=== PATIENT | male | born 1945 | race Caucasian/White ===

== ENCOUNTER 2018-01-29 08:00 | Outpatient (CLI) | payer MEDICARE ==
[2018-01-29 12:51] LABS: BASOPHILS # (AUTO) 0.1 10^3/uL (0.0-0.1); EOSINOPHILS # (AUTO) 0.2 10^3/uL (0.0-0.7); EOSINOPHILS % (AUTO) 2.3 %; HGB - HEMOGLOBIN 10.7 g/dL (14.0-18.0); LYMPHOCYTES # (AUTO) 1.3 10^3/uL (1.5-3.5); LYMPHOCYTES % (AUTO) 18.2 %; MEAN CORPUSCULAR HEMOGLOBIN 26.4 pg (27.0-31.0); MEAN CORPUSCULAR VOLUME 79.9 fL (80.0-94.0); MEAN PLATELET VOLUME 9.8 fL (7.4-11.4); MONOCYTES # (AUTO) 0.7 10^3/uL (0.0-1.0); MONOCYTES % (AUTO) 9.2 %; NEUTROPHILS # (AUTO) 5.1 10^3/uL (1.5-6.6); NEUTROPHILS % (AUTO) 69.3 %; PLT - PLATELET COUNT 235 10^3/uL (130-450); RED BLOOD COUNT 4.06 10^6/uL (4.70-6.10); RED CELL DISTRIBUTION WIDTH 16.9 % (12.0-15.0); WHITE BLOOD COUNT 7.4 x10^3/uL (4.8-10.8)
[2018-01-29 13:21] LABS: THYROID STIMULATING HORMONE 1.33 uIU/mL (0.34-5.60)
[2018-01-29 13:22] LABS: ALBUMIN 3.7 g/dL (3.2-5.5); ALBUMIN/GLOBULIN RATIO 1.1 (1.0-2.2); ALKALINE PHOSPHATASE 68 IU/L (42-121); ALT ALANINE AMINOTRANSFERASE 16 IU/L (10-60); AST ASPARTATE AMINOTRANSFERASE 18 IU/L (10-42); BILIRUBIN,TOTAL 0.4 mg/dL (0.2-1.0); BUN - BLOOD UREA NITROGEN 20 mg/dL (6-20); CALCIUM 8.5 mg/dL (8.5-10.3); CARBON DIOXIDE - CO2 24 mmol/L (21-32); CHLORIDE 102 mmol/L (101-111); CHOL/HDL RATIO 3.1 (<5.0); CHOLESTEROL 141 mg/dL; GFR - MDRD 73 (>89); GLUCOSE 89 mg/dL (70-100); HDL CHOLESTEROL 45 mg/dL; LDL CHOLESTEROL,CALCULATED 79 mg/dL; LDL/HDL RATIO 1.8 (<3.6); SODIUM 135 mmol/L (135-145); TOTAL PROTEIN 7.1 g/dL (6.7-8.2); VLDL CHOLESTEROL 17 mg/dL
[2018-01-31 07:39] LABS: % IRON SATURATION 14 % (20-50); IRON 35 ug/dL (45-182); TOTAL IRON BINDING CAPACITY 258 ug/dL (250-450); TRANSFERRIN 184 mg/dL (180-329)
[2018-01-31 07:42] LABS: FERRITIN 345.5 ng/mL (23.9-336.2)
== END 2018-01-29 08:01 | disposition home or self-care (01) ==
LOC: LAB.N 08:00
PROVIDERS: ATTEND Internal Medicine
DX: Z13.6 Encounter for screening for cardiovascular disorders (principal); E78.5 Hyperlipidemia, unspecified; B35.1 Tinea unguium; R41.3 Other amnesia; D64.9 Anemia, unspecified; D50.9 Iron deficiency anemia, unspecified
CPT/HCPCS: 36415; 80053; 80061; 82607; 82728; 83540; 83721; 84443; 84466; 85025; 86780

== ENCOUNTER 2018-07-06 08:00 | Outpatient (CLI) | payer MEDICARE | END 2018-07-06 08:01 | disposition home or self-care (01) | LOC: LAB.N 08:00 | PROVIDERS: ATTEND Internal Medicine | DX: K62.1 Rectal polyp (principal) | CPT/HCPCS: 36415; 82565; 85014; 85027 ==

== ENCOUNTER 2019-10-15 14:40 | Emergency (ER) | payer MEDICARE ==
[2019-10-15 14:53] VITALS: BP 161/80
--- NOTE | 2019-10-15 14:59 | ED Physician Documentation ---
History of Present Illness - Stated complaint Stated Complaint: LT ARM LAC - Chief complaint Chief Complaint: Laceration - Additonal information Additional information: This is a 74-year-old male presents with a laceration of. He is opening a box of the [place] knife and it slipped and cut tissue of his volar forearm. He had some mild bleeding which was controlled with direct pressure. He does not know when his last tetanus was. He denies any weakness or numbness or difficulty moving his fingers or wrist or arm. Review of Systems Skin: reports: Laceration (s) Musculoskeletal: reports: Extremity pain PD PAST MEDICAL HISTORY - Allergies Allergies/Adverse Reactions: Allergies Allergy/AdvReac Type Severity Reaction Status Date / Time No Known Drug Allergies Allergy Verified 10/15/19 14:44 PD ED PE NORMAL - General General: Alert and oriented X 3 - HEENT HEENT: Atraumatic - Cardiac Cardiac: Strong equal pulses - Respiratory Respiratory: No respiratory distress - Extremities Extremities: Other (There is a 1.5 cm laceration to the left forearm that extends just through the epidermis, there is some subcutaneous tissue visible but there is no tendon or muscle damage. Patient has no active bleeding, no foreign body seen. Is strong distal radial and ulnar pulses, brisk capillary refill normal movement of his wrist and fingers, sensation to light touch intact over the entire distal extremity.) Results - Vitals Vitals: Vital Signs - 24 hr 10/15/19 14:44 Temperature 36.6 C Heart Rate 87 Respiratory 17 Rate Blood Pressure 161/80 H O2 Saturation 100 Oxygen O2 Source Room air Procedures - Laceration (location) L forearm Length in cm: 1.5 Wound type: Linear Neurovascular status: Sensory intact, Motor intact, Vascular intact Tendon involvement: Tendon intact Skin layer closure: Dermabond, Steri strips Other: Patient tolerated well, No complications, Tetanus booster given Complexity: Simple PD MEDICAL DECISION MAKING - ED course ED course: Patient presents with a superficial 1 simple laceration of his left forearm and extend into any deeper tissues. He is neurovascularly intact. The wound was irrigated with normal saline copiously, and then repaired with Steri-Strips and Dermabond within excellent results. His tetanus was updated. I reviewed return precautions including signs of infection, and discussed wound care, and patient was discharged home in the care of his Departure - Departure Disposition: 01 Home, Self Care Clinical Impression: Laceration Condition: Good Instructions: ED Laceration All Follow-Up: Radha Randall MD [Primary Care Provider] - As Needed Comments: Your cut was repaired with butterflies and skin glue. These will flake off on their own after a week or so. If the wound splits open in the next day or two return to the emergency department. Keep an eye out for signs of infection such as redness streaking up the arm or pus draining from the wound. You may run water over the area, but do not scrub at it until the skin glue has fallen off
[2019-10-15] MEDS ORDERED: TETANUS/DIPHTHERIA/PERTUSSIS 0.5 ML SYRINGE IM ONE (15:00)
== END 2019-10-15 15:16 | disposition home or self-care (01) ==
LOC: ED 14:40
DX: S51.812A Laceration without foreign body of left forearm, initial encounter (principal); W26.0XXA Contact with knife, initial encounter; Y93.89 Activity, other specified; Z23 Encounter for immunization
CPT/HCPCS: 12001; 90471

== ENCOUNTER 2020-08-30 14:59 | Outpatient (CLI) | payer MEDICARE | END 2020-08-30 15:00 | disposition EMS.NT | LOC: EMS 14:59 | PROVIDERS: ATTEND Surgery | DX: Z03.89 Encounter for observation for other suspected diseases and conditions ruled out (principal) ==

== ENCOUNTER 2020-09-04 11:27 | Outpatient (CLI) | payer MEDICARE ==
[2020-09-04] MEDS ORDERED: IOVERSOL 320 50 ML VIAL ONE (11:44)
[2020-09-04] MEDS ORDERED: IOVERSOL 320 100 ML VIAL IVP ONE ×2 (11:44→16:03)
--- NOTE | 2020-09-04 14:14 | CT Report ---
PROCEDURE: CHEST W INDICATIONS: OTHER ABNL FINDINGS IN SPECIMENS FROM OTH ORG/TISS CONTRAST: IV CONTRAST: Optiray 320 ml: 100 PO CONTRAST: Optiray 320 ml50 TECHNIQUE: After the administration of intravenous contrast, 5 mm thick sections acquired from the pulmonary api olu to the posterior costophrenic angles. 7 mm thick coronal MIP reformats were acquired. For radia tion dose reduction, the following was used: automated exposure control, adjustment of mA and/or kV according to patient size. COMPARISON: None. FINDINGS: Image quality: Excellent. Lungs and pleura: Mild emphysematous changes at the lung apices. Moderate to large bilateral depende ntly layering pleural effusions are present. There is compressive atelectasis of the posterior lower lobes. The aerated portions of the lungs are normal without nodules or consolidations. Central and pe ripheral airways are patent and normal in caliber. Mediastinum: Heart size is normal. Dense coronary artery calcification. No pericardial effusion. No mediastinal or hilar adenopathy by size criteria. Thoracic aorta and central pulmonary arteries are normal in size. Moderate aortic arch calcification. Esophagus is normal in caliber. No hiatal radha ia. Bones and chest wall: Mild circumferential subcutaneous edema. No suspicious bony lesions. No verte bral body compression fractures. No axillary or supraclavicular adenopathy by size criteria. Thyroi d gland is within normal limits.. IMPRESSION: 1. Symmetric, moderate to large bilateral pleural effusions without visible pleural thickening or irr egularity. 2. Dense coronary artery calcification and normal sized heart. 3. No adenopathy in the chest. Reviewed by: Marleny Pablo MD on 09/04/2020 2:13 PM PDT Approved by: Marleny Pablo MD on 09/04/2020 2:13 PM PDT Station ID: [id number]
--- NOTE | 2020-09-04 14:24 | CT Report ---
PROCEDURE: Abdomen/Pelvis W INDICATIONS: OTH ABNL FINDINGS IN SPECIMENS FROM OTH ORG/TISSUE CONTRAST: IV CONTRAST: Optiray 320 ml: 100 PO CONTRAST: Optiray 320 ml50 TECHNIQUE: After the administration of 100 cc Optiray 320 IV and oral contrast, 5 mm thick sections acquired fro m the diaphragms to the symphysis. 5 mm thick coronal and sagittal reformats were acquired. For rad iation dose reduction, the following was used: automated exposure control, adjustment of mA and/or k V according to patient size. COMPARISON: None. FINDINGS: Image quality: Excellent. ABDOMEN: Lung bases: Lung bases demonstrate symmetric large bilateral pleural effusions. Heart size is dmitriy l. Solid organs: Subcentimeter nonspecific hypodensity present in segment V inferiorly. The liver appear s otherwise normal. The spleen demonstrates several indistinct hypodensities, the largest in the infe rior pole measures roughly 3.1 cm. Gallbladder is unremarkable. Biliary system is non dilated. Jackson creas enhances normally. No adrenal nodules. Kidneys demonstrate normal size and enhancement, witho ut hydronephrosis. There is a partially exophytic cyst arising from the upper pole of the right kidne y. Peritoneum and bowel: Small amount of ascites is present in the perihepatic, perisplenic, and pelvic regions. Small hydroceles are partially imaged. There is diffuse haziness throughout the mesentery. B owel loops demonstrate normal wall thickness and caliber. No free fluid or air. Nodes and vessels: Bulky confluent soft tissue is present in the periaortic retroperitoneum surroundi ng the aorta, displacing it anteriorly, and encasing renal arteries and mesenteric origins. Left retr ocrural bulky adenopathy and large common iliac nodes are present. Moderate size central mesenteric l ymph node measuring 2 cm in short axis on series 3 image 33. Heavy abdominal aortic and branch artery calcification. Distal abdominal aortic aneurysm measuring 3.1 cm. The inferior vena cava is normal s ize. Miscellaneous: No ventral hernias. Diffuse subcutaneous edema consistent with anasarca. PELVIS: Genitourinary: Bladder wall thickness is normal. Normal size prostate gland. Miscellaneous: Small fat and fluid containing bilateral inguinal hernias. There is heavy vascular luis cification of the internal and external iliac arteries. There is a prominent left external iliac odalis ry. No inguinal adenopathy. Bones: No suspicious bony lesions. No vertebral body compression fractures. IMPRESSION: 1. Extensive bulky and confluent retroperitoneal adenopathy with some retrocrural, mesenteric, and le ft external iliac lymph nodes. Findings are suspicious for lymphoma, though metastatic disease cannot be excluded. A discrete primary tumor is not identified. 2. Multiple indistinct splenic hypodensities. 3. Small amount of ascites. 4. Diffuse anasarca. 5. Bilateral pleural effusions. 6. Heavy systemic atherosclerotic calcification. Reviewed by: Marleny Pablo MD on 09/04/2020 2:23 PM PDT Approved by: Marleny Pablo MD on 09/04/2020 2:23 PM PDT Station ID: [id number]
[2020-09-04] MEDS ORDERED: IOVERSOL 320 50 ML VIAL PO ONE (16:03)
== END 2020-09-04 11:28 | disposition home or self-care (01) ==
LOC: MAC.MOP 11:27
PROVIDERS: ATTEND Internal Medicine
DX: R59.9 Enlarged lymph nodes, unspecified (principal); R60.1 Generalized edema; J90 Pleural effusion, not elsewhere classified; R93.5 Abnormal findings on diagnostic imaging of other abdominal regions, including retroperitoneum
CPT/HCPCS: 71260; 74177; Q9967

== ENCOUNTER 2020-09-17 17:11 | Outpatient (CLI) | payer MEDICARE | END 2020-09-17 17:12 | disposition critical access hospital (66) | LOC: EMS 17:11 | PROVIDERS: ATTEND Surgery | DX: R41.0 Disorientation, unspecified (principal) | CPT/HCPCS: A0425; A0429 ==

== ENCOUNTER 2020-09-17 18:07 | Inpatient (IN) | payer MEDICARE ==
[2020-09-17 18:24] LABS: BASOPHILS % (AUTO) 0.2 %; HGB - HEMOGLOBIN 9.1 g/dL (14.0-18.0); LYMPHOCYTES # (AUTO) 0.3 10^3/uL (1.5-3.5); MEAN CORPUSCULAR HGB CONC 29.4 g/dL (32.0-36.0); MEAN CORPUSCULAR VOLUME 75.1 fL (80.0-94.0); MONOCYTES # (AUTO) 0.4 10^3/uL (0.0-1.0); MONOCYTES % (AUTO) 6.2 %; NEUTROPHILS # (AUTO) 5.6 10^3/uL (1.5-6.6); NEUTROPHILS % (AUTO) 89.1 %; PLT - PLATELET COUNT 250 10^3/uL (130-450); RED BLOOD COUNT 4.13 10^6/uL (4.70-6.10); RED CELL DISTRIBUTION WIDTH 24.4 % (12.0-15.0); WHITE BLOOD COUNT 6.3 x10^3/uL (4.8-10.8)
--- NOTE | 2020-09-17 18:25 | ED Physician Documentation ---
History of Present Illness - Stated complaint Stated Complaint: ALOC - History obtained from History obtained from: Patient, Family - Additonal information Additional information: 74-year-old male was brought into the emergency department for evaluation of altered mental patient. His reports that over the last few days he has been intermittently agitated or sometimes confused. Today he has been calm. There is concern in his history for suspected lymphoma. He recently had a CT scan that showed retroperitoneal lymphadenopathy. Metastatic disease is not yet ruled out. The patient is scheduled to undergo a biopsy at [facility] on October 07. His reports that he has been having recurrent falls but this has been ongoing for many months. At baseline Dominic is now mostly bedbound and is now unable to get up with a walker. She is using a bedside commode sometimes but mostly using depends diapers. Past medical history is most significant for anemia. He did recently undergo a colonoscopy and which they found bleeding ulcers. His reports that he was started on omeprazole and the black stools have since stopped. Patient is a former smoker. On initial presentation patient had saturations of 88% on room air. He was placed on 2 L nasal cannula with improvement of sats into the mid 90s Review of Systems Unable to obtain: AMS Constitutional: denies: Fever, Chills Cardiac: denies: Chest pain / pressure, Palpitations Respiratory: denies: Dyspnea, Cough GI: reports: Bloody / black stool Neurologic: reports: Confused, Altered mental status PD PAST MEDICAL HISTORY - Past Surgical History Past Surgical History: Yes - Present Medications Home Medications: Ambulatory Orders Medication Instructions Recorded Confirmed Omeprazole Magnesium [Prilosec] 1 tab PO DAILY 09/09/20 09/09/20 Lidocaine 5 % TOP Q4HR PRN 09/15/20 09/15/20 - Allergies Allergies/Adverse Reactions: Allergies Allergy/AdvReac Type Severity Reaction Status Date / Time No Known Drug Allergies Allergy Verified 08/05/20 10:40 - Social History Does the pt smoke?: No Smoking Status: Former smoker - Immunizations Immunizations are current?: No PD ED PE EXPANDED - General General: Alert, No acute distress, Disheveled, poorly kept - HEENT HEENT: PERRL, EOMI - Neck Neck: Supple w/out meningeal sx. No: Adenopathy, Limited ROM - Cardiac Cardiac: Regular Rate, Irregularly irregular, Murmur Present, Radial strong equal, Pedal strong equal, Cap refill < 2 sec - Respiratory Respiratory: Clear to ausultation anum. No: Distress, Labored - Abdomen Abdomen: Normal Bowel sounds. No: Tender to palpation - Derm Derm: Bruising (Multiple areas of bruising seen on upper arms and hands) - Extremities Extremities: Left foot (Unstageable decubitus ulcer left heel), Other (Swelling of both the arms and legs pitting edema of all 4 extremities) - Neuro Neuro: Confused, CNII-XII intact, Normal speech - GCS Eye Opening: Spontaneous Motor: Obeys Commands Verbal: Confused Total: 14 Results - Vitals Vitals: Vital Signs - 24 hr 09/17/20 09/17/20 09/17/20 18:10 18:20 18:30 Temperature 37.6 C H Heart Rate 103 H 109 H 99 Respiratory 18 23 24 Rate Blood Pressure 175/96 H 152/96 H 129/88 H O2 Saturation 88 L 09/17/20 09/17/20 19:03 19:13 Temperature 37.5 C Heart Rate 97 Respiratory 22 Rate Blood Pressure 128/88 H O2 Saturation 90 L 97 Oxygen O2 Source Nasal cannula - EKG (time done) 1826 Rate: Rate (enter#) (110) Rhythm: Atrial fibrillation [place]: Other Intervals: Normal NM, Prolonged QT QRS: Normal Ischemia: Normal ST segments Compare to prior EKG: Old EKG unavailable Computer interpretation: Agree with computer - Labs Labs: Laboratory Tests 09/17/20 09/17/20 09/17/20 18:01 18:01 18:01 WBC 6.3 RBC 4.13 L Hgb 9.1 L Hct 31.0 L MCV 75.1 L MCH 22.0 L MCHC 29.4 L RDW 24.4 H Plt Count 250 MPV 10.0 Neut # (Auto) 5.6 Lymph # (Auto) 0.3 L [place] # (Auto) 0.4 Eos # (Auto) 0.0 Baso # (Auto) 0.0 Absolute Nucleated RBC 0.00 Nucleated RBC % 0.0 Manual Slide Review Indicated Platelet Estimate NORMAL (130-450,000) Platelet Morphology NORMAL APPEARANCE RBC Morph Micro Appear 1+ MICROCYTOSIS PT INR Sodium 131 L Potassium 3.7 Chloride 91 L Carbon Dioxide 27 Anion Gap 13.0 BUN 17 Creatinine 0.6 Estimated GFR (MDRD) 131 Glucose 128 H Lactic Acid Calcium 7.8 L Total Bilirubin 0.6 AST 28 ALT 22 Alkaline Phosphatase 133 H Troponin I High Sens 91.9 H* B-Natriuretic Peptide Total Protein 5.8 L Albumin 2.0 L Globulin 3.8 Albumin/Globulin Ratio 0.5 L Lipase 21 L Urine Color Urine Clarity Urine pH Ur Specific [place] Urine Protein Urine Glucose (UA) Urine Ketones Urine Occult Blood Urine Nitrite Urine Bilirubin Urine Urobilinogen Ur Leukocyte Esterase Ur Microscopic Review Urine Culture Comments Urine Opiates Screen Ur Oxycodone Screen Urine Methadone Screen Ur Propoxyphene Screen Ur Barbiturates Screen Ur Tricyclics Screen Ur Phencyclidine Scrn Ur Amphetamine Screen U Methamphetamines Scrn U Benzodiazepines Scrn Urine Cocaine Screen U Cannabinoids Screen 09/17/20 09/17/20 09/17/20 18:01 18:01 18:01 WBC RBC Hgb Hct MCV MCH MCHC RDW Plt Count MPV Neut # (Auto) Lymph # (Auto) [place] # (Auto) Eos # (Auto) Baso # (Auto) Absolute Nucleated RBC Nucleated RBC % Manual Slide Review Platelet Estimate Platelet Morphology RBC Morph Micro Appear PT 13.1 H INR 1.2 Sodium Potassium Chloride Carbon Dioxide Anion Gap BUN Creatinine Estimated GFR (MDRD) Glucose Lactic Acid 2.2 Calcium Total Bilirubin AST ALT Alkaline Phosphatase Troponin I High Sens B-Natriuretic Peptide 2133 H Total Protein Albumin Globulin Albumin/Globulin Ratio Lipase Urine Color Urine Clarity Urine pH Ur Specific [place] Urine Protein Urine Glucose (UA) Urine Ketones Urine Occult Blood Urine Nitrite Urine Bilirubin Urine Urobilinogen Ur Leukocyte Esterase Ur Microscopic Review Urine Culture Comments Urine Opiates Screen Ur Oxycodone Screen Urine Methadone Screen Ur Propoxyphene Screen Ur Barbiturates Screen Ur Tricyclics Screen Ur Phencyclidine Scrn Ur Amphetamine Screen U Methamphetamines Scrn U Benzodiazepines Scrn Urine Cocaine Screen U Cannabinoids Screen 09/17/20 18:35 WBC RBC Hgb Hct MCV MCH MCHC RDW Plt Count MPV Neut # (Auto) Lymph # (Auto) [place] # (Auto) Eos # (Auto) Baso # (Auto) Absolute Nucleated RBC Nucleated RBC % Manual Slide Review Platelet Estimate Platelet Morphology RBC Morph Micro Appear PT INR Sodium Potassium Chloride Carbon Dioxide Anion Gap BUN Creatinine Estimated GFR (MDRD) Glucose Lactic Acid Calcium Total Bilirubin AST ALT Alkaline Phosphatase Troponin I High Sens B-Natriuretic Peptide Total Protein Albumin Globulin Albumin/Globulin Ratio Lipase Urine Color YELLOW Urine Clarity CLEAR Urine pH 6.0 Ur Specific [place] 1.010 Urine Protein NEGATIVE Urine Glucose (UA) NEGATIVE Urine Ketones NEGATIVE Urine Occult Blood NEGATIVE Urine Nitrite NEGATIVE Urine Bilirubin NEGATIVE Urine Urobilinogen 1 (NORMAL) Ur Leukocyte Esterase NEGATIVE Ur Microscopic Review NOT INDICATED Urine Culture Comments NOT INDICATED Urine Opiates Screen NEGATIVE Ur Oxycodone Screen NEGATIVE Urine Methadone Screen NEGATIVE Ur Propoxyphene Screen NEGATIVE Ur Barbiturates Screen NEGATIVE Ur Tricyclics Screen NEGATIVE Ur Phencyclidine Scrn NEGATIVE Ur Amphetamine Screen NEGATIVE U Methamphetamines Scrn NEGATIVE U Benzodiazepines Scrn NEGATIVE Urine Cocaine Screen NEGATIVE U Cannabinoids Screen NEGATIVE - Rads (name of study) CXR Radiology: Final report received (Persistence appearance of mild to moderate bilateral pleural effusions.) CT head Radiology: Final report received (No acute intracranial pathology) CT chest Radiology: Final report received (Moderate bilateral pleural effusions, increased compared to prior exam. Superimposed areas of consolidation are present which could represent atelectasis and/or pneumonia) PD MEDICAL DECISION MAKING - ED course Complexity details: reviewed old records, reviewed results, re-evaluated patient, considered differential, d/w patient, d/w family ED course: 74-year-old male with a recent diagnosis of retroperitoneal lymphadenopathy and suspected lymphoma is brought into the emergency department for evaluation of altered mental status and intermittent agitation at home. On initial presentation this gentleman was saturating 88% on room air. Saturations improved to 100 with 2 L of nasal cannula. - EKG shows atrial fibrillation withotu ischemic changes. He has no history of previous a-fib in the past rate is about 110. Chest x-ray does show some cardiomegaly as well as bilateral pleural effusions. His BNP is greater than 2000. Swelling noted of both arms and legs. High-sensitivity troponin is 90. Given the pleural effusions, cardiomegaly and elevated BNP I believe this likely represents a demand ischemia. I deferred giving oblate beta-viviana for rate control in this gentleman as his this is an appropriate heart rate for the clinical situation. he is normo-tensive. A repeat troponin is pending - His has been concerned about confusion and agitation at home at times. This may be related to the hypoxia with which he initially presented. Head CT was unremarkable for acute findings. He has no focal neuro deficits on the neuro exam. Lactic acid is 2.2. Urine showed no signs of infection. MUDS screen was also negative. This gentleman does nto present as septic or in shock - I have discussed this case with the nighttime hospitalist Dr. Cabrera. We will bring him into the hospital for further tx of his AMS, hypoxia and pleural effusions. We will initiate diuresis and the first dose of Lasix has been ordered here in the urgency department. H emay benefit from echocardiogram as well. COVID-19 screening is pending. Departure - Departure Disposition: 66 [facility] DC/Xfer Clinical Impression: Pleural effusion, Hypoxia, Elevated brain natriuretic peptide (BNP) level Atrial fibrillation Qualifiers: Atrial fibrillation type: unspecified Qualified Code(s): I48.91 - Unspecified atrial fibrillation Altered mental status Qualifiers: Altered mental status type: unspecified Qualified Code(s): R41.82 - Altered mental status, unspecified
[2020-09-17 18:29] LABS: INR 1.2 (0.8-1.2); PT - PROTHROMBIN TIME 13.1 secs (9.9-12.6)
[2020-09-17 18:35] LABS: ALBUMIN/GLOBULIN RATIO 0.5 (1.0-2.2); BILIRUBIN,TOTAL 0.6 mg/dL (0.2-1.0); CALCIUM 7.8 mg/dL (8.5-10.3); CREATININE 0.6 mg/dL (0.6-1.2); TOTAL PROTEIN 5.8 g/dL (6.7-8.2)
[2020-09-17 18:36] LABS: PLATELET ESTIMATE, MANUAL NORMAL (130-450,000) (NORMAL); PLATELET MORPHOLOGY NORMAL APPEARANCE (NORMAL)
[2020-09-17 18:48] LABS: MUDS CUTOFF CONCENTRATIONS CUTOFF CONC BELOW:
[2020-09-17 18:51] LABS: BILIRUBIN,URINE NEGATIVE (NEGATIVE); GLUCOSE, URINE (UA) NEGATIVE (NEGATIVE); KETONES,URINE (UA) NEGATIVE (NEGATIVE); LEUKOCYTE ESTERASE, URINE NEGATIVE (NEGATIVE); NITRITE,URINE NEGATIVE (NEGATIVE); OCCULT BLOOD,URINE NEGATIVE (NEGATIVE); PROTEIN,URINE NEGATIVE (NEGATIVE); UROBILINOGEN,URINE 1 (NORMAL) E.U./dL (NORMAL)
[2020-09-17 18:54] LABS: CLARITY,URINE CLEAR (CLEAR)
--- NOTE | 2020-09-17 19:04 | XRAY Report ---
PROCEDURE: Chest 1 View X-Ray INDICATIONS: chest pain TECHNIQUE: One view of the chest was acquired. COMPARISON: CT chest 09/04/2020 FINDINGS: Surgical changes and devices: None. Lungs and pleura: There is a persistent appearance of mild to moderate bilateral pleural effusions. Mediastinum: Mediastinal contours appear normal. Heart size is enlarged. Bones and chest wall: No suspicious bony lesions. Overlying soft tissues appear unremarkable. IMPRESSION: Persistent appearance of mild to moderate bilateral pleural effusions. Areas of underlying atelectasi s and/or pneumonia cannot be excluded. Reviewed by: Jacque Tarango MD on 09/17/2020 7:03 PM PST Approved by: Jacque Tarango MD on 09/17/2020 7:03 PM PST Station ID: [id number]
[2020-09-17] MEDS ORDERED: IOVERSOL 320 100 ML VIAL IVP ONE ×2 (19:10→19:27)
[2020-09-17 19:12] LABS: AMPHETAMINE SCREEN,URINE NEGATIVE (NEGATIVE); BENZODIAZEPINES SCREEN, URINE NEGATIVE (NEGATIVE); COCAINE SCREEN URINE NEGATIVE (NEGATIVE); METHADONE SCREEN, URINE NEGATIVE (NEGATIVE); METHAMPHETAMINES SCREEN, URINE NEGATIVE (NEGATIVE); OPIATE SCREEN, URINE NEGATIVE (NEGATIVE); OXYCODONE SCREEN, URINE NEGATIVE (NEGATIVE); PROPOXYPHENE SCREEN, URINE NEGATIVE (NEGATIVE); TRICYCLIC ANTIDEPRESSANT,URINE NEGATIVE (NEGATIVE)
--- NOTE | 2020-09-17 19:23 | CT Report ---
PROCEDURE: HEAD WO INDICATIONS: AMS TECHNIQUE: Noncontrast 4.5 mm thick angled axial sections acquired from the foramen magnum to the vertex. For r adiation dose reduction, the following was used: automated exposure control, adjustment of mA and/or kV according to patient size. COMPARISON: None. FINDINGS: Image quality: Excellent. CSF spaces: Basal cisterns are patent. No extra-axial fluid collections. Ventricles are normal in size and shape. Brain: No midline shift. No intracranial masses or hemorrhage. Rodriguez-white matter interface is norm al. There is diffuse cortical volume loss with associated ex vacuo dilatation of the bilateral ventr icles. No acute intracranial hemorrhage or evidence of transcortical infarction. Scattered bilatera l periventricular white matter hypoattenuation likely sequela from chronic small vessel ischemic dise ase. Atherosclerotic calcifications within the intracranial segments of the bilateral internal caroti d arteries are noted. Skull and face: Calvarium and visualized facial bones are intact, without suspicious lesions. Sinuses: Visualized sinuses and mastoids are clear. IMPRESSION: CT head without acute intracranial abnormalities. Age-related senescent changes and sequela of chronic small vessel ischemic disease. Reviewed by: Chase Sun MD on 09/17/2020 6:21 PM [place] Approved by: Chase Sun MD on 09/17/2020 6:21 PM [facility] Station ID: [id number]
--- NOTE | 2020-09-17 19:46 | CT Report ---
PROCEDURE: CHEST W INDICATIONS: hypoxia; pleural effusions CONTRAST: IV CONTRAST: Optiray 320 ml: 100 PO CONTRAST: *NO PO CONTRAST TECHNIQUE: After the administration of intravenous contrast, 5 mm thick sections acquired from the pulmonary api olu to the posterior costophrenic angles. 7 mm thick coronal MIP reformats were acquired. For radia tion dose reduction, the following was used: automated exposure control, adjustment of mA and/or kV according to patient size. COMPARISON: Chest x-ray 09/17/2020, CT chest 09/04/2020 FINDINGS: Image quality: Excellent. Lungs and pleura: Moderate bilateral pleural effusions, mildly increased compared to prior CT on 08/14. Small areas of superimposed consolidations are present. Mediastinum: Heart size is mildly enlarged. No pericardial effusion. No mediastinal or hilar adenop athy by size criteria. Thoracic aorta and central pulmonary arteries are normal in size. Esophagus is normal in caliber. No hiatal hernia. Bones and chest wall: No suspicious bony lesions. No vertebral body compression fractures. No axil mary or supraclavicular adenopathy by size criteria. Thyroid gland is unremarkable. Abdomen: Mild perihepatic and perisplenic fluid are present. Multiple foci of low-attenuation are pr esent within the spleen, the largest measuring 29 mm. Low-attenuation focus within segment 5 of liver is unchanged. There is extensive periaortic adenopathy, incompletely visualized but appearing simila r compared to prior exam. Right renal cyst is noted. IMPRESSION: 1. Moderate bilateral pleural effusions, increased compared to prior exam. Superimposed areas of cons olidation are present which could represent atelectasis and/or pneumonia. 2. Unchanged appearance of splenic and hepatic lesions as well as upper abdominal adenopathy.. Reviewed by: Jacque Tarango MD on 09/17/2020 7:44 PM PST Approved by: Jacque Tarango MD on 09/17/2020 7:44 PM PST Station ID: [id number]
[2020-09-17] MEDS ORDERED: FUROSEMIDE 20 MG/2 ML VIAL IVP STA (19:55)
[2020-09-17] MEDS ORDERED: ONDANSETRON 4 MG/2 ML VIAL IVP PRN (19:56)
[2020-09-17] MEDS ORDERED: ASPIRIN 325 MG TABLET PO STA (20:11)
--- NOTE | 2020-09-17 20:14 | HISTORY & PHYSICAL EXAMINATION ---
Chief Complaint - Chief Complaint Chief Complaint: Altered mental status History of Present Illness - Admitted From Admitted From:: [facility] ED - History Obtained From Records Reviewed: Yes History obtained from: Patient and - History of Present Illness HPI Comment/Other: Patient is a 4-year-old male who was brought to the ED by his for concern of confusion last night. She reports that he was constantly trying to get out of bed. He kept saying he had to get up and go. This is despite the fact that he is unable to stand due to weakness. They have a home health nurse who comes to the house. Upon presentation to the ED the patient's oxygen saturation was 88% on room air however he denied shortness of breath. Work-up in the ED showed a BNP which was greater than 2000, troponin [address] scan of the chest showed moderate bilateral pleural effusion which was worse than the previous image that was done. The patient also has significant anasarca. It is more prominent on his legs and arms. The patient sees Dr. [place] Vargas [place] the [facility] His primary care physician is Dr. Randall and she had referred the patient to Dr. Vargas for work-up of anemia. The patient subsequently had bone marrow biopsy which was unremarkable and a colonoscopy which showed a gastric ulcer for which he was put on Prilosec twice daily. Over the past 5 months the patient has lost over 30 pounds due to poor appetite. Imaging he had done ordered by Dr. Vargas showed retroperitoneal lymphadenopathy for which lymphoma was suspected. The patient is due for biopsy of the lymph nodes at [place] on October 07, 2020 for further characterization. He was also found to be in atrial fibrillation with a heart rate between 101 and 110. He does not have any previous history of atrial fibrillation. As a result of his laboratory and radiologic findings he was presented for admission. At bedside the patient appears to be resting comfortably. He appears somewhat pale. He does not have any chest pain, dyspnea, abdominal pain, nausea, vomiting, fever or chills. History - Past Medical History GI: reports: Ulcers (gastric) MRSA Hx?: No Other Past Medical History: lymphoma - Past Surgical History Other past surgical history: Bone marrow biopsy - Family & Social History Family History Comment/Other: Patient's mother had breast cancer. His father had an unspecified cancer. This occurred in the 60s. Living arrangement: At home Living Situation: With spouse/s.o. Social History Notes: The patient smoked 1 pack/day for about 15 years. He quit in 2005. He used to drink 1 beer every other day with dinner. He does not use any recreational substances. - POLST Patient has POLST: No POLST Status: Full Code Meds/Allgy - Home Medications Home Medications: Ambulatory Orders Medication Instructions Recorded Confirmed Omeprazole Magnesium [Prilosec] 1 tab PO DAILY 09/09/20 09/09/20 Lidocaine 5 % TOP Q4HR PRN 09/15/20 09/15/20 - Allergies Allergies/Adverse Reactions: Allergies Allergy/AdvReac Type Severity Reaction Status Date / Time No Known Drug Allergies Allergy Verified 08/05/20 10:40 Review of Systems - Constitutional Constitutional: reports: Fatigue, Weakness, Poor appetite, Weight loss - Eyes Eyes: denies: Pain, Blurred vision - Ears, Nose & Throat Ears, Nose & Throat: denies: Ear pain, Sore throat, Hoarseness - Cardiovascular Cariovascular: reports: Irregular heart rate, Edema, Decr. exercise tolerance. denies: Chest pain, Lightheadedness, Syncope, Exertional dyspnea - Respiratory Respiratory: reports: Cough. denies: Sputum production, Wheezing, SOB at rest, SOB with exertion - Gastrointestinal Gastrointestinal: reports: Reflux/heartburn, Poor appetite. denies: Abdominal pain, Abdominal distention, Constipation, Nausea, Vomiting - Genitourinary Genitourinary: denies: Dysuria, Frequency, Urgency, Hematuria - Musculoskeletal Musculoskeletal: denies: Muscle pain - Integumentary Integumentary: reports: Other (Pale). denies: Rash, Pruritis, Lesions - Neurological Neurological: reports: General weakness. denies: Focal weakness, Headache, Dizziness - Psychiatric Psychiatric: denies: Depression, Anxiety - Endocrine Endocrine: denies: Polyuria, Polydypsia - Hematologic/Lymphatic Hematologic/Lymphatic: reports: Anemia, Bruising, Lymphadenopathy. denies: Petechiae Prior Level of Functionality: Patient is mostly bedbound due to significant weakness Exam - Vital Signs Vital Signs: Vital Signs x48h Temp Pulse Resp BP Pulse Ox 09/17/20 19:13 97 09/17/20 19:03 37.5 C 97 22 128/88 H 90 L 09/17/20 18:30 99 24 129/88 H 09/17/20 18:20 109 H 23 152/96 H 09/17/20 18:10 37.6 C H 103 H 18 175/96 H 88 L - Physical Exam General Appearance: positive: No acute distress, Alert, Other (Pale, gaunt appearing) Eyes Bilateral: positive: PERRL, EOMI ENT: positive: Dry mucous membranes Neck: positive: No JVD, Trachea midline Respiratory: positive: Chest non-tender, No respiratory distress, Other (Decreased/coarse breath sound). negative: Wheezes, Rales, Rhonchi Cardiovascular: positive: Irregularly irregular Abdomen: positive: Non-tender, No organomegaly, Nml bowel sounds, No distention. negative: Guarding, Rebound Back: positive: Nml inspection Skin: positive: No rash, Warm, Pallor Extremities: positive: Non-tender, Full ROM, Pedal edema (Anasarca) Neurologic/Psychiatric: positive: Oriented x3, Depressed mood/affect Conclusion/Plan - Problem List (1) New onset of congestive heart failure Conclusion/Plan: Patient was given Lasix 60 mg IV x1 in the ED. We will continue Lasix 20 mg IV twice daily to start tomorrow morning. Daily weights, strict I's and O's. 2D echo with bubble study ordered for the morning. Metoprolol succinate 25 mg p.o. daily ordered. Patient's initial troponin was 91. This suspected to be secondary to demand ischemia. We will trend troponin. Patient was given aspirin 325 mg x 1. (2) Elevated troponin Conclusion/Plan: Patient denies chest pain or dyspnea. Elevated troponin was thought to be secondary to CHF exacerbation, thus demand ischemia. Initial troponin was 91.9. Repeat troponin was 99.4. We will trend X1 more. Patient was given aspirin 325 mg x 1. We will continue to monitor patient on telemetry. (3) Retroperitoneal lymphadenopathy Conclusion/Plan: Patient follows up with Dr. Von Vargas at the [facility] [place]. The differential for this finding is lymphoma versus metastasis. The patient is scheduled for biopsy on October 07, 2020 at [place]. (4) Atrial fibrillation Conclusion/Plan: New onset. Suspect this is secondary to CHF exacerbation. Patient's heart rate is between 101 10. Diltiazem 30 mg p.o. every 6 hours ordered. Metoprolol succinate 25 mg p.o. daily ordered to start in the morning. We will monitor patient on telemetry. Qualifiers: Atrial fibrillation type: unspecified Qualified Code(s): I48.91 - Unspecified atrial fibrillation (5) Pleural effusion Conclusion/Plan: This could be due to CHF versus malignancy. Patient receiving IV diuretic. 2D echo ordered for the morning. We will repeat a chest x-ray and if no improvement will consider radiology consult for thoracentesis. (6) Anasarca Conclusion/Plan: This is likely multifactorial. Secondary to CHF and possibly malnourishment. The patient's Albumin is 2.0. Over the past 5 months the patient has lost about 30 pounds due to poor appetite. Patient is on Lasix 20 mg IV twice daily. Nutrition consult. - Lab Results Fish Bones: 09/17/20 18:01 09/17/20 18:01 Core Measures - Anticipated LOS I expect patient to be DC'd or transferred within 96 hours.: Yes - DVT/VTE - Prophylaxis VTE/DVT Device ordered at admit?: Yes VTE/DVT Prophylaxis med ordered at admit?: Yes
[2020-09-17] MEDS: diltiaZEM 30 MG TABLET PO SCH (21:59)
[2020-09-17] MEDS: HEPARIN 5,000 UNIT/ML VIAL SUBQ SCH (22:02)
[2020-09-17] MEDS ORDERED: LIDOCAINE 2% URO-JET 5 ML SYRINGE UR ONE (22:15)
[2020-09-18] MEDS: SODIUM CHLORIDE FLUSH 0.9% 10 ML SYRINGE IVP SCH ×3 (00:43→16:15)
[2020-09-18] MEDS: diltiaZEM 30 MG TABLET PO SCH ×2 (01:03→06:46)
[2020-09-18 05:33] LABS: BASOPHILS % (AUTO) 0.2 %; HGB - HEMOGLOBIN 8.1 g/dL (14.0-18.0); LYMPHOCYTES # (AUTO) 0.1 10^3/uL (1.5-3.5); LYMPHOCYTES % (AUTO) 2.1 %; MEAN CORPUSCULAR HEMOGLOBIN 22.2 pg (27.0-31.0); MEAN PLATELET VOLUME 9.4 fL (7.4-11.4); MONOCYTES # (AUTO) 0.3 10^3/uL (0.0-1.0); MONOCYTES % (AUTO) 4.7 %; NEUTROPHILS # (AUTO) 4.9 10^3/uL (1.5-6.6); NEUTROPHILS % (AUTO) 92.1 %; PLT - PLATELET COUNT 209 10^3/uL (130-450); RED BLOOD COUNT 3.65 10^6/uL (4.70-6.10); WHITE BLOOD COUNT 5.3 x10^3/uL (4.8-10.8)
[2020-09-18 05:44] LABS: CALCIUM 7.3 mg/dL (8.5-10.3); CREATININE 0.6 mg/dL (0.6-1.2)
[2020-09-18 06:07] LABS: PLATELET ESTIMATE, MANUAL NORMAL (130-450,000) (NORMAL); PLATELET MORPHOLOGY NORMAL APPEARANCE (NORMAL)
[2020-09-18] MEDS: PANTOPRAZOLE 40 MG TABLET PO SCH (06:47)
[2020-09-18] MEDS: SODIUM CHLORIDE FLUSH 0.9% 10 ML SYRINGE IVP PRN ×2 (06:49→10:39)
[2020-09-18] MEDS: FUROSEMIDE 20 MG/2 ML VIAL IVP SCH ×2 (06:49→16:06)
[2020-09-18] MEDS ORDERED: METOPROLOL SUCCINATE 25 MG TABLET PO SCH (09:00)
[2020-09-18] MEDS: HEPARIN 5,000 UNIT/ML VIAL SUBQ SCH ×2 (09:09→20:18)
[2020-09-18] MEDS: FERROUS GLUCONATE 324 MG TABLET PO SCH (10:38)
[2020-09-18] MEDS: POTASSIUM CHLOR 10 MEQ/100 ML 10 MEQ/100 ML BAG IV SCH ×3 (10:38→16:08)
[2020-09-18] MEDS: CYANOCOBALAMIN 500 MCG TABLET PO SCH (10:38)
[2020-09-18] MEDS: ASCORBIC ACID CHEW 500 MG TABLET PO SCH (10:38)
--- NOTE | 2020-09-18 10:52 | PHARMACY PROGRESS NOTE ---
- Best Possible Medication History Admit Date and Time: 09/17/201955 Processed by: Pharmacy Medication History completed: Yes Patient Interview: Completed Secondary Source(s): Physician records, Pharmacy records, Insurance records (PATIENT INTERVIEWED BY PRESENTATION TEAM MEMBER. PATIENT REPORTS HE ONLY TAKE OTC IRON. ) As the person ultimately responsible for medication therapy, providers are able to order a medication from an existing home medication list in [facility] via the "Reconcile Routine" prior to Confirmation of that medication by family support specialist. Such practice is discouraged except when the physician, in their clinical judgment, deems that a medical need exists for a medication without regard to previous use.
--- NOTE | 2020-09-18 12:00 | PROVIDER PROGRESS NOTE ---
Assessment/Plan - Problem List (1) Altered mental status Qualifiers: Altered mental status type: unspecified Qualified Code(s): R41.82 - Altered mental status, unspecified Assessment/Plan: This morning he was alert and had a normal conversation with me. In the afternoon he wanted to "sign himself out AMA and for me to bring him a wheelchair". I spoke to the by phone. He has been having up-and-down confusion for about 4 days. She has been able to reorient him and he then says "Oh right, I made a mistake." This may be from hypoxia documented at admission yesterday, possibly from hypopnatremia or possibly an infection (the pressure ulcer of the heel appears significant) but no pneumonia or UTI by U/A. Overnight he did have a fever of 37.8C. His neuro exam is non-focal. Head CT was unremarkable except for microangiopathic changes. A set of blood cx were sent at admission and are neg to date. I will order a brain MRI, for further brain evaluation. 1:1 sitter is also ordered. Continue to treat the hyponatremia. Will obtain repeat blood cx, then start empiric iv antibx and will request General Surgery for sharps debridement of the heel ulcer. (2) Acute respiratory failure with hypoxia Assessment/Plan: O2 sat was 88% on room air at admission. Etiology appears to be the CHF/anasarca with pleural effusions. Continue with supplemental oxygen and treat the volume overload with diuretics and he may need thoracentesis. (3) Hyponatremia Assessment/Plan: This is hypervolemic hyponatremia. Treat with bid IV diuretics, follow I's and O's and daily weights and sodium level daily. If needed, will add a free water restriction to his diet order. (4) Anasarca Assessment/Plan: He is on supplemental oxygen and getting diuresis and has slight improvement. Continue with diuretics, daily weights, I's and O's. Will order removal of the Gore when his mental status has cleared to baseline, probably tomorrow. Await the Echo result for adjustment of medications to treat volume overload.. (5) Hypoalbuminemia due to protein-calorie malnutrition Assessment/Plan: Patient is gaunt. Here is been a significant weight loss in the past several months. The low albumin of 2.0 is on notedly adding to his anasarca. We will give IV albumin today. Nutrition consult will be requested. He will need supplemental diet for increased protein intake. I updated the by phone regarding the plan. (6) New onset of congestive heart failure Assessment/Plan: Awaiting the echo result to determine other medication adjustments. Continue with IV twice daily Lasix. Follow I's and O's and daily weights. (7) Pleural effusion Assessment/Plan: We will start with treatment using IV diuretics. Will check a lateral decubitus chest x-ray tomorrow, and consider a therapeutic and diagnostic thoracentesis if it the effusion is still significant. (8) Pressure ulcer of heel Assessment/Plan: Was were taken by the admitting RN and this is a substantial wound. He had a fever overnight to 37.8C. Blood cx werre taken at admission. Will obtain repeat blood cx, then start empiric iv antibx using Vanco. Will order General Surgery consult for sharps debridement and then further management recommendations from surgery or wound nurse (9) Paroxysmal atrial fibrillation with rapid ventricular response Assessment/Plan: The rapid rate may be adding to his CHF. We will treat with higher doses of beta-blockers, and maximize the dose as tolerated by blood pressure. Will try not to use Cardizem, DCd it. We will start DOAC Check TSH to rule out hyperthyroidism as the cause. (10) Elevated troponin Assessment/Plan: The elevation is relatively "flat", consistent with demand ischemia and his CHF. The troponin pattern ruled him out for an acute MS. (11) Anemia Assessment/Plan: This appears to be hemodilutional, from his CHF. This may also be from a potential underlying malignancy, lymphoma is suspected. Follow H/H daily, transfuse if under 7. Will obtain B12, folate levels and iron studies and replace if low. (12) Hypokalemia Assessment/Plan: Likely from IV diuretics but also possibly from poor p.o. intake. Replace. Follow BMP daily (13) Malnutrition Assessment/Plan: Patient has lost 30 pounds in 5 months. This may be related to his malignancy. Dietary consult ordered - Current Meds Current Meds: Current Medications Generic Name Dose Route Start Last Admin Trade Name Freq PRN Reason Stop Dose Admin Ascorbic Acid 500 mg 09/18/20 10:00 09/18/20 10:38 Vitamin C PO 500 mg DAILY NANI Administration Cyanocobalamin 500 mcg 09/18/20 10:00 09/18/20 10:38 Vitamin B-12 PO 500 mcg DAILY NANI Administration Ferrous Gluconate 324 mg 09/18/20 10:00 09/18/20 10:38 Fergon PO 324 mg DAILYWM NANI Administration Furosemide 20 mg 09/18/20 06:00 09/18/20 06:49 Lasix Inj 20mg Vial IVP 20 mg BIDDIURETIC NANI Administration Heparin Sodium (Porcine) 5,000 unit 09/17/20 21:00 09/18/20 09:09 SUBQ 5,000 unit BID NANI Administration Potassium Chloride 10 meq in 100 mls @ 100 mls/hr 09/18/20 10:00 09/18/20 10:38 Potassium Chloride IV 09/18/20 12:59 100 mls/hr Q1H NANI Administration Pantoprazole Sodium 40 mg 09/18/20 07:00 09/18/20 06:47 Protonix PO 40 mg QDAC NANI Administration Sodium Chloride 10 ml 09/17/20 19:56 09/18/20 10:39 Normal Saline Flush 0.9% IVP 10 ml PRN PRN Administration NEEDED PER PROVIDER ORDERS Sodium Chloride 10 ml 09/18/20 01:00 09/18/20 09:10 Normal Saline Flush 0.9% IVP 10 ml 0100,0900,1700 NANI Administration - Lab Result Fish Bone Diagrams: 09/18/20 05:15 09/18/20 05:15 - Additional Planning My Orders: My Active Orders 09/18/20 10:00 Ascorbic Acid Chew [Vitamin C] 500 mg PO DAILY Cyanocobalamin [Vitamin B-12] 500 mcg PO DAILY Ferrous Gluconate [Fergon] 324 mg PO DAILYWM Potassium Chlor 10 Meq/100 ml [Potassium Chloride] 10 meq in 100 ml IV Q1H 09/18/20 10:10 Nutrition Consult [CONS] Routine 09/18/20 21:00 Metoprolol Succinate [Toprol Xl] 25 mg PO BID 09/19/20 05:00 MAGNESIUM [CHEM] DAILYLAB 09/19/20 08:00 Potassium Chloride Oral Soln 20 meq PO DAILYWM Subjective - Subjective Patient Reports: Resting Comfortably Nursing Reports: Other (Wanted to pull out iv and "sign out AMA".) Objective Vital Signs: Vital Signs - 24 hr 09/17/20 09/17/20 09/17/20 18:10 18:20 18:30 Temperature 37.6 C H Heart Rate 103 H 109 H 99 Heart Rate [ Brachial] Heart Rate [ Monitoring electrodes] Respiratory 18 23 24 Rate Blood Pressure 175/96 H 152/96 H 129/88 H Blood Pressure [Right Brachial artery] O2 Saturation 88 L 09/17/20 09/17/20 09/17/20 19:03 19:13 21:00 Temperature 37.5 C 37.3 C Heart Rate 97 99 Heart Rate [ Brachial] Heart Rate [ 110 H Monitoring electrodes] Respiratory 22 18 Rate Blood Pressure 128/88 H Blood Pressure 144/91 H [Right Brachial artery] O2 Saturation 90 L 97 95 09/17/20 09/17/20 09/18/20 21:59 23:51 01:03 Temperature 37.8 C H Heart Rate Heart Rate [ 98 Brachial] Heart Rate [ Monitoring electrodes] Respiratory 18 Rate Blood Pressure 138/66 H 99/63 Blood Pressure 99/63 [Right Brachial artery] O2 Saturation 95 09/18/20 09/18/20 09/18/20 03:14 05:00 06:46 Temperature 36.9 C 37.3 C Heart Rate Heart Rate [ 99 Brachial] Heart Rate [ Monitoring electrodes] Respiratory 18 Rate Blood Pressure 125/61 Blood Pressure 135/59 H [Right Brachial artery] O2 Saturation 95 09/18/20 09/18/20 08:10 09:12 Temperature 37.2 C Heart Rate Heart Rate [ 92 99 Brachial] Heart Rate [ Monitoring electrodes] Respiratory 20 20 Rate Blood Pressure Blood Pressure 104/54 L 106/40 L [Right Brachial artery] O2 Saturation 91 L 94 Oxygen O2 Source Room air I&O (Last 24 Hrs): Intake and Output Totals x24h 09/16/20 09/17/20 09/18/20 23:59 23:59 23:59 Intake Total 360 Output Total 1100 550 Balance -1100 -190 General: Alert HEENT: Mucous membr. moist/pink, Other (Pale, gaunt) Neck: Supple, No JVD Neuro: Alert, Disoriented, Non Focal Cardiovascular: Regular rate, No murmurs Respiratory: No respiratory distress (on O2 n.c.) Abdomen: Soft Genitourinary: Other (Has a Gore in place) Extremities: Other (2+ edema. Large black ulcer on heel of foot.) - Results Results: Laboratory Results WBC 5.3 x10^3/uL (4.8-10.8) 09/18/20 05:15 RBC 3.65 10^6/uL (4.70-6.10) L 09/18/20 05:15 Hgb 8.1 g/dL (14.0-18.0) L 09/18/20 05:15 Hct 27.0 % (42.0-52.0) L 09/18/20 05:15 MCV 74.0 fL (80.0-94.0) L 09/18/20 05:15 MCH 22.2 pg (27.0-31.0) L 09/18/20 05:15 MCHC 30.0 g/dL (32.0-36.0) L 09/18/20 05:15 RDW 24.0 % (12.0-15.0) H 09/18/20 05:15 Plt Count 209 10^3/uL (130-450) 09/18/20 05:15 MPV 9.4 fL (7.4-11.4) 09/18/20 05:15 Neut # (Auto) 4.9 10^3/uL (1.5-6.6) 09/18/20 05:15 Lymph # (Auto) 0.1 10^3/uL (1.5-3.5) L 09/18/20 05:15 [place] # (Auto) 0.3 10^3/uL (0.0-1.0) 09/18/20 05:15 Eos # (Auto) 0.0 10^3/uL (0.0-0.7) 09/18/20 05:15 Baso # (Auto) 0.0 10^3/uL (0.0-0.1) 09/18/20 05:15 Absolute Nucleated RBC 0.00 x10^3/uL 09/18/20 05:15 Nucleated RBC % 0.0 /100WBC 09/18/20 05:15 Manual Slide Review Indicated 09/18/20 05:15 Platelet Estimate NORMAL (130-450,000) (NORMAL) 09/18/20 05:15 Platelet Morphology NORMAL APPEARANCE (NORMAL) 09/18/20 05:15 RBC Morph Micro Appear 1+ MACROCYTOSIS (NORMAL) 1+ MICROCYTOSIS (NORMAL) 2+ HYPOCHROMASIA (NORMAL) 2+ ANISOCYTOSIS (NORMAL) 09/18/20 05:15 RBC Morph Micro Appear 1+ MACROCYTOSIS (NORMAL) 1+ MICROCYTOSIS (NORMAL) 2+ HYPOCHROMASIA (NORMAL) 2+ ANISOCYTOSIS (NORMAL) 09/18/20 05:15 RBC Morph Micro Appear 1+ MACROCYTOSIS (NORMAL) 1+ MICROCYTOSIS (NORMAL) 2+ HYPOCHROMASIA (NORMAL) 2+ ANISOCYTOSIS (NORMAL) 09/18/20 05:15 RBC Morph Micro Appear 1+ MACROCYTOSIS (NORMAL) 1+ MICROCYTOSIS (NORMAL) 2+ HYPOCHROMASIA (NORMAL) 2+ ANISOCYTOSIS (NORMAL) 09/18/20 05:15 PT 13.1 secs (9.9-12.6) H 09/17/20 18:01 INR 1.2 (0.8-1.2) 09/17/20 18:01 Sodium 131 mmol/L (135-145) L 09/18/20 05:15 Potassium 3.1 mmol/L (3.5-5.0) L 09/18/20 05:15 Chloride 92 mmol/L (101-111) L 09/18/20 05:15 Carbon Dioxide 27 mmol/L (21-32) 09/18/20 05:15 Anion Gap 12.0 (6-13) 09/18/20 05:15 BUN 16 mg/dL (6-20) 09/18/20 05:15 Creatinine 0.6 mg/dL (0.6-1.2) 09/18/20 05:15 Estimated GFR (MDRD) 131 (>89) 09/18/20 05:15 Glucose 109 mg/dL (70-100) H 09/18/20 05:15 Lactic Acid 2.2 mmol/L (0.5-2.2) 09/17/20 18:01 Calcium 7.3 mg/dL (8.5-10.3) L 09/18/20 05:15 Magnesium 2.0 mg/dL (1.7-2.8) 09/18/20 05:15 Total Bilirubin 0.6 mg/dL (0.2-1.0) 09/17/20 18:01 AST 28 IU/L (10-42) 09/17/20 18:01 ALT 22 IU/L (10-60) 09/17/20 18:01 Alkaline Phosphatase 133 IU/L (42-121) H 09/17/20 18:01 Troponin I High Sens 114.9 ng/L (2.3-19.7) H* 09/18/20 02:25 B-Natriuretic Peptide 1822 pg/mL (5-100) H 09/18/20 05:15 Total Protein 5.8 g/dL (6.7-8.2) L 09/17/20 18:01 Albumin 2.0 g/dL (3.2-5.5) L 09/17/20 18:01 Globulin 3.8 g/dL (2.1-4.2) 09/17/20 18:01 Albumin/Globulin Ratio 0.5 (1.0-2.2) L 09/17/20 18:01 Lipase 21 U/L (22-51) L 09/17/20 18: TSH 1.61 uIU/mL (0.34-5.60) 09/18/20 05:15 Urine Color YELLOW 09/17/20 18:35 Urine Clarity CLEAR (CLEAR) 09/17/20 18:35 Urine pH 6.0 PH (5.0-7.5) 09/17/20 18:35 Ur Specific [place] 1.010 (1.002-1.030) 09/17/20 18:35 Urine Protein NEGATIVE mg/dL (NEGATIVE) 09/17/20 18:35 Urine Glucose (UA) NEGATIVE mg/dL (NEGATIVE) 09/17/20 18:35 Urine Ketones NEGATIVE mg/dL (NEGATIVE) 09/17/20 18:35 Urine Occult Blood NEGATIVE (NEGATIVE) 09/17/20 18:35 Urine Nitrite NEGATIVE (NEGATIVE) 09/17/20 18:35 Urine Bilirubin NEGATIVE (NEGATIVE) 09/17/20 18:35 Urine Urobilinogen 1 (NORMAL) E.U./dL (NORMAL) 09/17/20 18:35 Ur Leukocyte Esterase NEGATIVE (NEGATIVE) 09/17/20 18:35 Ur Microscopic Review NOT INDICATED 09/17/20 18:35 Urine Culture Comments NOT INDICATED 09/17/20 18:35 Urine Opiates Screen NEGATIVE (NEGATIVE) 09/17/20 18:35 Ur Oxycodone Screen NEGATIVE (NEGATIVE) 09/17/20 18:35 Urine Methadone Screen NEGATIVE (NEGATIVE) 09/17/20 18:35 Ur Propoxyphene Screen NEGATIVE (NEGATIVE) 09/17/20 18:35 Ur Barbiturates Screen NEGATIVE (NEGATIVE) 09/17/20 18:35 Ur Tricyclics Screen NEGATIVE (NEGATIVE) 09/17/20 18:35 Ur Phencyclidine Scrn NEGATIVE (NEGATIVE) 09/17/20 18:35 Ur Amphetamine Screen NEGATIVE (NEGATIVE) 09/17/20 18:35 U Methamphetamines Scrn NEGATIVE (NEGATIVE) 09/17/20 18:35 U Benzodiazepines Scrn NEGATIVE (NEGATIVE) 09/17/20 18:35 Urine Cocaine Screen NEGATIVE (NEGATIVE) 09/17/20 18:35 U Cannabinoids Screen NEGATIVE (NEGATIVE) 09/17/20 18:35 SARS-CoV-2 (PCR) NOT DETECTED 09/17/20 20:08
[2020-09-18] MEDS ORDERED: ALBUMIN 25% 12.5 GM/50 ML VIAL IV STA (13:22)
[2020-09-18] MEDS ORDERED: VANCOMYCIN INJ 2 GM in SODIUM CHLORIDE 0.9% 500 ML IV SCH (16:30)
--- NOTE | 2020-09-18 17:53 | PHARMACY PROGRESS NOTE ---
- Therapy Status Vancomycin regimen day #: 1 Therapy status: Awaiting steady state Basis for treatment: Empirical Treatment indication: WOUND Trough goal: 15-20 - TIMUR Risk Risk level for Acute Kidney Injury: Moderate - Monitoring and Recommendation Clinical response to treatment: I&O Previous 24 hours 09/16/20 09/17/20 09/18/20 23:59 23:59 23:59 Intake Total 760 Output Total 1100 0421 Balance -1100 -5609 Lab Results 09/18/20 09/17/20 05:15 18:01 BUN 16 17 Creatinine 0.6 0.6 Estimated GFR (MDRD) 131 131 Monitoring plan: Daily serum creatinine (WOUND ULCER VANCOMYCIN INTIATED 2GM LOADING DOSE X1 (09/18) MAINTENANCE DOSE: 1500MG Q8H T1/2 = ~7H CRCL: ~126 ML/MIN (ABW); SCR: 0.6 MG/DL TROUGH SCHEDULED FOR 09/19 @ 1600 (BEFORE 4TH DOSE) MRSA PCR PENDING)
[2020-09-18] MEDS: METOPROLOL SUCCINATE 25 MG TABLET PO SCH (20:11)
[2020-09-18] MEDS ORDERED: diphenhydrAMINE 25 MG CAPSULE PO PRN (22:29)
[2020-09-19] MEDS: VANCOMYCIN INJ 1 GM, VANCOMYCIN INJ 500 MG in SODIUM CHLORIDE 0.9% 500 ML IV SCH ×3 (01:20→17:47)
[2020-09-19] MEDS: SODIUM CHLORIDE FLUSH 0.9% 10 ML SYRINGE IVP SCH ×3 (01:20→17:46)
[2020-09-19] MEDS: SODIUM CHLORIDE FLUSH 0.9% 10 ML SYRINGE IVP PRN ×4 (03:41→09:19)
[2020-09-19 05:11] LABS: BASOPHILS % (AUTO) 0.2 %; EOSINOPHILS % (AUTO) 0.2 %; HGB - HEMOGLOBIN 7.4 g/dL (14.0-18.0); LYMPHOCYTES # (AUTO) 0.2 10^3/uL (1.5-3.5); LYMPHOCYTES % (AUTO) 4.2 %; MEAN CORPUSCULAR HEMOGLOBIN 21.6 pg (27.0-31.0); MEAN CORPUSCULAR HGB CONC 29.1 g/dL (32.0-36.0); MEAN CORPUSCULAR VOLUME 74.3 fL (80.0-94.0); MONOCYTES # (AUTO) 0.4 10^3/uL (0.0-1.0); MONOCYTES % (AUTO) 7.7 %; NEUTROPHILS # (AUTO) 4.8 10^3/uL (1.5-6.6); NEUTROPHILS % (AUTO) 86.8 %; PLT - PLATELET COUNT 229 10^3/uL (130-450); RED BLOOD COUNT 3.42 10^6/uL (4.70-6.10); RED CELL DISTRIBUTION WIDTH 24.1 % (12.0-15.0); WHITE BLOOD COUNT 5.5 x10^3/uL (4.8-10.8)
[2020-09-19 05:19] LABS: CALCIUM 7.2 mg/dL (8.5-10.3); CREATININE 0.6 mg/dL (0.6-1.2); MAGNESIUM 1.9 mg/dL (1.7-2.8)
[2020-09-19] MEDS: FUROSEMIDE 20 MG/2 ML VIAL IVP SCH ×2 (05:47→15:39)
[2020-09-19] MEDS: PANTOPRAZOLE 40 MG TABLET PO SCH (06:05)
[2020-09-19] MEDS ORDERED: POTASSIUM CHLORIDE 20 MEQ/15 ML UDC PO SCH (08:00)
[2020-09-19] MEDS ORDERED: ALBUMIN 25% 12.5 GM/50 ML VIAL IV STA (08:11)
[2020-09-19] MEDS ORDERED: FUROSEMIDE 20 MG/2 ML VIAL IVP PRN (08:13)
--- NOTE | 2020-09-19 08:18 | PROVIDER PROGRESS NOTE ---
Assessment/Plan - Problem List (1) Altered mental status Qualifiers: Altered mental status type: unspecified Qualified Code(s): R41.82 - Altered mental status, unspecified Assessment/Plan: Unchanged, needs to be reoriented, cooperates when he is talked down. He needed one-to-one observation yesterday when he "said he was wanting to sign out AMA", trying to get OOB. His arrived and talked him down. I suspect his confusion is from his infection of his heel, significant anemia, and his marked hyponatremia. He was also desaturating when in the ER, is now on supplemental oxygen. Continue to treat the underlying problems, using antibiotics, diuretics, blood transfusion today. Await brain MRI, it was ordered yesterday but not yet done (?due to MRI schedule). He will need Haldol premedication. (2) Acute respiratory failure with hypoxia Assessment/Plan: Continue supplemental oxygen. Can treat the underlying problem which is his CHF/pleural effusion, volume overload. (3) Hyponatremia Assessment/Plan: Sodium worsened today from 131 yesterday to 129 today. Despite him being about 1.1 L negative in fluid balance on I's and O's, his BNP has increased from 1800 to 2300 today. I suspect this may be from worsening anemia, hemoglobin dropped from 8 to 7 to day. We will transfuse 1U of blood, Lasix after transfusion. We will give 1 more unit of albumin as well. Continue IV twice daily diuretics. We will add free water restriction in his diet orders Follow BMP daily (4) Anasarca Assessment/Plan: Continue diuresis. Follow I's and O's and daily weights (5) Acute combined systolic and diastolic heart failure Assessment/Plan: Echo was performed yesterday and showed LVEF of 35% with global hypokinesis plus diastolic dysfunction is present. Thne troponins were "flat", ruling out an acute PA. Continue with IV diuresis, follow I's and O's and manage the hyponatremia as ab ove. Will begin IGOR inhibitor and Spironolactone. His meds will need to be staggered because of his "soft" blood pressure. He is already on beta-viviana for control of his paroxysmal A. fib rate. His CHADS2 score is 2 or more, and he should be on a DOAC for stroke prophylaxis, however will await the sharps debridement by general surgery before starting anticoagulation. (6) Pleural effusion Assessment/Plan: Will continue with IV diuresis today and repeat the decubitus chest x-ray tomorrow (7) Pressure ulcer of heel Assessment/Plan: A swab of the wound was done, Gram stain shows gram-positive cocci>> Identified as staph aureus. Sensitivities are still pending Blood cx were also drawnand are neg todate. After cx sent, Vancomycin was started empirically yesterday We will order general surgery consult for sharps debridement and then further recommendations from general surgery or wound nurse (8) Anemia Assessment/Plan: Despite him being about 1.1 L negative in fluid balance on I's and O's, his BNP has increased from 1800 to 2300 today. I suspect this may be from worsening anemia, hemoglobin dropped from 8 yesterday to 7 today. We will transfuse 1U of blood, and give Lasix after transfusion. Follow H/H every 12 hours today Will order serum B12 and folate levels and replace if low (9) Paroxysmal atrial fibrillation with rapid ventricular response Assessment/Plan: HR is controlled on his B-p[viviana, when he goes into bursts of Afib (10) Hypokalemia Assessment/Plan: Caused by diuretics. Will replace po and iv Follow BMP q12h (11) Malnutrition Assessment/Plan: There is a 30 pound weight loss over the last 5 months. Appreciate nutrition consult (12) Hypoalbuminemia due to protein-calorie malnutrition Assessment/Plan: 1 more unit albumin ordered for today. - Current Meds Current Meds: Current Medications Generic Name Dose Route Start Last Admin Trade Name Guerita PRN Reason Stop Dose Admin Ascorbic Acid 500 mg 09/18/20 10:00 09/18/20 10:38 Vitamin C PO 500 mg DAILY NANI Administration Cyanocobalamin 500 mcg 09/18/20 10:00 09/18/20 10:38 Vitamin B-12 PO 500 mcg DAILY NANI Administration Ferrous Gluconate 324 mg 09/18/20 10:00 09/18/20 10:38 Fergon PO 324 mg DAILYWM NANI Administration Furosemide 20 mg 09/18/20 06:00 09/19/20 05:47 Lasix Inj 20mg Vial IVP 20 mg BIDDIURETIC NANI Administration Heparin Sodium (Porcine) 5,000 unit 09/17/20 21:00 09/18/20 20:18 SUBQ 5,000 unit BID NANI Administration Vancomycin HCl 1 gm/ 500 mls @ 250 mls/hr 09/19/20 01:00 09/19/20 03:41 Vancomycin HCl 500 mg/ Sodium IV Infused Chloride Q8H NANI Infusion Metoprolol Succinate 25 mg 09/18/20 21:00 09/18/20 20:11 Toprol Xl PO 25 mg BID NANI Administration Pantoprazole Sodium 40 mg 09/18/20 07:00 09/19/20 06:05 Protonix PO 40 mg QDAC NANI Administration Sodium Chloride 10 ml 09/17/20 19:56 09/19/20 05:53 Normal Saline Flush 0.9% IVP 10 ml PRN PRN Administration NEEDED PER PROVIDER ORDERS Sodium Chloride 10 ml 09/18/20 01:00 09/19/20 01:20 Normal Saline Flush 0.9% IVP 10 ml 0100,0900,1700 NANI Administration - Lab Result Fish Bone Diagrams: 09/19/20 04:45 09/19/20 04:45 - Additional Planning My Orders: My Active Orders 09/18/20 10:00 Ascorbic Acid Chew [Vitamin C] 500 mg PO DAILY Cyanocobalamin [Vitamin B-12] 500 mcg PO DAILY Ferrous Gluconate [Fergon] 324 mg PO DAILYWM 09/18/20 10:10 Nutrition Consult [CONS] Routine 09/18/20 14:31 BRAIN WO [MRI] Routine 09/18/20 15:12 CULTURE, BLOOD #1 [RM] Urgent 09/18/20 15:52 Miscellaenous Nursing Order [RC] ONCE 09/18/20 16:15 CUL,WOUND (AEROBIC) [RM] Stat 09/18/20 21:00 Metoprolol Succinate [Toprol Xl] 25 mg PO BID 09/19/20 Consult [General Surgery Consult] [CONS] Routine Guaiac [OCCULT BLOOD IN PAT. SINGLE] [RAPID] Urgent RBC, LEUKOREDUCED Stat TYPE AND SCREEN Stat TYPE AND SCREEN Stat 09/19/20 01:00 Vancomycin Inj [Vancomycin] 1 gm Vancomycin Inj 500 mg Sodium Chloride 0.9% [Normal Saline 0.9%] 500 ml IV Q8H 09/19/20 08:00 Potassium Chloride Oral Soln 20 meq PO DAILYWM 09/19/20 08:11 Albumin 25% @ 50 mls/hr x 1 Albumin 25% [Albuminar-25] 12.5 gm in 50 ml IV ONCE 09/19/20 08:13 Miscellaenous Nursing Order [RC] QSHIFT Transfuse RBCs Leukoreduced [RC] .ONCE FUROSEMIDE INJ 20mg VIAL [LASIX INJ 20mg VIAL] 20 mg IVP ONCE PRN 09/19/20 13:00 HEMOGLOBIN AND HEMATOCRIT [HEME] Timed Subjective - Subjective Patient Reports: Resting Comfortably Objective Vital Signs: Vital Signs - 24 hr 09/18/20 09/18/20 09/18/20 09:12 12:18 15:23 Temperature 36.8 C 37.1 C Heart Rate [ 99 85 56 L Brachial] Heart Rate [ Monitoring electrodes] Respiratory 20 18 20 Rate Blood Pressure 106/40 L 107/61 121/58 L [Right Brachial artery] O2 Saturation 94 93 94 09/18/20 09/18/20 09/18/20 19:08 19:16 23:46 Temperature 37.5 C 37.7 C H Heart Rate [ 79 Brachial] Heart Rate [ 84 Monitoring electrodes] Respiratory 21 20 Rate Blood Pressure 122/80 123/67 [Right Brachial artery] O2 Saturation 90 L 96 93 09/19/20 09/19/20 02:00 05:00 Temperature 37.2 C 37.3 C Heart Rate [ 80 Brachial] Heart Rate [ Monitoring electrodes] Respiratory 18 Rate Blood Pressure 130/62 [Right Brachial artery] O2 Saturation 95 Oxygen O2 Source Room air I&O (Last 24 Hrs): Intake and Output Totals x24h 09/17/20 09/18/20 09/19/20 23:59 23:59 23:59 Intake Total 1410 650 Output Total 1100 2925 250 Balance -1100 -1515 400 General: Other (Appears fatigued (just got Haldol to go to MRI)) HEENT: Mucous membr. moist/pink Neck: Supple, No JVD Neuro: Other (Per the RN, he was oriented x2 but thought he was in [facility]) Cardiovascular: Regular rate, No murmurs Respiratory: No respiratory distress, Breath sounds nml Abdomen: Soft Extremities: Other (2+ edema. Scrotal edema present. Heel wound is covered with a wide bandage.) - Results Results: Laboratory Results WBC 5.5 x10^3/uL (4.8-10.8) 09/19/20 04:45 RBC 3.42 10^6/uL (4.70-6.10) L 09/19/20 04:45 Hgb 7.4 g/dL (14.0-18.0) L 09/19/20 04:45 Hct 25.4 % (42.0-52.0) L 09/19/20 04:45 MCV 74.3 fL (80.0-94.0) L 09/19/20 04:45 MCH 21.6 pg (27.0-31.0) L 09/19/20 04:45 MCHC 29.1 g/dL (32.0-36.0) L 09/19/20 04:45 RDW 24.1 % (12.0-15.0) H 09/19/20 04:45 Plt Count 229 10^3/uL (130-450) 09/19/20 04:45 MPV 10.0 fL (7.4-11.4) 09/19/20 04:45 Neut # (Auto) 4.8 10^3/uL (1.5-6.6) 09/19/20 04:45 Lymph # (Auto) 0.2 10^3/uL (1.5-3.5) L 09/19/20 04:45 [place] # (Auto) 0.4 10^3/uL (0.0-1.0) 09/19/20 04:45 Eos # (Auto) 0.0 10^3/uL (0.0-0.7) 09/19/20 04:45 Baso # (Auto) 0.0 10^3/uL (0.0-0.1) 09/19/20 04:45 Absolute Nucleated RBC 0.00 x10^3/uL 09/19/20 04:45 Nucleated RBC % 0.0 /100WBC 09/19/20 04:45 Manual Slide Review Indicated 09/18/20 05:15 Platelet Estimate NORMAL (130-450,000) (NORMAL) 09/18/20 05:15 Platelet Morphology NORMAL APPEARANCE (NORMAL) 09/18/20 05:15 RBC Morph Micro Appear 1+ MACROCYTOSIS (NORMAL) 1+ MICROCYTOSIS (NORMAL) 2+ HYPOCHROMASIA (NORMAL) 2+ ANISOCYTOSIS (NORMAL) 09/18/20 05:15 RBC Morph Micro Appear 1+ MACROCYTOSIS (NORMAL) 1+ MICROCYTOSIS (NORMAL) 2+ HYPOCHROMASIA (NORMAL) 2+ ANISOCYTOSIS (NORMAL) 09/18/20 05:15 RBC Morph Micro Appear 1+ MACROCYTOSIS (NORMAL) 1+ MICROCYTOSIS (NORMAL) 2+ HYPOCHROMASIA (NORMAL) 2+ ANISOCYTOSIS (NORMAL) 09/18/20 05:15 RBC Morph Micro Appear 1+ MACROCYTOSIS (NORMAL) 1+ MICROCYTOSIS (NORMAL) 2+ HYPOCHROMASIA (NORMAL) 2+ ANISOCYTOSIS (NORMAL) 09/18/20 05:15 PT 13.1 secs (9.9-12.6) H 09/17/20 18:01 INR 1.2 (0.8-1.2) 09/17/20 18:01 Sodium 129 mmol/L (135-145) L 09/19/20 04:45 Potassium 3.1 mmol/L (3.5-5.0) L 09/19/20 04:45 Chloride 91 mmol/L (101-111) L 09/19/20 04:45 Carbon Dioxide 28 mmol/L (21-32) 09/19/20 04:45 Anion Gap 10.0 (6-13) 09/19/20 04:45 BUN 15 mg/dL (6-20) 09/19/20 04:45 Creatinine 0.6 mg/dL (0.6-1.2) 09/19/20 04:45 Estimated GFR (MDRD) 131 (>89) 09/19/20 04:45 Glucose 153 mg/dL (70-100) H 09/19/20 04:45 Lactic Acid 2.2 mmol/L (0.5-2.2) 09/17/20 18:01 Calcium 7.2 mg/dL (8.5-10.3) L 09/19/20 04:45 Magnesium 1.9 mg/dL (1.7-2.8) 09/19/20 04:45 Total Bilirubin 0.6 mg/dL (0.2-1.0) 09/17/20 18:01 AST 28 IU/L (10-42) 09/17/20 18:01 ALT 22 IU/L (10-60) 09/17/20 18:01 Alkaline Phosphatase 133 IU/L (42-121) H 09/17/20 18:01 Troponin I High Sens 114.9 ng/L (2.3-19.7) H* 09/18/20 02:25 B-Natriuretic Peptide 2335 pg/mL (5-100) H 09/19/20 04:45 Total Protein 5.8 g/dL (6.7-8.2) L 09/17/20 18:01 Albumin 2.0 g/dL (3.2-5.5) L 09/17/20 18:01 Globulin 3.8 g/dL (2.1-4.2) 09/17/20 18:01 Albumin/Globulin Ratio 0.5 (1.0-2.2) L 09/17/20 18: Lipase 21 U/L (22-51) L 09/17/20 18:01 TSH 1.61 uIU/mL (0.34-5.60) 09/18/20 05:15 Urine Color YELLOW 09/17/20 18:35 Urine Clarity CLEAR (CLEAR) 09/17/20 18:35 Urine pH 6.0 PH (5.0-7.5) 09/17/20 18:35 Ur Specific [place] 1.010 (1.002-1.030) 09/17/20 18:35 Urine Protein NEGATIVE mg/dL (NEGATIVE) 09/17/20 18:35 Urine Glucose (UA) NEGATIVE mg/dL (NEGATIVE) 09/17/20 18:35 Urine Ketones NEGATIVE mg/dL (NEGATIVE) 09/17/20 18:35 Urine Occult Blood NEGATIVE (NEGATIVE) 09/17/20 18:35 Urine Nitrite NEGATIVE (NEGATIVE) 09/17/20 18:35 Urine Bilirubin NEGATIVE (NEGATIVE) 09/17/20 18:35 Urine Urobilinogen 1 (NORMAL) E.U./dL (NORMAL) 09/17/20 18:35 Ur Leukocyte Esterase NEGATIVE (NEGATIVE) 09/17/20 18:35 Ur Microscopic Review NOT INDICATED 09/17/20 18:35 Urine Culture Comments NOT INDICATED 09/17/20 18:35 Nasal Screen MRSA (PCR) NEGATIVE (NEGATIVE) 09/18/20 16:15 Urine Opiates Screen NEGATIVE (NEGATIVE) 09/17/20 18:35 Ur Oxycodone Screen NEGATIVE (NEGATIVE) 09/17/20 18:35 Urine Methadone Screen NEGATIVE (NEGATIVE) 09/17/20 18:35 Ur Propoxyphene Screen NEGATIVE (NEGATIVE) 09/17/20 18:35 Ur Barbiturates Screen NEGATIVE (NEGATIVE) 09/17/20 18:35 Ur Tricyclics Screen NEGATIVE (NEGATIVE) 09/17/20 18:35 Ur Phencyclidine Scrn NEGATIVE (NEGATIVE) 09/17/20 18:35 Ur Amphetamine Screen NEGATIVE (NEGATIVE) 09/17/20 18:35 U Methamphetamines Scrn NEGATIVE (NEGATIVE) 09/17/20 18:35 U Benzodiazepines Scrn NEGATIVE (NEGATIVE) 09/17/20 18:35 Urine Cocaine Screen NEGATIVE (NEGATIVE) 09/17/20 18:35 U Cannabinoids Screen NEGATIVE (NEGATIVE) 09/17/20 18:35 SARS-CoV-2 (PCR) NOT DETECTED 09/17/20 20:08
[2020-09-19] MEDS ORDERED: VANCOMYCIN 1 GM VIAL ONE (08:39)
[2020-09-19] MEDS: POTASSIUM CHLOR 10 MEQ/100 ML 10 MEQ/100 ML BAG IV SCH ×2 (09:23→10:34)
[2020-09-19] MEDS ORDERED: HALOPERIDOL 5 MG/ML VIAL IVP PRN (10:00)
[2020-09-19] MEDS: HEPARIN 5,000 UNIT/ML VIAL SUBQ SCH ×2 (10:51→20:44)
[2020-09-19] MEDS: FERROUS GLUCONATE 324 MG TABLET PO SCH (10:52)
[2020-09-19] MEDS: POTASSIUM CHLORIDE 20 MEQ/15 ML UDC PO SCH (10:52)
[2020-09-19] MEDS: CYANOCOBALAMIN 500 MCG TABLET PO SCH (10:52)
[2020-09-19] MEDS: METOPROLOL SUCCINATE 25 MG TABLET PO SCH ×2 (10:52→20:48)
[2020-09-19] MEDS: ASCORBIC ACID CHEW 500 MG TABLET PO SCH (10:52)
[2020-09-19] MEDS: SPIRONOLACTONE 25 MG TABLET PO SCH (13:13)
--- NOTE | 2020-09-19 15:18 | CONSULTATION NOTE ---
Referring Provider Name of Referring Provider:: Ashely Pelayo Consult Date: 09/19/20 Chief Complaint - Chief Complaint Chief Complaint: Black heel ulcer History of Present Illness - Admitted From Admitted From:: ED - History Obtained From Records Reviewed: Provider History obtained from: Providers and Exam Limitations: None - History of Present Illness HPI Comment/Other: Unfortunate 74-year-old gentleman admitted from the emergency department yesterd ay complaining of acute changes in mental status. He is being evaluated for retroperitoneal lymphadenopathy and has significant baseline anasarca. He is admitted to the hospitalist service and is having his chemistries corrected. On exam, he was noted by the hospitalist to have a large black ulcer on his left heel due to pressure. His reports that he likes to push his feet against the the footboard of the bed and she has not been able to find a system of padding that he is not able to take apart.I have been asked to see him regarding debridement of this necrotic ulcer. History - Past Medical History GI: reports: Ulcers (gastric) MRSA Hx?: No Other Past Medical History: lymphoma - Past Surgical History Other past surgical history: Bone marrow biopsy - Family & Social History Family History Comment/Other: Patient's mother had breast cancer. His father had an unspecified cancer. This occurred in the 60s. Living arrangement: At home Living Situation: With spouse/s.o. Social History Notes: The patient smoked 1 pack/day for about 15 years. He quit in 2005. He used to drink 1 beer every other day with dinner. He does not use any recreational substances. - POLST Patient has POLST: No POLST Status: Full Code Meds/Allgy - Home Medications Home Medications: Ambulatory Orders Medication Instructions Recorded Confirmed Ferrous Gluconate 240 mg PO DAILY 09/18/20 09/18/20 - Allergies Allergies/Adverse Reactions: Allergies Allergy/AdvReac Type Severity Reaction Status Date / Time No Known Drug Allergies Allergy Verified 08/05/20 10:40 Exam - Vital Signs Reviewed Vital Signs: Yes Vital Signs: Vital Signs x48h Temp Pulse Pulse Resp BP BP Pulse Ox 09/19/20 13:52 17 93 09/19/20 13:16 37.2 C 75 16 148/75 H 09/19/20 13:05 37.3 C 66 14 115/57 L 09/19/20 13:00 37.3 C 74 18 125/51 L 09/19/20 12:05 37.4 C 93 16 129/55 L 93 09/19/20 08:20 36.7 C 90 18 126/65 96 - Physical Exam Extremities: positive: Pedal edema, Other (Pitting edema of bilateral feet. On the left there is a stage I pressure ulcer on the plantar surface of the foot. On the posterior surface of the heel there is a black eschar approximately 3 cm in greatest dimension. It is not fluctuant but it is tender to palpation and the surrounding tissue wa). negative: Calf tenderness Conclusion and Plan - Lab Results Laboratory Results 09/19/20 08:36: Blood Type O POSITIVE, Antibody Screen NEGATIVE, Crossmatch IS Only See Detail 09/19/20 04:45: B-Natriuretic Peptide 2335 H 09/19/20 04:45: Sodium 129 L, Potassium 3.1 L, Chloride 91 L, Carbon Dioxide 28, Anion Gap 10.0, BUN 15, Creatinine 0.6, Estimated GFR (MDRD) 131, Glucose 153 H, Calcium 7.2 L, Magnesium 1.9 09/19/20 04:45: WBC 5.5, RBC 3.42 L, Hgb 7.4 L, Hct 25.4 L, MCV 74.3 L, MCH 21.6 L, MCHC 29.1 L, RDW 24.1 H, Plt Count 229, MPV 10.0, Neut # (Auto) 4.8, Lymph # (Auto) 0.2 L, [place] # (Auto) 0.4, Eos # (Auto) 0.0, Baso # (Auto) 0.0, Absolute Nucleated RBC 0.00, Nucleated RBC % 0.0 09/18/20 16:15: Nasal Screen MRSA (PCR) NEGATIVE 09/18/20 05:15: TSH 1.61 09/18/20 05:15: Magnesium 2.0 09/18/20 05:15: B-Natriuretic Peptide 1822 H 09/18/20 05:15: Sodium 131 L, Potassium 3.1 L, Chloride 92 L, Carbon Dioxide 27, Anion Gap 12.0, BUN 16, Creatinine 0.6, Estimated GFR (MDRD) 131, Glucose 109 H, Calcium 7.3 L 09/18/20 05:15: WBC 5.3, RBC 3.65 L, Hgb 8.1 L, Hct 27.0 L, MCV 74.0 L, MCH 22.2 L, MCHC 30.0 L, RDW 24.0 H, Plt Count 209, MPV 9.4, Neut # (Auto) 4.9, Lymph # (Auto) 0.1 L, Bonner # (Auto) 0.3, Eos # (Auto) 0.0, Baso # (Auto) 0.0, Absolute Nucleated RBC 0.00, Nucleated RBC % 0.0, Manual Slide Review Indicated, Platelet Estimate NORMAL (130-450,000), Platelet Morphology NORMAL APPEARANCE, RBC Morph Micro Appear 2+ ANISOCYTOSIS 09/18/20 02:25: Troponin I High Sens 114.9 H* 09/17/20 20:30: Troponin I High Sens 99.4 H* 09/17/20 20:08: SARS-CoV-2 (PCR) NOT DETECTED 09/17/20 18:35: Urine Color YELLOW, Urine Clarity CLEAR, Urine pH 6.0, Ur Speci fic [place] 1.010, Urine Protein NEGATIVE, Urine Glucose (UA) NEGATIVE, Urine Ketones NEGATIVE, Urine Occult Blood NEGATIVE, Urine Nitrite NEGATIVE, Urine Bilirubin NEGATIVE, Urine Urobilinogen 1 (NORMAL), Ur Leukocyte Esterase NEGATIVE, Ur Microscopic Review NOT INDICATED, Urine Culture Comments NOT INDICATED, Urine Opiates Screen NEGATIVE, Ur Oxycodone Screen NEGATIVE, Urine Methadone Screen NEGATIVE, Ur Propoxyphene Screen NEGATIVE, Ur Barbiturates Screen NEGATIVE, Ur Tricyclics Screen NEGATIVE, Ur Phencyclidine Scrn NEGATIVE, Ur Amphetamine Screen NEGATIVE, U Methamphetamines Scrn NEGATIVE, U Benzodiazepines Scrn NEGATIVE, Urine Cocaine Screen NEGATIVE, U Cannabinoids Screen NEGATIVE 09/17/20 18:01: B-Natriuretic Peptide 2133 H 09/17/20 18:01: PT 13.1 H, INR 1.2 09/17/20 18:01: Lactic Acid 2.2 09/17/20 18:01: Troponin I High Sens 91.9 H* 09/17/20 18:01: Sodium 131 L, Potassium 3.7, Chloride 91 L, Carbon Dioxide 27, Anion Gap 13.0, BUN 17, Creatinine 0.6, Estimated GFR (MDRD) 131, Glucose 128 H, Calcium 7.8 L, Total Bilirubin 0.6, AST 28, ALT 22, Alkaline Phosphatase 133 H, Total Protein 5.8 L, Albumin 2.0 L, Globulin 3.8, Albumin/Globulin Ratio 0.5 L, Lipase 21 L 09/17/20 18:01: WBC 6.3, RBC 4.13 L, Hgb 9.1 L, Hct 31.0 L, MCV 75.1 L, MCH 22.0 L, MCHC 29.4 L, RDW 24.4 H, Plt Count 250, MPV 10.0, Neut # (Auto) 5.6, Lymph # (Auto) 0.3 L, [place] # (Auto) 0.4, Eos # (Auto) 0.0, Baso # (Auto) 0.0, Absolute Nucleated RBC 0.00, Nucleated RBC % 0.0, Manual Slide Review Indicated, Platelet Estimate NORMAL (130-450,000), Platelet Morphology NORMAL APPEARANCE, RBC Morph Micro Appear 1+ MICROCYTOSIS - Diagnosis Diagnosis: 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 I will keep Mr. Castro NPO after midnight and plan for debridement in the AM at 0900. I have discussed the risks and benefits of the procedure with the patient's spouse. Verbal and written consent were obtained.
[2020-09-19 16:45] LABS: HGB - HEMOGLOBIN 8.6 g/dL (14.0-18.0)
[2020-09-19 16:52] LABS: CALCIUM 7.4 mg/dL (8.5-10.3); CREATININE 0.7 mg/dL (0.6-1.2)
[2020-09-19 17:41] LABS: VANCOMYCIN,TROUGH 27.3 ug/mL (10.0-20.0)
[2020-09-19] MEDS ORDERED: SODIUM CHLORIDE 0.9% 500 ML IV ONE (19:01)
[2020-09-19] MEDS: lisinopriL 5 MG TABLET PO SCH (20:48)
[2020-09-20 00:40] LABS: VANCOMYCIN,TROUGH 17.3 ug/mL (10.0-20.0)
[2020-09-20] MEDS: VANCOMYCIN INJ 1 GM, VANCOMYCIN INJ 500 MG in SODIUM CHLORIDE 0.9% 500 ML IV SCH ×2 (01:21→14:35)
[2020-09-20] MEDS: SODIUM CHLORIDE FLUSH 0.9% 10 ML SYRINGE IVP SCH ×3 (01:22→16:22)
[2020-09-20] MEDS: FUROSEMIDE 20 MG/2 ML VIAL IVP SCH ×2 (05:23→14:34)
[2020-09-20] MEDS: PANTOPRAZOLE 40 MG TABLET PO SCH (05:24)
[2020-09-20 05:40] LABS: BASOPHILS % (AUTO) 0.2 %; EOSINOPHILS # (AUTO) 0.2 10^3/uL (0.0-0.7); EOSINOPHILS % (AUTO) 2.6 %; HGB - HEMOGLOBIN 8.5 g/dL (14.0-18.0); LYMPHOCYTES # (AUTO) 0.3 10^3/uL (1.5-3.5); LYMPHOCYTES % (AUTO) 4.9 %; MEAN CORPUSCULAR HEMOGLOBIN 22.4 pg (27.0-31.0); MEAN CORPUSCULAR HGB CONC 30.2 g/dL (32.0-36.0); MEAN CORPUSCULAR VOLUME 73.9 fL (80.0-94.0); MEAN PLATELET VOLUME 9.7 fL (7.4-11.4); MONOCYTES # (AUTO) 0.5 10^3/uL (0.0-1.0); MONOCYTES % (AUTO) 7.7 %; NEUTROPHILS # (AUTO) 5.5 10^3/uL (1.5-6.6); PLT - PLATELET COUNT 210 10^3/uL (130-450); RED CELL DISTRIBUTION WIDTH 23.3 % (12.0-15.0); WHITE BLOOD COUNT 6.5 x10^3/uL (4.8-10.8)
[2020-09-20 05:54] LABS: CALCIUM 7.3 mg/dL (8.5-10.3); CREATININE 0.6 mg/dL (0.6-1.2)
[2020-09-20 06:17] LABS: FOLATE 4.16 ng/mL (5.90 - >24.8)
[2020-09-20 06:19] LABS: PLATELET ESTIMATE, MANUAL NORMAL (130-450,000) (NORMAL); PLATELET MORPHOLOGY NORMAL APPEARANCE (NORMAL)
[2020-09-20] MEDS: METOPROLOL SUCCINATE 25 MG TABLET PO SCH ×2 (08:44→21:11)
[2020-09-20] MEDS: SODIUM CHLORIDE FLUSH 0.9% 10 ML SYRINGE IVP PRN ×2 (08:45→11:04)
[2020-09-20] MEDS ORDERED: BUPIVACAINE 0.5% PF 30 ML VIAL ONE (09:09)
[2020-09-20] MEDS ORDERED: LIDOCAINE 1%-EPI 1:100000 20 ML MDV ONE (09:10)
--- NOTE | 2020-09-20 09:11 | ANESTHESIA ---
Pre-Anesthesia VS, & Labs - Diagnosis Diagnosis Large necrotic ulcer of the left heel due to chronic pressure - Procedure left heel debridement Vital Signs: Temp Pulse Resp BP Pulse Ox 37.4 C 88 16 134/83 H 92 09/20/20 08:04 09/20/20 08:04 09/20/20 08:04 09/20/20 08:04 09/20/20 08:04 Height: 6 ft 1 in Weight (kg): 91.5 kg Body Mass Index: 26.6 BMI Classification: Overweight - NPO >8 hours - Lab Results Current Lab Results: Laboratory Tests 09/20/20 05:20: Vitamin B12 542, Folate 4.16 L 09/20/20 05:20: B-Natriuretic Peptide 2889 H 09/20/20 05:20: Sodium 128 L, Potassium 3.0 L, Chloride 91 L, Carbon Dioxide 28, Anion Gap 9.0, BUN 14, Creatinine 0.6, Estimated GFR (MDRD) 131, Glucose 114 H, Calcium 7.3 L 09/20/20 05:20: WBC 6.5, RBC 3.80 L, Hgb 8.5 L, Hct 28.1 L, MCV 73.9 L, MCH 22.4 L, MCHC 30.2 L, RDW 23.3 H, Plt Count 210, MPV 9.7, Neut # (Auto) 5.5, Lymph # (Auto) 0.3 L, [place] # (Auto) 0.5, Eos # (Auto) 0.2, Baso # (Auto) 0.0, Absolute Nucleated RBC 0.00, Nucleated RBC % 0.0, Manual Slide Review Indicated, WBC Morphology NORMAL APPEARANCE, Platelet Estimate NORMAL (130-450,000), Platelet Morphology NORMAL APPEARANCE, RBC Morph Micro Appear 2+ ANISOCYTOSIS 09/20/20 00:25: Last Dose Date 09/19/20, Last Dose Time 0100, Vancomycin Trough 17.3 09/19/20 16:39: Hgb 8.6 L, Hct 28.2 L 09/19/20 16:39: Sodium 128 L, Potassium 3.2 L, Chloride 91 L, Carbon Dioxide 28, Anion Gap 9.0, BUN 15, Creatinine 0.7, Estimated GFR (MDRD) 110, Glucose 160 H, Calcium 7.4 L 09/19/20 16:39: Last Dose Date 09/19/20, Last Dose Time 1147, Vancomycin Trough 27.3 H* 09/19/20 08:36: Blood Type O POSITIVE, Antibody Screen NEGATIVE, Crossmatch IS Only See Detail 09/19/20 04:45: B-Natriuretic Peptide 2335 H 09/19/20 04:45: Sodium 129 L, Potassium 3.1 L, Chloride 91 L, Carbon Dioxide 28, Anion Gap 10.0, BUN 15, Creatinine 0.6, Estimated GFR (MDRD) 131, Glucose 153 H, Calcium 7.2 L, Magnesium 1.9 09/19/20 04:45: WBC 5.5, RBC 3.42 L, Hgb 7.4 L, Hct 25.4 L, MCV 74.3 L, MCH 21.6 L, MCHC 29.1 L, RDW 24.1 H, Plt Count 229, MPV 10.0, Neut # (Auto) 4.8, Lymph # (Auto) 0.2 L, [place] # (Auto) 0.4, Eos # (Auto) 0.0, Baso # (Auto) 0.0, Absolute Nucleated RBC 0.00, Nucleated RBC % 0.0 09/18/20 05:15: TSH 1.61 09/18/20 05:15: Magnesium 2.0 09/18/20 05:15: B-Natriuretic Peptide 1822 H 09/18/20 05:15: Sodium 131 L, Potassium 3.1 L, Chloride 92 L, Carbon Dioxide 27, Anion Gap 12.0, BUN 16, Creatinine 0.6, Estimated GFR (MDRD) 131, Glucose 109 H, Calcium 7.3 L 09/18/20 05:15: WBC 5.3, RBC 3.65 L, Hgb 8.1 L, Hct 27.0 L, MCV 74.0 L, MCH 22.2 L, MCHC 30.0 L, RDW 24.0 H, Plt Count 209, MPV 9.4, Neut # (Auto) 4.9, Lymph # (Auto) 0.1 L, [place] # (Auto) 0.3, Eos # (Auto) 0.0, Baso # (Auto) 0.0, Absolute Nucleated RBC 0.00, Nucleated RBC % 0.0, Manual Slide Review Indicated, Platelet Estimate NORMAL (130-450,000), Platelet Morphology NORMAL APPEARANCE, RBC Morph Micro Appear 2+ ANISOCYTOSIS 09/18/20 02:25: Troponin I High Sens 114.9 H* 09/17/20 20:30: Troponin I High Sens 99.4 H* 09/17/20 18:35: Urine Opiates Screen NEGATIVE, Ur Oxycodone Screen NEGATIVE, Urine Methadone Screen NEGATIVE, Ur Propoxyphene Screen NEGATIVE, Ur Barbiturates Screen NEGATIVE, Ur Tricyclics Screen NEGATIVE, Ur Phencyclidine Scrn NEGATIVE, Ur Amphetamine Screen NEGATIVE, U Methamphetamines Scrn NEGATIVE, U Benzodiazepines Scrn NEGATIVE, Urine Cocaine Screen NEGATIVE, U Cannabinoids Screen NEGATIVE 09/17/20 18:01: B-Natriuretic Peptide 2133 H 09/17/20 18:01: PT 13.1 H, INR 1.2 09/17/20 18:01: Lactic Acid 2.2 09/17/20 18:01: Troponin I High Sens 91.9 H* 09/17/20 18:01: Sodium 131 L, Potassium 3.7, Chloride 91 L, Carbon Dioxide 27, Anion Gap 13.0, BUN 17, Creatinine 0.6, Estimated GFR (MDRD) 131, Glucose 128 H, Calcium 7.8 L, Total Bilirubin 0.6, AST 28, ALT 22, Alkaline Phosphatase 133 H, Total Protein 5.8 L, Albumin 2.0 L, Globulin 3.8, Albumin/Globulin Ratio 0.5 L, Lipase 21 L 09/17/20 18:01: WBC 6.3, RBC 4.13 L, Hgb 9.1 L, Hct 31.0 L, MCV 75.1 L, MCH 22.0 L, MCHC 29.4 L, RDW 24.4 H, Plt Count 250, MPV 10.0, Neut # (Auto) 5.6, Lymph # (Auto) 0.3 L, [place] # (Auto) 0.4, Eos # (Auto) 0.0, Baso # (Auto) 0.0, Absolute Nucleated RBC 0.00, Nucleated RBC % 0.0, Manual Slide Review Indicated, Platelet Estimate NORMAL (130-450,000), Platelet Morphology NORMAL APPEARANCE, RBC Morph Micro Appear 1+ MICROCYTOSIS Lab results reviewed: Yes Fish Bones: 09/20/20 05:20 09/20/20 05:20 Home Medications and Allergies Home Medications: Ambulatory Orders Ferrous Gluconate 240 mg PO DAILY 09/18/20 Active Medications Acetaminophen (Tylenol) 650 mg PO Q4HR PRN PRN Reason: Pain 1 to 4 Ascorbic Acid (Vitamin C) 500 mg PO DAILY [facility] Last Admin: 09/19/20 10:52 Dose: 500 mg Documented by: Cyanocobalamin (Vitamin B-12) 500 mcg PO DAILY [facility] Last Admin: 09/19/20 10:52 Dose: 500 mcg Documented by: Diphenhydramine HCl (Benadryl) 25 mg PO QPM PRN PRN Reason: Insomnia Ferrous Gluconate (Fergon) 324 mg PO DAILYWM [facility] Last Admin: 09/19/20 10:52 Dose: 324 mg Documented by: Furosemide (Lasix Inj 20mg Vial) 20 mg IVP BIDDIURETIC [facility] Last Admin: 09/20/20 05:23 Dose: 20 mg Documented by: Heparin Sodium (Porcine) () 5,000 unit SUBQ BID [facility] Last Admin: 09/19/20 20:44 Dose: 5,000 unit Documented by: Vancomycin HCl 1 gm/Vancomycin HCl 500 mg/ Sodium Chloride 500 mls @ 250 mls/hr IV Q12H [facility] Potassium Chloride (Potassium Chloride) 10 meq in 100 mls @ 100 mls/hr IV Q1H [facility] Stop: 09/20/20 12:59 Lisinopril (Zestril) 5 mg PO QPM [facility] Last Admin: 09/19/20 20:48 Dose: 5 mg Documented by: Metoprolol Succinate (Toprol Xl) 25 mg PO BID [facility] Last Admin: 09/20/20 08:44 Dose: 25 mg Documented by: Mineral Oil (Cavilon) 1 applic TOP PRN PRN PRN Reason: Skin Care Ondansetron HCl (Zofran Inj) 4 mg IVP Q6HR PRN PRN Reason: Nausea / Vomiting Pantoprazole Sodium (Protonix) 40 mg PO QDAC [facility] Last Admin: 09/20/20 05:24 Dose: 40 mg Documented by: Polyethylene Glycol (Miralax) 17 gm PO DAILY [facility] Potassium Chloride () 40 meq PO DAILYWM [facility] Last Admin: 09/19/20 10:52 Dose: 40 meq Documented by: Sodium Chloride (Normal Saline Flush 0.9%) 10 ml IVP PRN PRN PRN Reason: NEEDED PER PROVIDER ORDERS Last Admin: 09/20/20 08:45 Dose: 20 ml Documented by: Sodium Chloride (Normal Saline Flush 0.9%) 10 ml IVP 0100,0900,1700 [facility] Last Admin: 09/20/20 05:24 Dose: 10 ml Documented by: Spironolactone (Aldactone) 25 mg PO 1200 [facility] Last Admin: 09/19/20 13:13 Dose: 25 mg Documented by: Ferrous Gluconate 240 mg PO DAILY 09/18/20 Allergies/Adverse Reactions: Allergies Allergy/AdvReac Type Severity Reaction Status Date / Time No Known Drug Allergies Allergy Verified 08/05/20 10:40 Anes History & Medical History - Anesthetic History Anesthesia Complications: reports: No previous complications Family history of Anesthesia Complications: Denies Family history of Malignant Hyperthermia: Denies - Medical History Cardiovascular: reports: Congestive heart failure (ef 35-40%), Hypertension, Atrial fibrillation, Arrhythmia, Valve disorder (mild mitral regurg) Pulmonary: reports: None (pt denies) Gastrointestinal: reports: Ulcers (gastric) Urinary: reports: None Neuro: reports: None Musculoskeletal: reports: None Endocrine/Autoimmune: reports: None Blood Disorders: reports: None Skin: reports: None Smoking Status: Never smoker Psychosocial: reports: No issues indicated Other Past Medical History: lymphoma - Surgical History Other Past Surgical History: Bone marrow biopsy Exam General: Alert, Oriented x3, Cooperative, No acute distress Dental: Dentures full Upper, Dentures full Lower Mouth Openin Fingerbreadth Neck Mobility: Normal Mallampati classification: II Respiratory: Lungs clear, Normal breath sounds, No respiratory distress, No accessory muscle use Cardiovascular: Regular rate, Normal S1, Normal S2, No murmurs Plan Anesthesia Type: General (backup), MAC Consent for Procedure(s) Verified and Reviewed: Yes Code Status: Attempt Resuscitation ASA classification: 3-Severe systemic disease Is this case an emergency?: No
[2020-09-20] MEDS ORDERED: KETAMINE 500 MG/10 ML VIAL IVP ONE (09:23)
[2020-09-20] MEDS ORDERED: ONDANSETRON 4 MG/2 ML VIAL IVP ONE (09:23)
[2020-09-20] MEDS ORDERED: DEXAMETHASONE 4 MG/ML VIAL IVP ONE (09:23)
[2020-09-20] MEDS ORDERED: fentaNYL 100 MCG/2 ML VIAL IVP ONE (09:23)
[2020-09-20] MEDS ORDERED: PROPOFOL 200 MG/20 ML VIAL IVP ONE (09:23)
[2020-09-20] MEDS ORDERED: ePHEDrine 50 MG/ML VIAL IVP ONE (09:23)
[2020-09-20] MEDS ORDERED: LIDOCAINE-MPF 2% 5 ML VIAL IM ONE (09:23)
--- NOTE | 2020-09-20 09:44 | OPERATIVE REPORT ---
Operative Report - General Admit Date: 09/17/20 Procedure Date: 09/20/20 Planned Procedure: Debridement of left necrotic heel ulcer Pre-Op Diagnosis: Left heel pressure ulcer with infection and necrosis Procedure Performed: Excisional debridement of left heel ulcer Post Op Diagnosis: Same - Procedure Note Primary Surgeon: Chuy Anesthesia Provider: Deyvi Anesthesia Technique: General LMA Pathology: None Estimated Blood Loss (mL): 5 Indications: Necrotic pressure ulcer left heel Findings: Full thickness necrosis of the skin of the posterior heel - 2 x 4.4 cm Complications: None apparent - Other Other Information/Narrative: After obtaining informed consent, the patient is brought to the operating room on his bed and remained in the supine position. Following successful induction of anesthesia, appropriate padding of all bony prominences, and placement of appropriate monitors, the left heel was prepped and draped in the standard surgical fashion. A timeout was held per scope protocol. All elements of the surgical safety checklist were followed before, during, and after the procedure. The left heel was noted to have a 4.2 x 2 centimeter area of necrosis. This was grasped and removed from the underlying tissue sharply. What remained was a healthy bed of pale but bleeding tissue. The wound was then checked for hemostasis and irrigated with warm saline solution. A dressing of Adaptic and Xeroform was applied. All sponge, needle, and instrument counts were correct at the conclusion of the case. The patient was allowed awaken from anesthesia without difficulty and taken to the postanesthesia care unit in good condition.
[2020-09-20] MEDS ORDERED: LACTATED RINGERS 600 ML IV ONE (10:08)
--- NOTE | 2020-09-20 10:31 | ANESTHESIA POST OP EVALUATION ---
Anesthesia Post Eval - Post Anesthesia Eval Vitals: Last Vital Signs Temp 37.1 C 09/20/20 10:20 Pulse 75 09/20/20 10:20 Resp 14 09/20/20 10:20 BP 103/52 L 09/20/20 10:20 Pulse Ox 97 09/20/20 10:20 CV Function Including HR & BP: positive: Stable Pain Control: positive: Satisfactory Nausea & Vomiting: positive: Negative Mental Status: positive: Baseline Respiratory Status: Airway Patent Hydration Status: Satisfactory Anesthesia Complications: positive: None
[2020-09-20] MEDS ORDERED: MORPHINE 2 MG/ML CARPUJECT IVP PRN (10:32)
[2020-09-20] MEDS ORDERED: fentaNYL 100 MCG/2 ML VIAL IVP PRN (10:32)
[2020-09-20] MEDS ORDERED: METOCLOPRAMIDE 10 MG/2 ML VIAL IVP PRN (10:32)
[2020-09-20] MEDS ORDERED: ePHEDrine 50 MG/ML VIAL IVP PRN (10:32)
[2020-09-20] MEDS ORDERED: ONDANSETRON 4 MG/2 ML VIAL IVP PRN (10:32)
[2020-09-20] MEDS ORDERED: ATROPINE ABBOJECT 1 MG/10 ML SYRINGE IVP PRN (10:32)
[2020-09-20] MEDS ORDERED: HYDROmorphone 0.5 MG/0.5 ML SYRINGE IVP PRN (10:32)
[2020-09-20] MEDS ORDERED: NALOXONE 0.4 MG/ML VIAL IVP PRN (10:32)
--- NOTE | 2020-09-20 10:56 | PROVIDER PROGRESS NOTE ---
Assessment/Plan - Problem List (1) Altered mental status Qualifiers: Altered mental status type: unspecified Qualified Code(s): R41.82 - Altered mental status, unspecified Assessment/Plan: He has slightly improved since the day of admission. He carries on a normal conversation but still his memory is poor. He is no longer agitated like the day he wanted to "sign himself out AMA". We are still waiting for brain MRI, it was not done yesterday, apparently he could not tolerate laying there even after having Haldol. I suspect the main reason for confusion is persistent hyponatremia which is being treated. Another etiology is probably his infection, the heel ulcer, which is also being managed. His Gore catheter has not yet come out because he has needed sedation for having his MRI and then sedation for having his heel debridement today. (2) Acute respiratory failure with hypoxia Assessment/Plan: He still requires 2 L O2 per nasal cannula to maintain saturations over 90%. Presumably the cause is his CHF with newly found cardiomyopathy this admission. We are treating with diuretics. Continue supplemental oxygen, wean down as tolerated. (3) Hyponatremia Assessment/Plan: This is not improving, he has dropped to 128 today. Continue with the free water restriction and total fluid restriction as ordered. Continue with diuretics, may need to add metolazone. Follow BMP daily (4) Anasarca Assessment/Plan: He is down about 1 kg since admission, by I's and O's he is in negative fluid balance about 3 L. Etiology is most likely his new congestive heart failure, in addition to low Albumen IV albumin was given to help with the low albumin level. Continue with fluid restriction. Continue with IV diuretics. (5) Acute combined systolic and diastolic heart failure Assessment/Plan: This is a new diagnosis for him, it was found on Echo done 2 days ago. BNP has been very elevated and not improvin at admission>> 1800>> 2300>> today 2900. He has been started on beta-blockers, loop diuretic, spironolactone, IGOR inhibitor. The doses are staggered because of his "soft" blood pressure. Follow I's and O's and daily weights. His Gore catheter has not yet come out because he has needed sedation for having his MRI and then sedation for having his heel debridement today. (6) Pleural effusion Assessment/Plan: As per CXR (7) Pressure ulcer of heel Assessment/Plan: The culture of the wound from the heel ulcer has grown staph aureus. The sensitivities are still pending. He is getting Vanco iv Today he had deep debridement down to healthy looking skin, done by general surgeon Dr. Vera. Will request wound nurse for follow-up starting (today is Monday and she is not here on the weekend or Monday). Await the sensitivities on this staph aureus to tailor antibx (8) Staph aureus infection Assessment/Plan: As above (9) Anemia Qualifiers: Anemia type: folate deficiency Assessment/Plan: Admission hemoglobin was 9 the next day 8 and when it dropped to 7.4, he got 1 unit of blood transfused. It is then been stable at 8.5. His home dose of ferrous sulfate has been continued. B12 and folate levels were done and he is low and folate. We will replace the Gore. Follow CBC daily (10) Paroxysmal atrial fibrillation with rapid ventricular response Assessment/Plan: He is already on beta-viviana for control of his paroxysmal A. fib rate. His CHADS2 score is 2 or more, and he should be on a DOAC for stroke prophylaxis, however we were awaiting the sharps debridement by general surgery before starting anticoagulation. Debridement is finished. We will check a stool guaic, because of his marked anemia and if neg, will start DOAC. (11) Hypokalemia Assessment/Plan: Undoubtedly caused by his diuresis. Replace. Follow BMP daily (12) Malnutrition Assessment/Plan: There was a 30 pound weight loss over 5 months. The work-up for malignancy is underway. (13) Hypoalbuminemia due to protein-calorie malnutrition Assessment/Plan: As above - Current Meds Current Meds: Current Medications Generic Name Dose Route Start Last Admin Trade Name Freq PRN Reason Stop Dose Admin Ascorbic Acid 500 mg 09/18/20 10:00 09/19/20 10:52 Vitamin C PO 500 mg DAILY [facility]ANI Administration Cyanocobalamin 500 mcg 09/18/20 10:00 09/19/20 10:52 Vitamin B-12 PO 500 mcg DAILY [facility]ANI Administration Ferrous Gluconate 324 mg 09/18/20 10:00 09/19/20 10:52 Fergon PO 324 mg DAILYWM [facility] Administration Furosemide 20 mg 09/18/20 06:00 09/20/20 05:23 Lasix Inj 20mg Vial IVP 20 mg BIDDIURETIC [facility]ANI Administration Heparin Sodium (Porcine) 5,000 unit 09/17/20 21:00 09/19/20 20:44 SUBQ 5,000 unit BID [facility] Administration Lisinopril 5 mg 09/19/20 21:00 09/19/20 20:48 Zestril PO 5 mg QPM [facility] Administration Metoprolol Succinate 25 mg 09/18/20 21:00 09/20/20 08:44 Toprol Xl PO 25 mg BID [facility] Administration Pantoprazole Sodium 40 mg 09/18/20 07:00 09/20/20 05:24 Protonix PO 40 mg QDAC [facility]ANI Administration Potassium Chloride 40 meq 09/19/20 08:29 09/19/20 10:52 PO 40 meq DAILYWM [facility] Administration Sodium Chloride 10 ml 09/17/20 19:56 09/20/20 08:45 Normal Saline Flush 0.9% IVP 20 ml PRN PRN Administration NEEDED PER PROVIDER ORDERS Sodium Chloride 10 ml 09/18/20 01:00 09/20/20 05:24 Normal Saline Flush 0.9% IVP 10 ml 0100,0900,1700 NANI Administration Spironolactone 25 mg 09/19/20 12:00 09/19/20 13:13 Aldactone PO 25 mg 1200 ANNI Administration - Lab Result Fish Bone Diagrams: 09/20/20 05:20 09/20/20 05:20 - Additional Planning My Orders: My Active Orders 09/19/20 12:00 Spironolactone [Aldactone] 25 mg PO 1200 09/19/20 21:00 lisinopriL [Zestril] 5 mg PO QPM 09/20/20 00:01 DIET [NPO except Meds at Midnight] [DIET] 09/20/20 09:00 Potassium Chlor 10 Meq/100 ml [Potassium Chloride] 10 meq in 100 ml IV Q1H polyethylene glycoL 3350 [Miralax] 17 gm PO DAILY 09/20/20 Lunch Dysphagia Mechanically Altered Diet [DIET] 09/20/20 14:00 Vancomycin Inj [Vancomycin] 1 gm Vancomycin Inj 500 mg Sodium Chloride 0.9% [Normal Saline 0.9%] 500 ml IV Q12H Subjective - Subjective Patient Reports: Resting Comfortably, No Complaints Objective Vital Signs: Vital Signs - 24 hr 09/19/20 09/19/20 09/19/20 12:05 13:00 13:05 Temperature 37.4 C 37.3 C 37.3 C Heart Rate 74 66 Heart Rate [ 93 Brachial] Heart Rate [ Monitoring electrodes] Respiratory 16 18 14 Rate Blood Pressure 125/51 L 115/57 L Blood Pressure [Left Brachial artery] Blood Pressure 129/55 L [Right Brachial artery] O2 Saturation 93 09/19/20 09/19/20 09/19/20 13:16 13:52 15:36 Temperature 37.2 C 37.6 C H Heart Rate 75 77 Heart Rate [ Brachial] Heart Rate [ Monitoring electrodes] Respiratory 16 17 16 Rate Blood Pressure 148/75 H 123/62 Blood Pressure [Left Brachial artery] Blood Pressure [Right Brachial artery] O2 Saturation 93 09/19/20 09/19/20 09/19/20 17:00 20:51 23:48 Temperature 37.6 C H 37.5 C 37.5 C Heart Rate Heart Rate [ 76 92 82 Brachial] Heart Rate [ Monitoring electrodes] Respiratory 16 16 18 Rate Blood Pressure Blood Pressure [Left Brachial artery] Blood Pressure 123/62 140/71 H 141/63 H [Right Brachial artery] O2 Saturation 96 94 92 09/20/20 09/20/20 09/20/20 00:41 04:39 08:04 Temperature 37.7 C H 37.4 C Heart Rate Heart Rate [ 79 88 Brachial] Heart Rate [ 84 Monitoring electrodes] Respiratory 18 16 Rate Blood Pressure Blood Pressure [Left Brachial artery] Blood Pressure 141/70 H 147/71 H 134/83 H [Right Brachial artery] O2 Saturation 93 92 09/20/20 09/20/20 09/20/20 10:07 10:15 10:20 Temperature 37.1 C 37.1 C 37.1 C Heart Rate 76 75 75 Heart Rate [ Brachial] Heart Rate [ Monitoring electrodes] Respiratory 12 12 14 Rate Blood Pressure 95/49 L 101/50 L 103/52 L Blood Pressure [Left Brachial artery] Blood Pressure [Right Brachial artery] O2 Saturation 100 100 97 09/20/20 09/20/20 09/20/20 10:25 10:30 10:45 Temperature 37.1 C 37.1 C 37.0 C Heart Rate 70 68 Heart Rate [ 73 Brachial] Heart Rate [ Monitoring electrodes] Respiratory 14 14 16 Rate Blood Pressure 98/57 L 96/74 Blood Pressure 104/65 [Left Brachial artery] Blood Pressure [Right Brachial artery] O2 Saturation 97 98 94 Oxygen O2 Source Nasal cannula I&O (Last 24 Hrs): Intake and Output Totals x24h 09/18/20 09/19/20 09/20/20 23:59 23:59 23:59 Intake Total 1410 2710 500 Output Total 2925 8540 1800 Balance -1515 -240 -1300 General: Alert HEENT: Mucous membr. moist/pink, Other (PAle) Neck: Supple Neuro: Alert, Disoriented Cardiovascular: No murmurs Respiratory: No respiratory distress, Breath sounds nml Abdomen: Soft Extremities: Other (1+ edema. Skin pale, but warm and dry.) - Results Results: Laboratory Results WBC 6.5 x10^3/uL (4.8-10.8) 09/20/20 05:20 RBC 3.80 10^6/uL (4.70-6.10) L 09/20/20 05:20 Hgb 8.5 g/dL (14.0-18.0) L 09/20/20 05:20 Hct 28.1 % (42.0-52.0) L 09/20/20 05:20 MCV 73.9 fL (80.0-94.0) L 09/20/20 05:20 MCH 22.4 pg (27.0-31.0) L 09/20/20 05:20 MCHC 30.2 g/dL (32.0-36.0) L 09/20/20 05:20 RDW 23.3 % (12.0-15.0) H 09/20/20 05:20 Plt Count 210 10^3/uL (130-450) 09/20/20 05:20 MPV 9.7 fL (7.4-11.4) 09/20/20 05:20 Neut # (Auto) 5.5 10^3/uL (1.5-6.6) 09/20/20 05:20 Lymph # (Auto) 0.3 10^3/uL (1.5-3.5) L 09/20/20 05:20 [place] # (Auto) 0.5 10^3/uL (0.0-1.0) 09/20/20 05:20 Eos # (Auto) 0.2 10^3/uL (0.0-0.7) 09/20/20 05:20 Baso # (Auto) 0.0 10^3/uL (0.0-0.1) 09/20/20 05:20 Absolute Nucleated RBC 0.00 x10^3/uL 09/20/20 05:20 Nucleated RBC % 0.0 /100WBC 09/20/20 05:20 Manual Slide Review Indicated 09/20/20 05:20 WBC Morphology NORMAL APPEARANCE (NORMAL) 09/20/20 05:20 Platelet Estimate NORMAL (130-450,000) (NORMAL) 09/20/20 05:20 Platelet Morphology NORMAL APPEARANCE (NORMAL) 09/20/20 05:20 RBC Morph Micro Appear 2+ HYPOCHROMASIA (NORMAL) 1+ OVALOCYTES (NORMAL) 2+ ANISOCYTOSIS (NORMAL) 09/20/20 05:20 RBC Morph Micro Appear 2+ HYPOCHROMASIA (NORMAL) 1+ OVALOCYTES (NORMAL) 2+ ANISOCYTOSIS (NORMAL) 09/20/20 05:20 RBC Morph Micro Appear 2+ HYPOCHROMASIA (NORMAL) 1+ OVALOCYTES (NORMAL) 2+ ANISOCYTOSIS (NORMAL) 09/20/20 05:20 PT 13.1 secs (9.9-12.6) H 09/17/20 18:01 INR 1.2 (0.8-1.2) 09/17/20 18:01 Sodium 128 mmol/L (135-145) L 09/20/20 05:20 Potassium 3.0 mmol/L (3.5-5.0) L 09/20/20 05:20 Chloride 91 mmol/L (101-111) L 09/20/20 05:20 Carbon Dioxide 28 mmol/L (21-32) 09/20/20 05:20 Anion Gap 9.0 (6-13) 09/20/20 05:20 BUN 14 mg/dL (6-20) 09/20/20 05:20 Creatinine 0.6 mg/dL (0.6-1.2) 09/20/20 05:20 Estimated GFR (MDRD) 131 (>89) 09/20/20 05:20 Glucose 114 mg/dL (70-100) H 09/20/20 05:20 Lactic Acid 2.2 mmol/L (0.5-2.2) 09/17/20 18:01 Calcium 7.3 mg/dL (8.5-10.3) L 09/20/20 05:20 Magnesium 1.9 mg/dL (1.7-2.8) 09/19/20 04:45 Total Bilirubin 0.6 mg/dL (0.2-1.0) 09/17/20 18:01 AST 28 IU/L (10-42) 09/17/20 18:01 ALT 22 IU/L (10-60) 09/17/20 18:01 Alkaline Phosphatase 133 IU/L (42-121) H 09/17/20 18:01 Troponin I High Sens 114.9 ng/L (2.3-19.7) H* 09/18/20 02:25 B-Natriuretic Peptide 2889 pg/mL (5-100) H 09/20/20 05:20 Total Protein 5.8 g/dL (6.7-8.2) L 09/17/20 18:01 Albumin 2.0 g/dL (3.2-5.5) L 09/17/20 18:01 Globulin 3.8 g/dL (2.1-4.2) 09/17/20 18:01 Albumin/Globulin Ratio 0.5 (1.0-2.2) L 09/17/20 18: Lipase 21 U/L (22-51) L 09/17/20 18:01 Vitamin B12 542 pg/mL (180-914) 09/20/20 05:20 Folate 4.16 ng/mL (5.90 - >24.8) L 09/20/20 05:20 TSH 1.61 uIU/mL (0.34-5.60) 09/18/20 05:15 Urine Color YELLOW 09/17/20 18:35 Urine Clarity CLEAR (CLEAR) 09/17/20 18:35 Urine pH 6.0 PH (5.0-7.5) 09/17/20 18:35 Ur Specific [place] 1.010 (1.002-1.030) 09/17/20 18:35 Urine Protein NEGATIVE mg/dL (NEGATIVE) 09/17/20 18:35 Urine Glucose (UA) NEGATIVE mg/dL (NEGATIVE) 09/17/20 18:35 Urine Ketones NEGATIVE mg/dL (NEGATIVE) 09/17/20 18:35 Urine Occult Blood NEGATIVE (NEGATIVE) 09/17/20 18:35 Urine Nitrite NEGATIVE (NEGATIVE) 09/17/20 18:35 Urine Bilirubin NEGATIVE (NEGATIVE) 09/17/20 18:35 Urine Urobilinogen 1 (NORMAL) E.U./dL (NORMAL) 09/17/20 18:35 Ur Leukocyte Esterase NEGATIVE (NEGATIVE) 09/17/20 18:35 Ur Microscopic Review NOT INDICATED 09/17/20 18:35 Urine Culture Comments NOT INDICATED 09/17/20 18:35 Nasal Screen MRSA (PCR) NEGATIVE (NEGATIVE) 09/18/20 16:15 Last Dose Date 09/19/20 09/20/20 00:25 Last Dose Time 0100 09/20/20 00:25 Vancomycin Trough 17.3 ug/mL (10.0-20.0) 09/20/20 00:25 Urine Opiates Screen NEGATIVE (NEGATIVE) 09/17/20 18:35 Ur Oxycodone Screen NEGATIVE (NEGATIVE) 09/17/20 18:35 Urine Methadone Screen NEGATIVE (NEGATIVE) 09/17/20 18:35 Ur Propoxyphene Screen NEGATIVE (NEGATIVE) 09/17/20 18:35 Ur Barbiturates Screen NEGATIVE (NEGATIVE) 09/17/20 18:35 Ur Tricyclics Screen NEGATIVE (NEGATIVE) 09/17/20 18:35 Ur Phencyclidine Scrn NEGATIVE (NEGATIVE) 09/17/20 18:35 Ur Amphetamine Screen NEGATIVE (NEGATIVE) 09/17/20 18:35 U Methamphetamines Scrn NEGATIVE (NEGATIVE) 09/17/20 18:35 U Benzodiazepines Scrn NEGATIVE (NEGATIVE) 09/17/20 18:35 Urine Cocaine Screen NEGATIVE (NEGATIVE) 09/17/20 18:35 U Cannabinoids Screen NEGATIVE (NEGATIVE) 09/17/20 18:35 SARS-CoV-2 (PCR) NOT DETECTED 09/17/20 20:08 Blood Type O POSITIVE 09/19/20 08:36 Antibody Screen NEGATIVE 09/19/20 08:36 Crossmatch IS Only See Detail 09/19/20 08:36
[2020-09-20] MEDS ORDERED: LACTATED RINGERS 1,000 ML IV SCH (11:00)
[2020-09-20] MEDS ORDERED: SODIUM CHLORIDE 0.9% 500 ML IV PRN (11:03)
[2020-09-20] MEDS: CYANOCOBALAMIN 500 MCG TABLET PO SCH (11:04)
[2020-09-20] MEDS: polyethylene glycoL 3350 17 GM PACKET PO SCH (11:04)
[2020-09-20] MEDS: POTASSIUM CHLORIDE 20 MEQ/15 ML UDC PO SCH (11:04)
[2020-09-20] MEDS: ASCORBIC ACID CHEW 500 MG TABLET PO SCH (11:04)
[2020-09-20] MEDS: FERROUS GLUCONATE 324 MG TABLET PO SCH (11:04)
[2020-09-20] MEDS: POTASSIUM CHLOR 10 MEQ/100 ML 10 MEQ/100 ML BAG IV SCH ×4 (11:05→14:34)
[2020-09-20] MEDS: SPIRONOLACTONE 25 MG TABLET PO SCH (11:25)
--- NOTE | 2020-09-20 14:11 | PHARMACY PROGRESS NOTE ---
- Therapy Status Vancomycin regimen day #: 3 Therapy status: Trough supratherapeutic Basis for treatment: Empirical Trough goal: 15-20 - TIMUR Risk Risk level for Acute Kidney Injury: Moderate Acute Kidney Injury risk factors: Goal trough >15, Chronic baseline hypertension - Monitoring and Recommendation Clinical response to treatment: I&O Previous 24 hours 09/18/20 09/19/20 09/20/20 23:59 23:59 23:59 Intake Total 1410 2710 940 Output Total 2922 2950 2024 [id number] [phone] Lab Results 09/20/20 09/19/20 09/19/20 05:20 16:39 04:45 BUN 14 15 15 Creatinine 0.6 0.7 0.6 Estimated GFR (MDRD) 131 110 131 09/18/20 09/17/20 05:15 18:01 BUN 16 17 Creatinine 0.6 0.6 Estimated GFR (MDRD) 131 131 Vancomycin Monitoring 09/20/20 09/19/20 00:25 16:39 Vancomycin Trough 17.3 27.3 H* Cultures 09/18/20 16:15 Other - Left Foot Wound Culture - Preliminary Staphylococcus Aureus YEAST 09/19/20 01:50 Blood Blood Culture - Preliminary NO GROWTH AFTER 1 DAY 09/17/20 20:30 Blood Blood Culture - Preliminary NO GROWTH AFTER 2 DAYS 09/17/20 19:40 Blood - Left Arm Blood Culture - Preliminary NO GROWTH AFTER 2 DAYS 09/18/20 15:12 Blood - Left Arm Blood Culture - Preliminary NO GROWTH AFTER 1 DAY Monitoring plan: Daily serum creatinine (WOUND ULCER VANCOMYCIN INTIATED 2GM LOADING DOSE X1 (09/18) MAINTENANCE DOSE: 1500MG Q8H T1/2 = ~7H CRCL: ~126 ML/MIN (ABW); SCR: 0.6 MG/DL TROUGH SCHEDULED FOR 09/19 @ 1600 (BEFORE 4TH DOSE) MRSA PCR PENDING) Next trough due prior to maintenance dose #: 4 Next trough due (date/time): 09/21/2020 @ 1330 Areas for additional monitoring: IV to PO when appropriate, Therapy de- escalation based on culture results Pharmacy recommendation: Decrease dose
[2020-09-20] MEDS: DOCUSATE SODIUM 250 MG CAPSULE PO SCH (14:34)
[2020-09-20] MEDS: SENNA 8.6 MG TABLET PO SCH (14:34)
[2020-09-20] MEDS: HEPARIN 5,000 UNIT/ML VIAL SUBQ SCH ×2 (14:37→21:12)
[2020-09-20] MEDS: lisinopriL 5 MG TABLET PO SCH (21:11)
[2020-09-21] MEDS: VANCOMYCIN INJ 1 GM, VANCOMYCIN INJ 500 MG in SODIUM CHLORIDE 0.9% 500 ML IV SCH ×2 (01:53→15:00)
[2020-09-21] MEDS: SODIUM CHLORIDE FLUSH 0.9% 10 ML SYRINGE IVP SCH ×3 (01:54→17:19)
[2020-09-21] MEDS: ACETAMINOPHEN 325 MG TABLET PO PRN ×3 (04:18→18:22)
[2020-09-21 05:20] LABS: BASOPHILS % (AUTO) 0.2 %; EOSINOPHILS % (AUTO) 0.2 %; LYMPHOCYTES # (AUTO) 0.3 10^3/uL (1.5-3.5); LYMPHOCYTES % (AUTO) 5.9 %; MEAN CORPUSCULAR HEMOGLOBIN 22.2 pg (27.0-31.0); MEAN CORPUSCULAR VOLUME 76.4 fL (80.0-94.0); MEAN PLATELET VOLUME 9.6 fL (7.4-11.4); MONOCYTES # (AUTO) 0.5 10^3/uL (0.0-1.0); MONOCYTES % (AUTO) 8.2 %; NEUTROPHILS # (AUTO) 4.8 10^3/uL (1.5-6.6); PLT - PLATELET COUNT 192 10^3/uL (130-450); RED BLOOD COUNT 4.06 10^6/uL (4.70-6.10); RED CELL DISTRIBUTION WIDTH 23.2 % (12.0-15.0); WHITE BLOOD COUNT 5.6 x10^3/uL (4.8-10.8)
[2020-09-21 05:31] LABS: CALCIUM 7.4 mg/dL (8.5-10.3); CREATININE 0.6 mg/dL (0.6-1.2)
[2020-09-21 05:53] LABS: PLATELET ESTIMATE, MANUAL NORMAL (130-450,000) (NORMAL); PLATELET MORPHOLOGY NORMAL APPEARANCE (NORMAL); RBC MORPHOLOGY (MULTIPLE) 1+ ANISOCYTOSIS (NORMAL)
[2020-09-21] MEDS: FUROSEMIDE 20 MG/2 ML VIAL IVP SCH ×2 (06:28→14:22)
[2020-09-21] MEDS: PANTOPRAZOLE 40 MG TABLET PO SCH (06:28)
[2020-09-21] MEDS ORDERED: POTASSIUM CHLORIDE 20 MEQ TABLET PO ONE (07:18)
[2020-09-21] MEDS: FOLIC ACID 1 MG TABLET PO SCH (08:20)
[2020-09-21] MEDS: FERROUS GLUCONATE 324 MG TABLET PO SCH (08:20)
[2020-09-21] MEDS: METOPROLOL SUCCINATE 25 MG TABLET PO SCH ×2 (08:20→21:17)
[2020-09-21] MEDS: POTASSIUM CHLORIDE 20 MEQ/15 ML UDC PO SCH (08:23)
[2020-09-21] MEDS: DOCUSATE SODIUM 250 MG CAPSULE PO SCH (08:34)
[2020-09-21] MEDS: polyethylene glycoL 3350 17 GM PACKET PO SCH (08:34)
[2020-09-21] MEDS: ASCORBIC ACID CHEW 500 MG TABLET PO SCH (08:34)
[2020-09-21] MEDS: SENNA 8.6 MG TABLET PO SCH (08:34)
[2020-09-21] MEDS: HEPARIN 5,000 UNIT/ML VIAL SUBQ SCH (08:36)
--- NOTE | 2020-09-21 11:29 | PROVIDER PROGRESS NOTE ---
Assessment/Plan - Problem List (1) Altered mental status Qualifiers: Altered mental status type: unspecified Qualified Code(s): R41.82 - Altered mental status, unspecified Assessment/Plan: On Sat he went for brain MRI and because of his agitation on the imaging table, it was not done, thus he did not have his MRI of the brain for evaluation of his persistent confusion until today, late afternoon. He required Haldol premedication for agitation. Results of the brain MRI are still pending The other factors adding to confusion are persistent hyponatremia and his infection. He will hopefully cooperate to start PT and OT tomorrow. he will very likely need a SNF for PT rehab (2) Hyponatremia Assessment/Plan: This has finally started to improve instead of worsening daily. The sodium is now 132. Continue with this current plan of diuretics, free water and fluid restriction. Follow BMP daily (3) Anasarca Assessment/Plan: This is improving with his IV diuresis daily since admission. Follow I's and O's, daily weights, electrolytes, BUN/creatinine, magnesium (4) Acute combined systolic and diastolic heart failure Assessment/Plan: Echo was done earlier this admission which showed both systolic and diastolic heart failure. He has slowly been able to have various medications added and they need to be staggered because of his "soft" blood pressure. Continue beta-viviana, IGOR inhibitor, Lasix and spironolactone. Will transition to p.o. Lasix starting tomorrow. This is apparently a new diagnosis of CHF. He will need outpatient work-up for CAD or other etiologies. (5) Pleural effusion Assessment/Plan: He has been on room air for several days. There has not been a follow-up chest x-ray because this is presumably diuresing down since he has had IV diuretics (6) Pressure ulcer of heel Assessment/Plan: He presented with a deep ulcer of the left heel and was seen in consult by general surgeon, Dr. Duenas. She performed deep debridement in the OR on 08/19/20 for a necrotic pressure ulcer left heel. Dressing was changed to Aquacel (hydrofiber) at the bedside by Dr Vera today. Dr Valerio wants the dressing to stay in place for 4-5 days. Will order wound consult to see starting tomorrow (they are not here on , Monday or Monday; today is Mon), then he will need follow up with wound care center. (7) Staph aureus infection Assessment/Plan: The sensitivities are back today and he has MSSA. There were also growth of a Proteus and another gram-negative. AQwait the final sensitivities of the other 2 bacteria or they may have been contaminants. Will stop the vancomycin. Will start Cefazolin 2 g IV every 8 hours (per pharmacy). (8) Anemia Qualifiers: Anemia type: folate deficiency Assessment/Plan: Folic acid oral replacement has been started Follow CBC daily (9) Paroxysmal atrial fibrillation with rapid ventricular response Assessment/Plan: There has been with noticed paroxysmal A. fib, he is asymptomatic from it. Since he was started on beta-blockers, this has been suppressed. His CAHDs score = 3 (CHF, HTN, Age). He has not yet been started on a DOAC because of the deep debridement surgical intervention that was needed. Will begin Eliquis, now that he is postop day #2. (10) Hypokalemia Assessment/Plan: Related to Lasix use. Replace. Follow BMP daily (11) Malnutrition Assessment/Plan: He had a 30 lb wt loss over 5 mos. It is presumably from cancer (lymphoma). He is still pending to undergo lymph node biopsy to establish the diagnosis. (12) Hypoalbuminemia due to protein-calorie malnutrition Assessment/Plan: As per Hx. Protein shakes are added (13) Acute respiratory failure with hypoxia Assessment/Plan: Resolved - Current Meds Current Meds: Current Medications Generic Name Dose Route Start Last Admin Trade Name Freq PRN Reason Stop Dose Admin Acetaminophen 650 mg 09/17/20 19:56 09/21/20 04:18 Tylenol PO 650 mg Q4HR PRN Administration Pain 1 to 4 Ascorbic Acid 500 mg 09/18/20 10:00 09/21/20 08:34 Vitamin C PO 500 mg DAILY NANI Administration Docusate Sodium 250 - 500 mg 09/20/20 14:00 09/21/20 08:34 Colace 250mg Capsule PO Not Given DAILY NANI Ferrous Gluconate 324 mg 09/18/20 10:00 09/21/20 08:20 Fergon PO 324 mg DAILYWM NANI Administration Folic Acid 1 mg 09/21/20 09:00 09/21/20 08:20 PO 1 mg DAILY NANI Administration Furosemide 20 mg 09/18/20 06:00 09/21/20 06:28 Lasix Inj 20mg Vial IVP 20 mg BIDDIURETIC NANI Administration Heparin Sodium (Porcine) 5,000 unit 09/17/20 21:00 09/21/20 08:36 SUBQ 5,000 unit BID NANI Administration Vancomycin HCl 1 gm/ 500 mls @ 250 mls/hr 09/20/20 14:00 09/21/20 04:12 Vancomycin HCl 500 mg/ Sodium IV Infused Chloride Q12H NANI Infusion Lisinopril 5 mg 09/19/20 21:00 09/20/20 21:11 Zestril PO 5 mg QPM NANI Administration Metoprolol Succinate 25 mg 09/18/20 21:00 09/21/20 08:20 Toprol Xl PO Not Given BID NANI Pantoprazole Sodium 40 mg 09/18/20 07:00 09/21/20 06:28 Protonix PO 40 mg QDAC NANI Administration Polyethylene Glycol 17 gm 09/20/20 09:00 09/21/20 08:34 Miralax PO Not Given DAILY NANI Potassium Chloride 40 meq 09/19/20 08:29 09/21/20 08:23 PO 40 meq DAILYWM NANI Administration Senna 8.6 - 17.2 mg 09/20/20 14:00 09/21/20 08:34 Senokot PO Not Given DAILY NANI Sodium Chloride 10 ml 09/17/20 19:56 09/20/20 11:04 Normal Saline Flush 0.9% IVP 10 ml PRN PRN Administration NEEDED PER PROVIDER ORDERS Sodium Chloride 10 ml 09/18/20 01:00 09/21/20 08:40 Normal Saline Flush 0.9% IVP 10 ml 0100,0900,1700 NANI Administration Spironolactone 25 mg 09/19/20 12:00 09/20/20 11:25 Aldactone PO 25 mg 1200 NANI Administration - Lab Result Fish Bone Diagrams: 09/21/20 05:02 09/21/20 05:02 - Additional Planning My Orders: My Active Orders 09/20/20 Lunch Dysphagia Mechanically Altered Diet [DIET] 09/20/20 13:31 Miscellaenous Nursing Order [RC] QSHIFT 09/20/20 14:00 Docusate Sodium 250Mg Capsule [Colace 250Mg Capsule] 250 - 500 mg PO DAILY Senna [Senokot] 8.6 - 17.2 mg PO DAILY Vancomycin Inj [Vancomycin] 1 gm Vancomycin Inj 500 mg Sodium Chloride 0.9% [Normal Saline 0.9%] 500 ml IV Q12H 09/21/20 Wound Consult MAC [MAC] Routine 09/21/20 08:06 BRAIN WO [MRI] Routine 09/21/20 09:00 Folic Acid 1 mg PO DAILY Subjective - Subjective Patient Reports: Resting Comfortably, No Complaints Objective Vital Signs: Vital Signs - 24 hr 09/20/20 09/20/20 09/20/20 11:30 11:54 12:45 Temperature 37 C 36.4 C L Heart Rate [ 74 65 76 Brachial] Respiratory 16 18 18 Rate Blood Pressure 123/56 L [Left Brachial artery] Blood Pressure 121/56 L 111/61 [Right Brachial artery] O2 Saturation 96 97 98 09/20/20 09/20/20 09/20/20 17:00 20:06 23:46 Temperature 36.7 C 36.6 C 36.5 C Heart Rate [ 74 65 62 Brachial] Respiratory 16 16 18 Rate Blood Pressure [Left Brachial artery] Blood Pressure 138/70 H 115/64 119/63 [Right Brachial artery] O2 Saturation 94 93 94 09/21/20 09/21/20 09/21/20 04:14 07:50 11:08 Temperature 36.4 C L 36.5 C 36.5 C Heart Rate [ 51 L 55 L 60 Brachial] Respiratory 18 18 18 Rate Blood Pressure [Left Brachial artery] Blood Pressure 132/70 H 110/47 L 108/57 L [Right Brachial artery] O2 Saturation 97 92 92 Oxygen O2 Source Room air I&O (Last 24 Hrs): Intake and Output Totals x24h 09/19/20 09/20/20 09/21/20 23:59 23:59 23:59 Intake Total 2710 1960 720 Output Total 3940 2495 1400 Balance -240 -4859 -680 General: Alert, Oriented x3 HEENT: Mucous membr. moist/pink, Other Neck: Supple, No JVD Neuro: Alert, Non Focal, Other (Occasionally confused and with poor memory, does not give a clear answer) Cardiovascular: No murmurs, Other (Irregularly irregular) Respiratory: No respiratory distress Abdomen: Soft Extremities: Other (Trace pedal edema) - Results Results: Laboratory Results WBC 5.6 x10^3/uL (4.8-10.8) 09/21/20 05:02 RBC 4.06 10^6/uL (4.70-6.10) L 09/21/20 05:02 Hgb 9.0 g/dL (14.0-18.0) L 09/21/20 05:02 Hct 31.0 % (42.0-52.0) L 09/21/20 05:02 MCV 76.4 fL (80.0-94.0) L 09/21/20 05:02 MCH 22.2 pg (27.0-31.0) L 09/21/20 05:02 MCHC 29.0 g/dL (32.0-36.0) L 09/21/20 05:02 RDW 23.2 % (12.0-15.0) H 09/21/20 05:02 Plt Count 192 10^3/uL (130-450) 09/21/20 05:02 MPV 9.6 fL (7.4-11.4) 09/21/20 05:02 Neut # (Auto) 4.8 10^3/uL (1.5-6.6) 09/21/20 05:02 Lymph # (Auto) 0.3 10^3/uL (1.5-3.5) L 09/21/20 05:02 [place] # (Auto) 0.5 10^3/uL (0.0-1.0) 09/21/20 05:02 Eos # (Auto) 0.0 10^3/uL (0.0-0.7) 09/21/20 05:02 Baso # (Auto) 0.0 10^3/uL (0.0-0.1) 09/21/20 05:02 Absolute Nucleated RBC 0.00 x10^3/uL 09/21/20 05:02 Nucleated RBC % 0.0 /100WBC 09/21/20 05:02 Manual Slide Review Indicated 09/21/20 05:02 WBC Morphology NORMAL APPEARANCE (NORMAL) 09/20/20 05:20 Platelet Estimate NORMAL (130-450,000) (NORMAL) 09/21/20 05:02 Platelet Morphology NORMAL APPEARANCE (NORMAL) 09/21/20 05:02 RBC Morph Micro Appear 1+ ANISOCYTOSIS (NORMAL) 09/21/20 05:02 PT 13.1 secs (9.9-12.6) H 09/17/20 18:01 INR 1.2 (0.8-1.2) 09/17/20 18:01 Sodium 130 mmol/L (135-145) L 09/21/20 05:02 Potassium 3.4 mmol/L (3.5-5.0) L 09/21/20 05:02 Chloride 93 mmol/L (101-111) L 09/21/20 05:02 Carbon Dioxide 28 mmol/L (21-32) 09/21/20 05:02 Anion Gap 9.0 (6-13) 09/21/20 05:02 BUN 13 mg/dL (6-20) 09/21/20 05:02 Creatinine 0.6 mg/dL (0.6-1.2) 09/21/20 05:02 Estimated GFR (MDRD) 131 (>89) 09/21/20 05:02 Glucose 112 mg/dL (70-100) H 09/21/20 05:02 Lactic Acid 2.2 mmol/L (0.5-2.2) 09/17/20 18:01 Calcium 7.4 mg/dL (8.5-10.3) L 09/21/20 05:02 Magnesium 1.9 mg/dL (1.7-2.8) 09/19/20 04:45 Total Bilirubin 0.6 mg/dL (0.2-1.0) 09/17/20 18:01 AST 28 IU/L (10-42) 09/17/20 18:01 ALT 22 IU/L (10-60) 09/17/20 18:01 Alkaline Phosphatase 133 IU/L (42-121) H 09/17/20 18:01 Troponin I High Sens 114.9 ng/L (2.3-19.7) H* 09/18/20 02:25 B-Natriuretic Peptide 1517 pg/mL (5-100) H 09/21/20 05:02 Total Protein 5.8 g/dL (6.7-8.2) L 09/17/20 18:01 Albumin 2.0 g/dL (3.2-5.5) L 09/17/20 18:01 Globulin 3.8 g/dL (2.1-4.2) 09/17/20 18:01 Albumin/Globulin Ratio 0.5 (1.0-2.2) L 09/17/20 18: Lipase 21 U/L (22-51) L 09/17/20 18: Vitamin B12 542 pg/mL (180-914) 09/20/20 05:20 Folate 4.16 ng/mL (5.90 - >24.8) L 09/20/20 05: TSH 1.61 uIU/mL (0.34-5.60) 09/18/20 05:15 Urine Color YELLOW 09/17/20 18:35 Urine Clarity CLEAR (CLEAR) 09/17/20 18:35 Urine pH 6.0 PH (5.0-7.5) 09/17/20 18:35 Ur Specific [place] 1.010 (1.002-1.030) 09/17/20 18:35 Urine Protein NEGATIVE mg/dL (NEGATIVE) 09/17/20 18:35 Urine Glucose (UA) NEGATIVE mg/dL (NEGATIVE) 09/17/20 18:35 Urine Ketones NEGATIVE mg/dL (NEGATIVE) 09/17/20 18:35 Urine Occult Blood NEGATIVE (NEGATIVE) 09/17/20 18:35 Urine Nitrite NEGATIVE (NEGATIVE) 09/17/20 18:35 Urine Bilirubin NEGATIVE (NEGATIVE) 09/17/20 18:35 Urine Urobilinogen 1 (NORMAL) E.U./dL (NORMAL) 09/17/20 18:35 Ur Leukocyte Esterase NEGATIVE (NEGATIVE) 09/17/20 18:35 Ur Microscopic Review NOT INDICATED 09/17/20 18:35 Urine Culture Comments NOT INDICATED 09/17/20 18:35 Nasal Screen MRSA (PCR) NEGATIVE (NEGATIVE) 09/18/20 16:15 Last Dose Date 09/19/20 09/20/20 00:25 Last Dose Time 0100 09/20/20 00:25 Vancomycin Trough 17.3 ug/mL (10.0-20.0) 09/20/20 00:25 Urine Opiates Screen NEGATIVE (NEGATIVE) 09/17/20 18:35 Ur Oxycodone Screen NEGATIVE (NEGATIVE) 09/17/20 18:35 Urine Methadone Screen NEGATIVE (NEGATIVE) 09/17/20 18:35 Ur Propoxyphene Screen NEGATIVE (NEGATIVE) 09/17/20 18:35 Ur Barbiturates Screen NEGATIVE (NEGATIVE) 09/17/20 18:35 Ur Tricyclics Screen NEGATIVE (NEGATIVE) 09/17/20 18:35 Ur Phencyclidine Scrn NEGATIVE (NEGATIVE) 09/17/20 18:35 Ur Amphetamine Screen NEGATIVE (NEGATIVE) 09/17/20 18:35 U Methamphetamines Scrn NEGATIVE (NEGATIVE) 09/17/20 18:35 U Benzodiazepines Scrn NEGATIVE (NEGATIVE) 09/17/20 18:35 Urine Cocaine Screen NEGATIVE (NEGATIVE) 09/17/20 18:35 U Cannabinoids Screen NEGATIVE (NEGATIVE) 09/17/20 18:35 SARS-CoV-2 (PCR) NOT DETECTED 09/17/20 20:08 Blood Type O POSITIVE 09/19/20 08:36 Antibody Screen NEGATIVE 09/19/20 08:36 Crossmatch IS Only See Detail 09/19/20 08:36
[2020-09-21] MEDS: SPIRONOLACTONE 25 MG TABLET PO SCH (12:26)
[2020-09-21 13:55] LABS: VANCOMYCIN,TROUGH 30.3 ug/mL (10.0-20.0)
--- NOTE | 2020-09-21 15:03 | PROVIDER PROGRESS NOTE ---
Subjective - General Admit Date: 09/17/20 Procedure Date: 09/20/20 Post Op Days: 1 Procedure Performed: Debridement of left heel pressure ulcer - Review of Systems Wound/Incisions: positive: Healing well, Dressing dry and intact Objective - Patient Data Vital Signs: Vital Signs x48h Temp Pulse Resp BP Pulse Ox 09/21/20 11:08 36.5 C 60 18 108/57 L 92 09/21/20 07:50 36.5 C 55 L 18 110/47 L 92 Weight: Weight 09/19/20 09/20/20 09/21/20 23:59 23:59 23:59 Weight (kg) 90.5 kg 91.5 kg 92 kg Intake & Output: Intake and Output Totals x24h 09/19/20 09/20/20 09/21/20 23:59 23:59 23:59 Intake Total 2710 1960 1200 Output Total 2950 3575 1600 Balance -240 -8308 -400 - Lab Results Lab Results: 09/21/20 05:02 09/21/20 05:02 Other Lab Results: Lab Results x24hrs 09/21/20 09/21/20 09/21/20 Range/Units 13:30 05:02 05:02 WBC (4.8-10.8) x10^3/uL RBC (4.70-6.10) 10^6/uL Hgb (14.0-18.0) g/dL Hct (42.0-52.0) % MCV (80.0-94.0) fL MCH (27.0-31.0) pg MCHC (32.0-36.0) g/dL RDW (12.0-15.0) % Plt Count (130-450) 10^3/uL MPV (7.4-11.4) fL Neut # (Auto) (1.5-6.6) 10^3/uL Lymph # (Auto) (1.5-3.5) 10^3/uL [place] # (Auto) (0.0-1.0) 10^3/uL Eos # (Auto) (0.0-0.7) 10^3/uL Baso # (Auto) (0.0-0.1) 10^3/uL Absolute Nucleated RBC x10^3/uL Nucleated RBC % /100WBC Manual Slide Review Platelet Estimate (NORMAL) Platelet Morphology (NORMAL) RBC Morph Micro Appear (NORMAL) Sodium 130 L (135-145) mmol/L Potassium 3.4 L (3.5-5.0) mmol/L Chloride 93 L (101-111) mmol/L Carbon Dioxide 28 (21-32) mmol/L Anion Gap 9.0 (6-13) BUN 13 (6-20) mg/dL Creatinine 0.6 (0.6-1.2) mg/dL Estimated GFR (MDRD) 131 (>89) Glucose 112 H (70-100) mg/dL Calcium 7.4 L (8.5-10.3) mg/dL B-Natriuretic Peptide 1517 H (5-100) pg/mL Last Dose Date UNK Last Dose Time UNK Vancomycin Trough 30.3 H* (10.0-20.0) ug/mL 09/21/20 Range/Units 05:02 WBC 5.6 (4.8-10.8) x10^3/uL RBC 4.06 L (4.70-6.10) 10^6/uL Hgb 9.0 L (14.0-18.0) g/dL Hct 31.0 L (42.0-52.0) % MCV 76.4 L (80.0-94.0) fL MCH 22.2 L (27.0-31.0) pg MCHC 29.0 L (32.0-36.0) g/dL RDW 23.2 H (12.0-15.0) % Plt Count 192 (130-450) 10^3/uL MPV 9.6 (7.4-11.4) fL Neut # (Auto) 4.8 (1.5-6.6) 10^3/uL Lymph # (Auto) 0.3 L (1.5-3.5) 10^3/uL [place] # (Auto) 0.5 (0.0-1.0) 10^3/uL Eos # (Auto) 0.0 (0.0-0.7) 10^3/uL Baso # (Auto) 0.0 (0.0-0.1) 10^3/uL Absolute Nucleated RBC 0.00 x10^3/uL Nucleated RBC % 0.0 /100WBC Manual Slide Review Indicated Platelet Estimate NORMAL (130-450,000) (NORMAL) Platelet Morphology NORMAL APPEARANCE (NORMAL) RBC Morph Micro Appear 1+ ANISOCYTOSIS (NORMAL) Sodium (135-145) mmol/L Potassium (3.5-5.0) mmol/L Chloride (101-111) mmol/L Carbon Dioxide (21-32) mmol/L Anion Gap (6-13) BUN (6-20) mg/dL Creatinine (0.6-1.2) mg/dL Estimated GFR (MDRD) (>89) Glucose (70-100) mg/dL Calcium (8.5-10.3) mg/dL B-Natriuretic Peptide (5-100) pg/mL Last Dose Date Last Dose Time Vancomycin Trough (10.0-20.0) ug/mL - Current Medications Current Medications: Current Medications Generic Name Dose Route Start Last Admin Trade Name Freq PRN Reason Stop Dose Admin Acetaminophen 650 mg 09/17/20 19:56 09/21/20 12:39 Tylenol PO 650 mg Q4HR PRN Administration Pain 1 to 4 Ascorbic Acid 500 mg 09/18/20 10:00 09/21/20 08:34 Vitamin C PO 500 mg DAILY NANI Administration Docusate Sodium 250 - 500 mg 09/20/20 14:00 09/21/20 08:34 Colace 250mg Capsule PO Not Given DAILY NANI Ferrous Gluconate 324 mg 09/18/20 10:00 09/21/20 08:20 Fergon PO 324 mg DAILYWM NANI Administration Folic Acid 1 mg 09/21/20 09:00 09/21/20 08:20 PO 1 mg DAILY NANI Administration Furosemide 20 mg 09/18/20 06:00 09/21/20 14:22 Lasix Inj 20mg Vial IVP 20 mg BIDDIURETIC NANI Administration Heparin Sodium (Porcine) 5,000 unit 09/17/20 21:00 09/21/20 08:36 SUBQ 5,000 unit BID NANI Administration Vancomycin HCl 1 gm/ 500 mls @ 250 mls/hr 09/20/20 14:00 09/21/20 15:00 Vancomycin HCl 500 mg/ Sodium IV Not Given Chloride Q12H NANI Lisinopril 5 mg 09/19/20 21:00 09/20/20 21:11 Zestril PO 5 mg QPM NANI Administration Metoprolol Succinate 25 mg 09/18/20 21:00 09/21/20 08:20 Toprol Xl PO Not Given BID NANI Pantoprazole Sodium 40 mg 09/18/20 07:00 09/21/20 06:28 Protonix PO 40 mg QDAC NANI Administration Polyethylene Glycol 17 gm 09/20/20 09:00 09/21/20 08:34 Miralax PO Not Given DAILY NANI Potassium Chloride 40 meq 09/19/20 08:29 09/21/20 08:23 PO 40 meq DAILYWM NANI Administration Senna 8.6 - 17.2 mg 09/20/20 14:00 09/21/20 08:34 Senokot PO Not Given DAILY NANI Sodium Chloride 10 ml 09/17/20 19:56 09/20/20 11:04 Normal Saline Flush 0.9% IVP 10 ml PRN PRN Administration NEEDED PER PROVIDER ORDERS Sodium Chloride 10 ml 09/18/20 01:00 09/21/20 08:40 Normal Saline Flush 0.9% IVP 10 ml 0100,0900,1700 NANI Administration Spironolactone 25 mg 09/19/20 12:00 09/21/20 12:26 Aldactone PO 25 mg 1200 NANI Administration - Physical Exam Wound/Incisions: positive: Healing well, Dressing dry and intact, No drainage, Other (Base of ulcer is pink and viable with no necrotic tissue. No foul odor.) Impression/Plan - Problem List Problem List: Necrotic pressure ulcer left heel. Dressing was changed to Aquacel (hydrofiber) at the bedside. Tolerated well. This dressing can stay in place for 4-5 days. Follow up with wound care center.
[2020-09-21] MEDS ORDERED: LORazepam 2 MG/ML VIAL IVP PRN ×2 (16:04→16:20)
[2020-09-21] MEDS ORDERED: HALOPERIDOL 5 MG/ML VIAL IVP ONE (16:56)
--- NOTE | 2020-09-21 18:55 | MRI Report ---
PROCEDURE: Brain W/O INDICATIONS: Confusion TECHNIQUE: The patient was claustrophobic and unable to complete the examination. Before the examination was ter minated, the following imaging sequences were obtained: Sagittal T2-weighted FLAIR, and axial diffusion-weighted images, with ADC maps. COMPARISON: Correlation is made with prior head CT, 09/17/2020. FINDINGS: Image quality: Motion artifact is seen. On this limited study, there is brain parenchymal volume loss and chronic small vessel ischemic damico e seen. No findings of acute or subacute infarction are detected. No rhianna hydrocephalus is seen. No extra-axial fluid collections are seen. No significant paranasal s inus disease is seen. IMPRESSION: Highly limited examination, which was terminated early by the patient, secondary to claustrophobia. No findings of acute or subacute infarction are seen. Age-appropriate brain parenchymal volume loss and chronic small vessel ischemic change can be seen. Reviewed by: Alistair Robledo MD on 09/21/2020 5:54 PM [place] Approved by: Alistair Robledo MD on 09/21/2020 5:54 PM [facility] Station ID: [id number]
[2020-09-21] MEDS: lisinopriL 5 MG TABLET PO SCH (21:17)
[2020-09-21] MEDS: ceFAZolin 2 GM in SODIUM CHLORIDE 0.9% 100ML 100 ML IV SCH (21:17)
[2020-09-22 05:55] LABS: BASOPHILS % (AUTO) 0.3 %; HGB - HEMOGLOBIN 10.3 g/dL (14.0-18.0); LYMPHOCYTES # (AUTO) 0.4 10^3/uL (1.5-3.5); LYMPHOCYTES % (AUTO) 5.8 %; MEAN CORPUSCULAR HEMOGLOBIN 22.4 pg (27.0-31.0); MEAN CORPUSCULAR HGB CONC 29.3 g/dL (32.0-36.0); MEAN CORPUSCULAR VOLUME 76.5 fL (80.0-94.0); MONOCYTES # (AUTO) 0.5 10^3/uL (0.0-1.0); MONOCYTES % (AUTO) 7.2 %; NEUTROPHILS # (AUTO) 5.4 10^3/uL (1.5-6.6); NEUTROPHILS % (AUTO) 86.1 %; PLT - PLATELET COUNT 248 10^3/uL (130-450); RED BLOOD COUNT 4.59 10^6/uL (4.70-6.10); RED CELL DISTRIBUTION WIDTH 23.9 % (12.0-15.0); WHITE BLOOD COUNT 6.2 x10^3/uL (4.8-10.8)
[2020-09-22 06:05] LABS: CALCIUM 7.3 mg/dL (8.5-10.3); CREATININE 0.7 mg/dL (0.6-1.2)
[2020-09-22 06:17] LABS: PLATELET ESTIMATE, MANUAL NORMAL (130-450,000) (NORMAL); PLATELET MORPHOLOGY NORMAL APPEARANCE (NORMAL)
[2020-09-22] MEDS: ceFAZolin 2 GM in SODIUM CHLORIDE 0.9% 100ML 100 ML IV SCH (06:30)
[2020-09-22] MEDS: SODIUM CHLORIDE FLUSH 0.9% 10 ML SYRINGE IVP PRN (06:32)
[2020-09-22] MEDS: PANTOPRAZOLE 40 MG TABLET PO SCH (06:32)
[2020-09-22] MEDS: SODIUM CHLORIDE FLUSH 0.9% 10 ML SYRINGE IVP SCH ×3 (06:33→18:24)
[2020-09-22] MEDS: polyethylene glycoL 3350 17 GM PACKET PO SCH (08:45)
[2020-09-22] MEDS: POTASSIUM CHLORIDE 20 MEQ/15 ML UDC PO SCH (08:46)
[2020-09-22] MEDS: ASCORBIC ACID CHEW 500 MG TABLET PO SCH (08:46)
[2020-09-22] MEDS: SENNA 8.6 MG TABLET PO SCH (08:46)
[2020-09-22] MEDS: METOPROLOL SUCCINATE 25 MG TABLET PO SCH ×2 (08:46→20:55)
[2020-09-22] MEDS: FERROUS GLUCONATE 324 MG TABLET PO SCH (08:46)
[2020-09-22] MEDS: APIXABAN 5 MG TABLET PO SCH ×2 (08:46→20:55)
[2020-09-22] MEDS: DOCUSATE SODIUM 250 MG CAPSULE PO SCH (08:46)
[2020-09-22] MEDS: FOLIC ACID 1 MG TABLET PO SCH (08:46)
--- NOTE | 2020-09-22 09:21 | PROVIDER PROGRESS NOTE ---
Subjective - Prog Note Date Prog Note Date: 09/22/20 Prog Note Time: 09:27 - Subjective Pt reports feeling: No change Subjective: he is of the opinion that he is "fine, and I'm going home today". Doesn't remember why he's in the hospital. Can't say if there is anything wrong bc he thinks there isn't. Denies confusion. currently denies cp, sob, abd pain. Current Medications - Current Medications Current Medications: Active Medications Acetaminophen (Tylenol) 650 mg PO Q4HR PRN PRN Reason: Pain 1 to 4 Last Admin: 09/21/20 18:22 Dose: 650 mg Documented by: Apixaban (Eliquis) 5 mg PO BID [facility] Last Admin: 09/22/20 08:46 Dose: 5 mg Documented by: Ascorbic Acid (Vitamin C) 500 mg PO DAILY [facility] Last Admin: 09/22/20 08:46 Dose: 500 mg Documented by: Diphenhydramine HCl (Benadryl) 25 mg PO QPM PRN PRN Reason: Insomnia Docusate Sodium (Colace 250mg Capsule) 250 - 500 mg PO DAILY [facility] Last Admin: 09/22/20 08:46 Dose: 250 mg Documented by: Ferrous Gluconate (Fergon) 324 mg PO DAILYWM [facility] Last Admin: 09/22/20 08:46 Dose: 324 mg Documented by: Folic Acid () 1 mg PO DAILY [facility] Last Admin: 09/22/20 08:46 Dose: 1 mg Documented by: Cefazolin Sodium 2 gm/ Sodium (Chloride) 100 mls @ 200 mls/hr IV Q8H [facility] Last Infusion: 09/22/20 07:00 Dose: Infused Documented by: Lisinopril (Zestril) 5 mg PO QPM [facility] Last Admin: 09/21/20 21:17 Dose: 5 mg Documented by: Metoprolol Succinate (Toprol Xl) 25 mg PO BID [facility] Last Admin: 09/22/20 08:46 Dose: 25 mg Documented by: Mineral Oil (Cavilon) 1 applic TOP PRN PRN PRN Reason: Skin Care Ondansetron HCl (Zofran Inj) 4 mg IVP Q6HR PRN PRN Reason: Nausea / Vomiting Pantoprazole Sodium (Protonix) 40 mg PO QDAC [facility] Last Admin: 09/22/20 06:32 Dose: 40 mg Documented by: Polyethylene Glycol (Miralax) 17 gm PO DAILY [facility] Last Admin: 09/22/20 08:45 Dose: 17 gm Documented by: Potassium Chloride () 40 meq PO DAILYWM [facility] Last Admin: 09/22/20 08:46 Dose: 40 meq Documented by: Senna (Senokot) 8.6 - 17.2 mg PO DAILY [facility] Last Admin: 09/22/20 08:46 Dose: 8.6 mg Documented by: Sodium Chloride (Normal Saline Flush 0.9%) 10 ml IVP PRN PRN PRN Reason: NEEDED PER PROVIDER ORDERS Last Admin: 09/22/20 06:32 Dose: 10 ml Documented by: Sodium Chloride (Normal Saline Flush 0.9%) 10 ml IVP 0100,0900,1700 [facility] Last Admin: 09/22/20 08:47 Dose: 10 ml Documented by: Spironolactone (Aldactone) 25 mg PO 1200 [facility] Last Admin: 09/21/20 12:26 Dose: 25 mg Documented by: Ferrous Gluconate 240 mg PO DAILY 09/18/20 Objective - Vital Signs/Intake & Output Reviewed Vital Signs: Yes Vital Signs: Vital Signs x48h Temp Pulse Resp BP BP Pulse Ox 09/22/20 08:05 37.1 C 76 92 H 131/82 H 09/22/20 04:49 36.6 C 73 138/68 H 94 Intake & Output: Intake & Output 09/19/20 09/20/20 09/21/20 09/22/20 23:59 23:59 23:59 23:59 Intake Total 2710 1960 1740 440 Output Total 2950 3575 2150 350 Balance -240 -1615 -410 90 - Objective General Appearance: positive: No acute distress, Alert, Other (sitting up in bed and has eaten breakfast, and "get this tray off my lap".) Eyes Bilateral: positive: PERRL ENT: positive: No signs of dehydration Neck: positive: No JVD. negative: Stiff neck Respiratory: positive: No respiratory distress. negative: Wheezes, Rales, Rhonchi Cardiovascular: positive: Irregularly irregular, Systolic murmur. negative: Gallop/S4, Friction rub Abdomen: positive: Non-tender, No organomegaly, Nml bowel sounds, No distention Skin: positive: Warm, Dry, Pallor Extremities: positive: Non-tender, Pedal edema (nonpitting) Neurologic/Psychiatric: positive: CN's nml (2-12), Motor nml (but he refused to get out of bed. too weak. insists that he can home this way.), Disoriented to place, Disoriented to time - Lab Results Fish Bones: 09/22/20 05:30 09/22/20 05:30 Other Labs: Lab Results x24hrs 09/22/20 09/22/20 09/22/20 Range/Units 05:30 05:30 05:30 WBC 6.2 (4.8-10.8) x10^3/uL RBC 4.59 L (4.70-6.10) 10^6/uL Hgb 10.3 L (14.0-18.0) g/dL Hct 35.1 L (42.0-52.0) % MCV 76.5 L (80.0-94.0) fL MCH 22.4 L (27.0-31.0) pg MCHC 29.3 L (32.0-36.0) g/dL RDW 23.9 H (12.0-15.0) % Plt Count 248 (130-450) 10^3/uL MPV 9.0 (7.4-11.4) fL Neut # (Auto) 5.4 (1.5-6.6) 10^3/uL Lymph # (Auto) 0.4 L (1.5-3.5) 10^3/uL Burnett # (Auto) 0.5 (0.0-1.0) 10^3/uL Eos # (Auto) 0.0 (0.0-0.7) 10^3/uL Baso # (Auto) 0.0 (0.0-0.1) 10^3/uL Absolute Nucleated RBC 0.00 x10^3/uL Nucleated RBC % 0.0 /100WBC Manual Slide Review Indicated WBC Morphology NORMAL APPEARANCE (NORMAL) Platelet Estimate NORMAL (130-450,000) (NORMAL) Platelet Morphology NORMAL APPEARANCE (NORMAL) RBC Morph Micro Appear 1+ OVALOCYTES (NORMAL) Sodium 131 L (135-145) mmol/L Potassium 4.1 (3.5-5.0) mmol/L Chloride 94 L (101-111) mmol/L Carbon Dioxide 30 (21-32) mmol/L Anion Gap 7.0 (6-13) BUN 16 (6-20) mg/dL Creatinine 0.7 (0.6-1.2) mg/dL Estimated GFR (MDRD) 110 (>89) Glucose 107 H (70-100) mg/dL Calcium 7.3 L (8.5-10.3) mg/dL B-Natriuretic Peptide 1056 H (5-100) pg/mL Last Dose Date Last Dose Time Vancomycin Trough (10.0-20.0) ug/mL 09/21/20 Range/Units 13:30 WBC (4.8-10.8) x10^3/uL RBC (4.70-6.10) 10^6/uL Hgb (14.0-18.0) g/dL Hct (42.0-52.0) % MCV (80.0-94.0) fL MCH (27.0-31.0) pg MCHC (32.0-36.0) g/dL RDW (12.0-15.0) % Plt Count (130-450) 10^3/uL MPV (7.4-11.4) fL Neut # (Auto) (1.5-6.6) 10^3/uL Lymph # (Auto) (1.5-3.5) 10^3/uL Burnett # (Auto) (0.0-1.0) 10^3/uL Eos # (Auto) (0.0-0.7) 10^3/uL Baso # (Auto) (0.0-0.1) 10^3/uL Absolute Nucleated RBC x10^3/uL Nucleated RBC % /100WBC Manual Slide Review WBC Morphology (NORMAL) Platelet Estimate (NORMAL) Platelet Morphology (NORMAL) RBC Morph Micro Appear (NORMAL) Sodium (135-145) mmol/L Potassium (3.5-5.0) mmol/L Chloride (101-111) mmol/L Carbon Dioxide (21-32) mmol/L Anion Gap (6-13) BUN (6-20) mg/dL Creatinine (0.6-1.2) mg/dL Estimated GFR (MDRD) (>89) Glucose (70-100) mg/dL Calcium (8.5-10.3) mg/dL B-Natriuretic Peptide (5-100) pg/mL Last Dose Date UNK Last Dose Time UNK Vancomycin Trough 30.3 H* (10.0-20.0) ug/mL ABX Reporting Has patient been on IV antibiotics over the past 48 hours?: Yes Assessment/Plan - Problem List (1) Altered mental status Impression: [place] to be from hyponatremia, infection. We were finally able to get the MRI yesterday afternoon. It was terminated early because of claustrophobia. No findings of acute or subacute infarction with age-appropriate brain parenchymal volume loss and chronic small vessel ischemic change.He is still not at baseline according to his . But the patient is annoyed, and states that there is "nothing wrong with me". keeps on insisting that he has an appointment to get to. He is refusing to get out of bed. Annoyed at this. But at the same time states he wants to go home. cannot take care of him if he is not getting out of bed. Plan: Work with physical therapy and Occupational Therapy and see if he qualifies for [facility]. I called his primary care provider office. I spoke to the director medical surgical, Marisol, and she described the patient as with mild cognitive deficits. He had an MMSE done on March 18, 2020 and scored a 29 out of 30. From what we are seeing today, he is not a 29 out of 30. (2) Hyponatremia Assessment/Plan: He came in at 131. Went down to 128. Today he is 131. Continue with this current plan of diuretics, free water and fluid restriction. Follow BMP daily (3) Anasarca Assessment/Plan: He was admitted at 89 kg. Maxed at 92 kg on September 21. Today he is 91 kg. This is in spite of a negative balance since September 17 on a daily basis. Yesterday he was -1615 cc. This morning he is -410 so far. 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 He has slowly been able to have various medications added and they need to be staggered because of his "soft" blood pressure. Continue beta-viviana, IGOR inhibitor, Lasix and spironolactone. Will transition to p.o. Lasix starting today. This is apparently a new diagnosis of CHF. He will need outpatient work-up for CAD or other etiologies. (5) Pleural effusion Assessment/Plan: He has been on room air for several days. No change today. There has not been a follow-up chest x-ray because this is presumably diuresing down since he has had IV diuretics (6) Pressure ulcer of heel Assessment/Plan: He presented with a deep ulcer of the left heel and was seen in consult by general surgeon, Dr. Duenas. She performed deep debridement in the OR on 08/19/20 for a necrotic pressure ulcer left heel. Dressing was changed to Aquacel (hydrofiber) at the bedside by Dr Vera 09/21. Dr Valerio wants the dressing to stay in place for 4-5 days. Will order wound consult to see starting today (they are not here on Monday, Monday or Monday), But wound consult states that he was just seen by Dr. Duenas yesterday. She does not want any dressing changes for another 4 to 5 days so they will defer to outpatient management. We will continue wound dressing change orders at the [facility] facility he goes to. (7) Staph aureus infection (heel ulcer) Assessment/Plan: Blood cultures on September 17 and September 18 and September 19 are all no growth. Wound culture shows staph aureus and yeast. The sensitivities are back 09/21 and he has MSSA. Vancomycin stopped September 21. He also has DIP thyroid gram-positive bacilli. 3+ growth. No further work-up performed for this organism. Previous progress notes state that this is Proteus. Lab says this is not. Plan:Started on cefazolin 2 g every 8 hours per pharmacy recommendations. Continue same. (8) Anemia Qualifiers: Anemia type: folate deficiency Assessment/Plan: Hemoglobin dropped to 7.4 from the admission hemoglobin of 9.1. Transfuse 1 unit. Hemoglobin went up to 8.5. On folate supplementation and hemoglobin is greater than 10 today. Follow CBC daily (9) Paroxysmal atrial fibrillation with rapid ventricular response Assessment/Plan: There has been with noticed paroxysmal A. fib, he is asymptomatic from it. Since he was started on beta-blockers, this has been suppressed. His CAHDs score = 3 (CHF, HTN, Age). He was initially not started on a DOAC because of the deep debridement surgical intervention that was needed. Started on Eliquis postop day #2. (10) Hypokalemia Assessment/Plan: Related to Lasix use. Replace. Follow BMP daily (11) Malnutrition Assessment/Plan: He had a 30 lb wt loss over 5 mos. It is presumably from cancer (lymphoma). He is still pending to undergo lymph node biopsy to establish the diagnosis. (12) Hypoalbuminemia due to protein-calorie malnutrition Assessment/Plan: As per Hx. Protein shakes are added (13) Acute respiratory failure with hypoxia Assessment/Plan: Resolved Qualifiers: Qualified Code(s): R41.82 - Altered mental status, unspecified
[2020-09-22] MEDS: cephALEXin 250 MG CAPSULE PO SCH ×2 (11:41→18:24)
[2020-09-22] MEDS: SPIRONOLACTONE 25 MG TABLET PO SCH (11:41)
[2020-09-22] MEDS: lisinopriL 5 MG TABLET PO SCH (20:55)
[2020-09-23] MEDS: cephALEXin 250 MG CAPSULE PO SCH ×4 (00:14→18:29)
[2020-09-23] MEDS: SODIUM CHLORIDE FLUSH 0.9% 10 ML SYRINGE IVP SCH ×3 (00:14→16:49)
[2020-09-23] MEDS: PANTOPRAZOLE 40 MG TABLET PO SCH (06:30)
[2020-09-23] MEDS: FOLIC ACID 1 MG TABLET PO SCH (08:02)
[2020-09-23] MEDS: DOCUSATE SODIUM 250 MG CAPSULE PO SCH (08:02)
[2020-09-23] MEDS: ASCORBIC ACID CHEW 500 MG TABLET PO SCH (08:02)
[2020-09-23] MEDS: polyethylene glycoL 3350 17 GM PACKET PO SCH (08:02)
[2020-09-23] MEDS: APIXABAN 5 MG TABLET PO SCH ×2 (08:03→20:56)
[2020-09-23] MEDS: FERROUS GLUCONATE 324 MG TABLET PO SCH (08:03)
[2020-09-23] MEDS: POTASSIUM CHLORIDE 20 MEQ/15 ML UDC PO SCH (08:03)
[2020-09-23] MEDS: METOPROLOL SUCCINATE 25 MG TABLET PO SCH ×2 (08:03→20:56)
[2020-09-23] MEDS: SENNA 8.6 MG TABLET PO SCH (08:03)
[2020-09-23] MEDS: SPIRONOLACTONE 25 MG TABLET PO SCH (11:48)
--- NOTE | 2020-09-23 13:45 | PROVIDER PROGRESS NOTE ---
Subjective - Prog Note Date Prog Note Date: 09/23/20 Prog Note Time: 15:52 - Subjective Subjective: Long talk with . In discussing his deterioration, is actually been going on for probably over a year. She initially noticed that his memory issues, and he was getting more more irritated with things. He is always been a stubborn person but that stubbornness seem to be getting more irrational. Please see advance care conversation under separate dictation. He still thinks he wants to go home. But he is not working with physical therapy and refused to stand up yesterday. He has been accepted at [facility], but authorization has to go through and asked that she may not be able to leave till tomorrow. Current Medications - Current Medications Current Medications: Active Medications Acetaminophen (Tylenol) 650 mg PO Q4HR PRN PRN Reason: Pain 1 to 4 Last Admin: 09/21/20 18:22 Dose: 650 mg Documented by: Apixaban (Eliquis) 5 mg PO BID [facility] Last Admin: 09/23/20 08:03 Dose: 5 mg Documented by: Ascorbic Acid (Vitamin C) 500 mg PO DAILY [facility] Last Admin: 09/23/20 08:02 Dose: 500 mg Documented by: Cephalexin (Keflex) 500 mg PO Q6HR [facility] Last Admin: 09/23/20 11:48 Dose: 500 mg Documented by: Diphenhydramine HCl (Benadryl) 25 mg PO QPM PRN PRN Reason: Insomnia Ferrous Gluconate (Fergon) 324 mg PO DAILYWM [facility] Last Admin: 09/23/20 08:03 Dose: 324 mg Documented by: Folic Acid () 1 mg PO DAILY [facility] Last Admin: 09/23/20 08:02 Dose: 1 mg Documented by: Lisinopril (Zestril) 5 mg PO QPM [facility] Last Admin: 09/22/20 20:55 Dose: 5 mg Documented by: Metoprolol Succinate (Toprol Xl) 25 mg PO BID [facility] Last Admin: 09/23/20 08:03 Dose: 25 mg Documented by: Mineral Oil (Cavilon) 1 applic TOP PRN PRN PRN Reason: Skin Care Multi-Ingredient Ointment (Zinc Oxide) 1 applic TOP PRN PRN PRN Reason: Skin Care Last Admin: 09/23/20 15:11 Dose: 1 applic Documented by: Ondansetron HCl (Zofran Inj) 4 mg IVP Q6HR PRN PRN Reason: Nausea / Vomiting Pantoprazole Sodium (Protonix) 40 mg PO QDAC [facility] Last Admin: 09/23/20 06:30 Dose: 40 mg Documented by: Polyethylene Glycol (Miralax) 17 gm PO DAILY [facility] Last Admin: 09/23/20 08:02 Dose: 17 gm Documented by: Potassium Chloride () 40 meq PO DAILYWM [facility] Last Admin: 09/23/20 08:03 Dose: 40 meq Documented by: Sodium Chloride (Normal Saline Flush 0.9%) 10 ml IVP PRN PRN PRN Reason: NEEDED PER PROVIDER ORDERS Last Admin: 09/22/20 06:32 Dose: 10 ml Documented by: Sodium Chloride (Normal Saline Flush 0.9%) 10 ml IVP 0100,0900,1700 [facility] Last Admin: 09/23/20 08:03 Dose: 10 ml Documented by: Spironolactone (Aldactone) 25 mg PO 1200 [facility] Last Admin: 09/23/20 11:48 Dose: 25 mg Documented by: Ferrous Gluconate 240 mg PO DAILY 09/18/20 Objective - Vital Signs/Intake & Output Reviewed Vital Signs: Yes Vital Signs: Vital Signs x48h Temp Pulse Resp BP BP Pulse Ox 09/23/20 11:46 80 19 125/70 100 09/23/20 07:56 36.9 C 73 18 126/65 98 Intake & Output: Intake & Output 09/20/20 09/21/20 09/22/20 09/23/20 23:59 23:59 23:59 23:59 Intake Total 1960 1740 1420 495 Output Total 3575 2150 700 Balance -1615 -410 720 495 - Objective General Appearance: positive: Alert, Other (Disoriented. Alertness varies. Sometimes he is in bed asleep, is not getting out of bed, and sometimes he is watching TV.) Eyes Bilateral: positive: PERRL ENT: positive: Pharynx nml Neck: negative: No JVD, Stiff neck Respiratory: positive: No respiratory distress. negative: Wheezes, Rales, Rhonchi Cardiovascular: positive: Regular rate & rhythm, Systolic murmur. negative: Gallop/S4, Friction rub Abdomen: positive: Non-tender, No organomegaly, Nml bowel sounds, No distention Skin: positive: Warm, Dry, Pallor Extremities: positive: Non-tender, Pedal edema Neurologic/Psychiatric: positive: CN's nml (2-12), Motor nml (He does not have focal deficits, and we cannot tell if he is refusing to get up past to do with weakness, but is difficult to assess. He does follow commands and is using arms and legs appropriately without focal deficit.), Disoriented to place, Disoriented to time - Lab Results Fish Bones: 09/22/20 05:30 09/22/20 05:30 Assessment/Plan - Problem List (1) Altered mental status Impression: [place] to be from hyponatremia, infection superimposed on some type of dementia. We were finally able to get the MRI 09/21. It was terminated early because of claustrophobia. No findings of acute or subacute infarction with age- appropriate brain parenchymal volume loss and chronic small vessel ischemic change.He is still not at baseline according to his . But the patient is annoyed, and states that there is "nothing wrong with me". keeps on insisting that he has an appointment to get to. He is refusing to get out of bed. Annoyed at this. But at the same time states he wants to go home. cannot take care of him if he is not getting out of bed. Plan: 1. Transfer to group home facility when authorization done. 2. Continue to work with physical therapy and Occupational Therapy. 3. Patient appears to had a sharp cognitive decline for over a year now. (2) Hyponatremia Assessment/Plan: He came in at 131. Went down to 128. 09/22 he was 131. Continue with this current plan of diuretics, free water and fluid restriction. No BMP today. will check tomorrow before dc. (3) Anasarca Assessment/Plan: He was admitted at 89 kg. Maxed at 92 kg on September 21. Today he is 90 kg. This is in spite of a negative balance since September 17 on a daily basis. 09/21 he was -1615 cc. Yesterday +720. 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 He has slowly been able to have various medications added and they need to be staggered because of his "soft" blood pressure. Continue beta-viviana, IGOR inhibitor, Lasix and spironolactone. Transitioned to p.o. Lasix 09/22. This is apparently a new diagnosis of CHF. He will need outpatient work-up for CAD or other etiologies. (5) Pleural effusion Assessment/Plan: He has been on room air for several days. No change today. There has not been a follow-up chest x-ray because this is presumably diuresing down since he has had IV diuretics (6) Pressure ulcer of heel Assessment/Plan: He presented with a deep ulcer of the left heel and was seen in consult by general surgeon, Dr. Duenas. She performed deep debridement in the OR on 08/19/20 for a necrotic pressure ulcer left heel. Dressing was changed to Aquacel (hydrofiber) at the bedside by Dr Vera 09/21. Dr Valerio wants the dressing to stay in place for 4-5 days. Will order wound consult to see starting 09/22 (they are not here on Monday, Monday or Monday), But wound consult states that he was just seen by Dr. Duenas yesterday. She does not want any dressing changes for another 4 to 5 days so they will defer to outpatient management. We will continue wound dressing change orders at the group home facility he goes to. (7) Staph aureus infection (heel ulcer) Assessment/Plan: Blood cultures on September 17 and September 18 and September 19 are all no growth. Wound culture shows staph aureus and yeast. The sensitivities are back 09/21 and he has MSSA. Vancomycin stopped September 21. He also has DIP thyroid gram-positive bacilli. 3+ growth. No further work-up performed for this organism. Previous progress notes state that this is Proteus. Lab says this is not. Plan:Started on cefazolin 2 g every 8 hours per pharmacy recommendations but with no fever, nml WBC I changed to oral abx Keflex yesterday afternoon. (8) Anemia Qualifiers: Anemia type: folate deficiency Assessment/Plan: Hemoglobin dropped to 7.4 from the admission hemoglobin of 9.1. Transfuse 1 unit. Hemoglobin went up to 8.5. On folate supplementation and hemoglobin is 10.3 on 09/22. Fecal occult blood is negative. states that he has a colonoscopy and endoscopy from . He had a gastric ulcer for which she takes proton pump inhibitor twice a day. will stop following CBC daily. (9) Paroxysmal atrial fibrillation with rapid ventricular response Assessment/Plan: There has been with noticed paroxysmal A. fib, he is asymptomatic from it. Since he was started on beta-blockers, this has been suppressed. His CAHDs score = 3 (CHF, HTN, Age). He was initially not started on a DOAC because of the deep debridement surgical intervention that was needed. Started on Eliquis postop day #2. (10) Hypokalemia Assessment/Plan: Related to Lasix use. Replace. Qualifiers: Qualified Code(s): R41.82 - Altered mental status, unspecified
[2020-09-23] MEDS: ZINC OXIDE 20% OINT 30 GM TUBE TOP PRN (15:11)
[2020-09-23] MEDS: lisinopriL 5 MG TABLET PO SCH (20:56)
[2020-09-24] MEDS: SODIUM CHLORIDE FLUSH 0.9% 10 ML SYRINGE IVP SCH ×3 (01:21→16:00)
[2020-09-24] MEDS: cephALEXin 250 MG CAPSULE PO SCH ×4 (01:21→17:02)
[2020-09-24 05:01] LABS: CALCIUM 7.5 mg/dL (8.5-10.3); CREATININE 0.6 mg/dL (0.6-1.2)
[2020-09-24] MEDS: PANTOPRAZOLE 40 MG TABLET PO SCH (06:39)
[2020-09-24] MEDS: polyethylene glycoL 3350 17 GM PACKET PO SCH (08:19)
[2020-09-24] MEDS: APIXABAN 5 MG TABLET PO SCH ×2 (08:19→21:51)
[2020-09-24] MEDS: METOPROLOL SUCCINATE 25 MG TABLET PO SCH ×2 (08:19→21:52)
[2020-09-24] MEDS: FOLIC ACID 1 MG TABLET PO SCH (08:19)
[2020-09-24] MEDS: ASCORBIC ACID CHEW 500 MG TABLET PO SCH (08:19)
[2020-09-24] MEDS: POTASSIUM CHLORIDE 20 MEQ/15 ML UDC PO SCH (08:19)
[2020-09-24] MEDS: FERROUS GLUCONATE 324 MG TABLET PO SCH (08:20)
[2020-09-24] MEDS: ZINC OXIDE 20% OINT 30 GM TUBE TOP PRN ×2 (10:10→14:10)
[2020-09-24] MEDS: MIN OIL/DIMETHICON/COCONUT OIL 92 GM TUBE TOP PRN ×2 (10:10→14:10)
[2020-09-24] MEDS: SPIRONOLACTONE 25 MG TABLET PO SCH (11:40)
--- NOTE | 2020-09-24 18:32 | PROVIDER PROGRESS NOTE ---
Subjective - Prog Note Date Prog Note Date: 09/24/20 Prog Note Time: 18:36 - Subjective Subjective: He is very tired. This morning he just appeared very gaunt, cachectic, sleepy. But woke easily to my voice. Was cooperative with my physical exam. Still confused about where he is half the time. Not eating very much. Current Medications - Current Medications Current Medications: Active Medications Acetaminophen (Tylenol) 650 mg PO Q4HR PRN PRN Reason: Pain 1 to 4 Last Admin: 09/21/20 18:22 Dose: 650 mg Documented by: Apixaban (Eliquis) 5 mg PO BID [facility] Last Admin: 09/24/20 08:19 Dose: 5 mg Documented by: Ascorbic Acid (Vitamin C) 500 mg PO DAILY [facility] Last Admin: 09/24/20 08:19 Dose: 500 mg Documented by: Cephalexin (Keflex) 500 mg PO Q6HR [facility] Last Admin: 09/24/20 17:02 Dose: 500 mg Documented by: Diphenhydramine HCl (Benadryl) 25 mg PO QPM PRN PRN Reason: Insomnia Ferrous Gluconate (Fergon) 324 mg PO DAILYWM [facility] Last Admin: 09/24/20 08:20 Dose: 324 mg Documented by: Folic Acid () 1 mg PO DAILY [facility] Last Admin: 09/24/20 08:19 Dose: 1 mg Documented by: Lisinopril (Zestril) 5 mg PO QPM [facility] Last Admin: 09/23/20 20:56 Dose: 5 mg Documented by: Metoprolol Succinate (Toprol Xl) 25 mg PO BID [facility] Last Admin: 09/24/20 08:19 Dose: 25 mg Documented by: Mineral Oil (Cavilon) 1 applic TOP PRN PRN PRN Reason: Skin Care Last Admin: 09/24/20 14:10 Dose: 1 applic Documented by: Multi-Ingredient Ointment (Zinc Oxide) 1 applic TOP PRN PRN PRN Reason: Skin Care Last Admin: 09/24/20 14:10 Dose: 1 applic Documented by: Ondansetron HCl (Zofran Inj) 4 mg IVP Q6HR PRN PRN Reason: Nausea / Vomiting Pantoprazole Sodium (Protonix) 40 mg PO QDAC [facility] Last Admin: 09/24/20 06:39 Dose: 40 mg Documented by: Polyethylene Glycol (Miralax) 17 gm PO DAILY [facility] Last Admin: 09/24/20 08:19 Dose: 17 gm Documented by: Potassium Chloride () 40 meq PO DAILYWM [facility] Last Admin: 09/24/20 08:19 Dose: 40 meq Documented by: Sodium Chloride (Normal Saline Flush 0.9%) 10 ml IVP PRN PRN PRN Reason: NEEDED PER PROVIDER ORDERS Last Admin: 09/22/20 06:32 Dose: 10 ml Documented by: Sodium Chloride (Normal Saline Flush 0.9%) 10 ml IVP 0100,0900,1700 [facility] Last Admin: 09/24/20 16:00 Dose: 10 ml Documented by: Spironolactone (Aldactone) 25 mg PO 1200 [facility] Last Admin: 09/24/20 11:40 Dose: 25 mg Documented by: Ferrous Gluconate 240 mg PO DAILY 09/18/20 Objective - Vital Signs/Intake & Output Reviewed Vital Signs: Yes Vital Signs: Vital Signs x48h Temp Pulse Resp BP BP Pulse Ox 09/24/20 15:57 37.6 C H 75 16 103/53 L 96 09/24/20 13:00 36.9 C 72 16 120/54 L 94 Intake & Output: Intake & Output 09/21/20 09/22/20 09/23/20 09/24/20 23:59 23:59 23:59 23:59 Intake Total 1740 1420 795 270 Output Total 2150 700 275 Balance -410 720 520 270 - Objective General Appearance: positive: No acute distress, Alert (But alternates with being very sleepy), Other (Bilateral temporal wasting, got cheekbones, rib cage visible in the face of anasarca that has improved. But still with edema of the legs.) Eyes Bilateral: positive: PERRL, EOMI ENT: positive: No signs of dehydration Neck: positive: No JVD Respiratory: positive: No respiratory distress, Other (Diminished lung sounds at the bases). negative: Wheezes, Rales, Rhonchi Cardiovascular: positive: Regular rate & rhythm, Systolic murmur. negative: Gallop/S4, Friction rub Abdomen: positive: No organomegaly, Nml bowel sounds, No distention Skin: positive: Warm, Dry, Pallor, Other (Heel ulcer covered with a bandage) Extremities: positive: Full ROM, Pedal edema Neurologic/Psychiatric: positive: CN's nml (2-12), Disoriented to place, Disoriented to time. negative: Motor nml (Diffuse generalized weakness) - Lab Results Fish Bones: 09/22/20 05:30 09/24/20 04:35 Other Labs: Lab Results x24hrs 09/24/20 Range/Units 04:35 Sodium 133 L (135-145) mmol/L Potassium 3.7 (3.5-5.0) mmol/L Chloride 97 L (101-111) mmol/L Carbon Dioxide 28 (21-32) mmol/L Anion Gap 8.0 (6-13) BUN 19 (6-20) mg/dL Creatinine 0.6 (0.6-1.2) mg/dL Estimated GFR (MDRD) 131 (>89) Glucose 104 H (70-100) mg/dL Calcium 7.5 L (8.5-10.3) mg/dL ABX Reporting Has patient been on IV antibiotics over the past 48 hours?: No Assessment/Plan - Problem List (1) Altered mental status Impression: [place] to be from hyponatremia, infection superimposed on some type of dementia. We were finally able to get the MRI 09/21. It was terminated early because of claustrophobia. No findings of acute or subacute infarction with age- appropriate brain parenchymal volume loss and chronic small vessel ischemic c hange.He is still not at baseline according to his . But the patient is annoyed, and states that there is "nothing wrong with me". keeps on insisting that he has an appointment to get to. In discussing his case with his , she is clearly feels that there was a change in his status starting over a year ago. She noticed that he was having word finding problems in the fall 2018. By spring 2019 she had them evaluated by primary care provider. That is when Dr. Randall noted a Mini-Mental Status exam of 29 out of 30. The patient continued to have progressive loss of memory. Eventually diagnosed with this lymphadenopathy and possible lymphoma. He has not been eating, taking care of himself. He has been very resistant to interference. At least does what he calls it when he is taken to doctors offices. While she does take him to his doctor appointments, she does not always accompany him in the visits and she is come to regret that. Many times he has told the provider that there is nothing wrong with him and he leaves the office with no work-up. While he has improved from his initial obtundation and is more alert, more talkative, he still has moderate cognitive delay. He does not know what day it is. He symptoms forgets he is in the hospital and thinks he is somewhere else and wants to go home. He is very weak, deconditioned. is wondering if he will ever make it to get his lymphoma work-up with a biopsy. And even if they do make the diagnosis will he be able to do treatment because of his weakened status. Plan: 1. Palliative care consultation called for. 2. Transfer to alf facility when authorization done.He has been medically stable since September 23. correction facility has accepted him. We are just waiting for insurance authorization. 3. Continue to work with physical therapy and Occupational Therapy. 4. Patient appears to had a sharp cognitive decline for over a year now. (2) Hyponatremia Assessment/Plan: He came in at 131. Went down to 128. 09/22 he was 131>>133 today. Continue with this current plan of diuretics, free water and fluid restriction. No BMP today. (3) Anasarca Assessment/Plan: He was admitted at 89 kg. Maxed at 92 kg on September 21. Today he is 92 kg. He has been only on spironolactone since September 21. At that time Lasix was discontinued. Plan: continue diuresis But will add Lasix one-time dose (4) Acute combined systolic and diastolic heart failure Assessment/Plan: Echo was done earlier this admission which showed both systolic and diastolic heart failure. He has slowly been able to have various medications added and they need to be staggered because of his "soft" blood pressure. Continue beta-viviana, IGOR inhibitor, Lasix and spironolactone. Transitioned to p.o. Lasix 09/22. This is apparently a new diagnosis of CHF. He will need outpatient work-up for CAD or other etiologies. (5) Pleural effusion Assessment/Plan: He has been on room air for several days. No change today. There has not been a follow-up chest x-ray because this is presumably diuresing down since he has had IV diuretics (6) Pressure ulcer of heel Assessment/Plan: He presented with a deep ulcer of the left heel and was seen in consult by general surgeon, Dr. Duenas. She performed deep debridement in the OR on 08/19/20 for a necrotic pressure ulcer left heel. Dressing was changed to Aquacel (hydrofiber) at the bedside by Dr Vera 09/21. Dr Valerio wants the dressing to stay in place for 4-5 days. Will order wound consult to see starting 09/22 (they are not here on Monday, Monday or Monday), But wound consult states that he was just seen by Dr. Duenas yesterday. She does not want any dressing changes for another 4 to 5 days so they will defer to outpatient management. We will continue wound dressing change orders at the alf facility he goes to. (7) Staph aureus infection (heel ulcer) Assessment/Plan: Blood cultures on September 17 and September 18 and September 19 are all no growth. Wound culture shows staph aureus and yeast. The sensitivities are back 09/21 and he has MSSA. Vancomycin stopped September 21. He also has DIP thyroid gram-positive bacilli. 3+ growth. No further work-up performed for this organism. Previous progress notes state that this is Proteus. Lab says this is not. Plan:Started on cefazolin 2 g every 8 hours per pharmacy recommendations but with no fever, nml WBC I changed to oral abx Keflex 09/22 (8) Anemia Qualifiers: Anemia type: folate deficiency Assessment/Plan: Hemoglobin dropped to 7.4 from the admission hemoglobin of 9.1. Transfuse 1 unit. Hemoglobin went up to 8.5. On folate supplementation and hemoglobin is 10.3 on 09/22. Fecal occult blood is negative. states that he has a colonoscopy and endoscopy from [facility]. He had a gastric ulcer for which she takes proton pump inhibitor twice a day. will stop following CBC daily. (9) Paroxysmal atrial fibrillation with rapid ventricular response Assessment/Plan: There has been with noticed paroxysmal A. fib, he is asymptomatic from it. Since he was started on beta-blockers, this has been suppressed. His CAHDs score = 3 (CHF, HTN, Age). He was initially not started on a DOAC because of the deep debridement surgical intervention that was needed. Started on Eliquis postop day #2. (10) Hypokalemia Assessment/Plan: Related to Lasix use. Replace. Qualifiers: Qualified Code(s): R41.82 - Altered mental status, unspecified
[2020-09-24] MEDS: lisinopriL 5 MG TABLET PO SCH (21:52)
[2020-09-25] MEDS: SODIUM CHLORIDE FLUSH 0.9% 10 ML SYRINGE IVP SCH ×4 (00:33→23:44)
[2020-09-25] MEDS: cephALEXin 250 MG CAPSULE PO SCH ×5 (00:33→23:44)
[2020-09-25] MEDS: PANTOPRAZOLE 40 MG TABLET PO SCH (07:06)
[2020-09-25] MEDS: POTASSIUM CHLORIDE 20 MEQ/15 ML UDC PO SCH (08:49)
[2020-09-25] MEDS: FOLIC ACID 1 MG TABLET PO SCH (08:50)
[2020-09-25] MEDS: APIXABAN 5 MG TABLET PO SCH ×2 (08:50→20:57)
[2020-09-25] MEDS: FERROUS GLUCONATE 324 MG TABLET PO SCH (08:50)
[2020-09-25] MEDS: METOPROLOL SUCCINATE 25 MG TABLET PO SCH ×2 (08:51→20:57)
[2020-09-25] MEDS: polyethylene glycoL 3350 17 GM PACKET PO SCH (08:51)
[2020-09-25] MEDS: ASCORBIC ACID CHEW 500 MG TABLET PO SCH (08:51)
--- NOTE | 2020-09-25 08:53 | Discharge Plan ---
"Discharge Plan for SNF / [facility] - Discharge Plan And Transition Orders Problem Reviewed?: Yes Disposition: 03 SNF DC/Xfer Condition: Fair Allergies and Adverse Reactions: Allergies Allergy/AdvReac Type Severity Reaction Status Date / Time No Known Drug Allergies Allergy Verified 08/05/20 10:40 Health Concerns: You presented to our emergency room with increasing confusion since the last year. However, over the last month you have been particularly concerned fused, belligerent, and not doing well with poor appetite. You have been diagnosed with lymph gland enlargement that may be lymphoma and are going to be getting a biopsy October 07. We found you to be dehydrated, malnourished, and with significant fluid retention in your body due to congestive heart failure, malnutrition, and atrial fibrillation. Atrial fibrillation is an irregularly irregular heartbeat. Treatment consisted of giving you medicine to make you urinate to get rid of the excess fluid. Medicines to slow down your heart rate. We also put you on a blood thinner to reduce your risk of stroke. You had been in bed for so long you developed a heel ulcer that was quite severe and down to bone. You are on antibiotics for that and will need that for another week. He will also need chronic wound management of that heel. Plan of Treatment: 1. You will follow up with getting the lymph node biopsy to see if you have lymphoma 2. You will be followed by a wound management nurse to help you heal that ulcer on your heel 3. Please eat as well as you can to improve your nutrition 4. You will be discharged to a correction facility to improve your strength and nutrition and follow through with physical therapy 5. Follow-up with Dr. Vargas, oncology, to see what your future therapy will be Care Goals: To return to home, get stronger, and have a prolonged life with treatment for lymphoma if that is what you end up having Assessment: Patient has moderate cognitive deficit, will follow through for him. She is asking for palliative care consult which will be done in the outpatient setting when appropriate. - SNF / [facility] Transition Orders Admit to (Facility): [facility] Discharge Diagnosis: 1. Moderate cognitive deficit, combined etiologies 2. Metabolic encephalopathy resolved 3. Hyponatremia 4. Anasarca 5. Protein calorie malnutrition 6. Acute combined systolic and diastolic heart failure 7. Pleural effusion 8. Pressure heel of left ulcer, colonized with staph aureus (MSSA) 9. Anemia with folate deficiency 10. Paroxysmal atrial fibrillation with RVR 11. Hypokalemia resolved Medicare Certification Statement: I certify that [facility] Hospital correction care is medically necessary on a continuing basis for any of the conditions for which she/he is receiving care during hospitalization. Notify PCP of admission and forward orders to primary provider for signature. Weight on admission and: Monthly Other Notification Orders: Call PCP immediately if patient develops dyspnea, chest pain/tightness or edema. House Bowel Program: Yes Additional Bowel Program Orders: If no BM after 2 days, nurse may give M.O.M. 30ml PO PRN and/or ducolax Supp 1 GA and/or NERIS 250mg P.O., and/or senna 1-2 tabs PO. On day 3 nurse may give repeat above order until residents constipation is resolved. Annual Influenza Vaccine (between Jul 14 and February 10): Yes Two-step PPD per [facility] [id number] or approved exception documents: Yes Treatments & Other Orders: left heel ulcer to be treated per policy of SNF Medication Orders: PLEASE REFER TO THE DISCHARGE MEDICATION LIST. Insulin Orders?: No - Medications New Prescriptions: Potassium Chloride [K-Dur] 20 meq PO 0800 #1 tablet Furosemide [Lasix] 20 mg PO DAILY #1 tablet - Diet Type: No added salt Texture: Regular Liquids: Thin May have monthly special meal: Yes - Therapies | Activity Therapy: Evaluation | Treat if indicated: Speech, PT, OT Rehabilitation Potential: Return to independent living Activity: Activity as Tolerated Weight Bearing: Full Weight Assistance Devices: Wheelchair, Walker"
[2020-09-25] MEDS: SPIRONOLACTONE 25 MG TABLET PO SCH (11:52)
[2020-09-25] MEDS: lisinopriL 5 MG TABLET PO SCH (20:57)
[2020-09-26] MEDS: PANTOPRAZOLE 40 MG TABLET PO SCH (05:53)
[2020-09-26] MEDS: cephALEXin 250 MG CAPSULE PO SCH (05:53)
[2020-09-26] MEDS: POTASSIUM CHLORIDE 20 MEQ/15 ML UDC PO SCH (08:51)
[2020-09-26] MEDS: METOPROLOL SUCCINATE 25 MG TABLET PO SCH (08:52)
[2020-09-26] MEDS: FOLIC ACID 1 MG TABLET PO SCH (08:52)
[2020-09-26] MEDS: ASCORBIC ACID CHEW 500 MG TABLET PO SCH (08:52)
[2020-09-26] MEDS: APIXABAN 5 MG TABLET PO SCH (08:52)
[2020-09-26] MEDS: FERROUS GLUCONATE 324 MG TABLET PO SCH (08:52)
[2020-09-26] MEDS: polyethylene glycoL 3350 17 GM PACKET PO SCH (08:52)
[2020-09-26] MEDS: SODIUM CHLORIDE FLUSH 0.9% 10 ML SYRINGE IVP SCH (08:56)
[2020-09-26 11:00] VITALS: BP 119/59
--- NOTE | 2020-09-26 11:53 | DISCHARGE SUMMARY ---
"Discharge Summary Admit Date: 09/17/20 Discharge Date: 09/26/20 Discharging Provider: Jazmyn Pacheco MD Primary Care Provider: Radha Randall MD Code Status: Attempt Resuscitation Condition at Discharge: Fair Discharge Disposition: 03 SNF DC/Xfer - DIAGNOSES Discharge Diagnoses with Status of Each Condition: 1. Metabolic encephalopathy Present on admission and resolved 2. Lymphadenopathy, presumed lymphoma 3. Moderate cognitive deficit, Present on admission without resolution 4. Hyponatremia Resolved 5. Anasarca Present on admission 6. Protein calorie malnutrition Present on admission 7. Acute combined systolic and diastolic heart failure 8. Bilateral pleural effusions 9. Pressure heel left ulcer, colonized with staph aureus (MSSA) 10. Combined folate and iron deficiency anemia 11. Paroxysmal atrial fibrillation with RVR 12. Hypokalemia 13. Failure to thrive in an adult 14. Generalized weakness - HPI History of Present Illness: Patient is a 4-year-old male who was brought to the ED by his for concern of confusion last night. She reports that he was constantly trying to get out o f bed. He kept saying he had to get up and go. This is despite the fact that he is unable to stand due to weakness. They have a home health nurse who comes to the house. Upon presentation to the ED the patient's oxygen saturation was 88% on room air however he denied shortness of breath. Work-up in the ED showed a BNP which was greater than 2000, troponin [address] scan of the chest showed moderate bilateral pleural effusion which was worse than the previous image that was done. The patient also has significant anasarca. It is more prominent on his legs and arms. The patient sees Dr. Von Vargas at the [facility]. His primary care physician is Dr. Randall and she had referred the patient to Dr. Vargas for work-up of anemia. The patient subsequently had bone marrow biopsy which was unremarkable and a colonoscopy which showed a gastric ulcer for which he was put on Prilosec twice daily. Over the past 5 months the patient has lost over 30 pounds due to poor appetite. Imaging he had done ordered by Dr. Vargas showed retroperitoneal lymphadenopathy for which lymphoma was suspected. The patient is due for biopsy of the lymph nodes at [place] on October 07, 2020 for further characterization. He was also found to be in atrial fibrillation with a heart rate between 101 and 110. He does not have any previous history of atrial fibrillation. As a result of his laboratory and radiologic findings he was presented for admission. At bedside the patient appears to be resting comfortably. He appears somewhat pale. He does not have any chest pain, dyspnea, abdominal pain, nausea, vom iting, fever or chills. - Past Medical History GI: reports: Ulcers (gastric) MRSA Hx?: No Other Past Medical History: lymphoma - Past Surgical History Other past surgical history: Bone marrow biopsy - CONSULTS | PROCEDURES Consultations: Palliative Care. General Surgery. Procedures: 1. Chest x-ray with persistent appearance of mild to moderate bilateral pleural effusions. Areas of underlying atelectasis and/or pneumonia cannot be excluded. 2. Head CT with out acute intracranial abnormalities. Age-related senescent changes and sequela of chronic microvascular ischemic disease. 3. Chest CT with moderate bilateral pleural effusions, increased since September 04, 2020. Superimposed air consolidation could be present. Unchanged appearance of splenic and hepatic lesions with upper abdominal adenopathy. 4. Brain MRI not able to be concluded so it is a highly limited exam. The patient had claustrophobia. No findings of acute or subacute infarction seen. 5. Blood cultures on September 17 and September 18 and September 19 are negative after 5 days. 6. Wound culture grew out staph aureus and yeast from his heel 7. Fecal occult blood test without blood detected September 22. 8. Anemia panel: B12 542 and normal, folate low at 4.16, TSH normal at 1.61. His iron was reviewed from January 29, 2018, June 24, 2020, and August 31, 2020. All of them are low in range anywhere between 16-35. 9. Echocardiogram shows left ventricular systolic function moderately globally impaired with an ejection fraction 35 to 40%. Grade 1 diastolic heart failure. Mild to moderate secondary mitral regurgitation. No atrial shunt seen. 10. Excisional debridement of left full-thickness necrosis of posterior left heel. - HOSPITAL COURSE Hospital Course: The patient presented as increasing confusion according to the . In speaking to her at length, she notes that her started to deteriorate over a year ago. He is always been a stubborn individual and did not like being told what to do but he was starting to lose the threads of conversation, have episodes of word finding difficulty, and not remember certain things. He seemed to not be doing well with appetite. She then had a evaluated but feels that she made a mistake and not going in with him on his visits. She was very concerned about memory loss and had him see Dr. Randall in March of this year. Mini- Mental Status was 29 out of 30. Again the did not going with that visit a nd he came out of that visit with not much work-up being done. But she feels in retrospect that if she had been in the office with her she would have stressed his deterioration to both primary care provider and manifest clerk. He continued to deteriorate until eventually he was diagnosed with lymphadenopathy. He is now been under the care of Dr. Von Vargas, Oncology at [place]. describes him as having an anemia work-up with a colonoscopy and EGD. He has peptic ulcer disease. He had a bone marrow biopsy and that is negative. He is now scheduled for a lymph gland biopsy October 07. In the meantime this patient is continued to deteriorate with regards to mentation, increasing lethargy, decreasing p.o. intake, and being more and more sedentary. She brought him to the emergency room where he was found to be in atrial fibrillation, congestive heart failure, bilateral pleural effusions, and very significant anasarca.He also had a left heel ulcer that was full-thickness. Treatment consisted of diuresis, trying to address his malnutrition but he had very poor appetite. Very lethargic. Initial confusion cleared somewhat but he has baseline cognitive deficits. He kept on wanting to go home. Insisting that that is where he was going. But from a physical perspective was very weak, unable to sit up on his own. At one point I responded to his request to go home by asking him to please sit up, stand up, and walk to the door for me. If he could do that he could go home. He was unable to sit up. Physical therapy feels that he should require some longterm rehab to get his strength back up. However, the is starting to recognize that her is deteriorating in spite of intervention. He is getting weaker and weaker. While we have helped his anasarca tremendously, he still the same baseline person with cognitive deficits, stubborn personality, and lack of motivation to do much. She asked for palliative care consultation. Unfortunately staffing issues precluded an in-house consultation. They are aware of our needs, and will see the patient in the outpatient setting. Anemia was addressed and he has documented iron deficiency, folate deficiency and knowledge of peptic ulcer disease. Fecal occult blood negative. He is on a proton pump inhibitor. On folate. On ferrous gluconate. Left heel was debrided by Dr. Kaitlynn Duenas. He is on Ancef. Without a fever or white cell count, most likely that can be stopped in the next few days once he is at the longterm facility. General surgery changed the dressings on September 21. Dressing was changed to Aquacel at the bedside. Dressing can stay in place till September 26. At that time dressing change to be changed for the same thing after being cleaned and dried with NS and soap. He is to follow-up with longterm facility protocol for wound management. In the outpatient setting he can be seen by the wound care clinic here at the hospital. A. fib converted to sinus rhythm. He is started on spironolactone, Lasix, potassium, metoprolol, lisinopril. Also Eliquis. We do know that the spironolactone is potassium sparing, but during his stay he needed daily po tassium supplementation. I have asked the longterm facility to check his BMP.The hope is that this patient will recover enough strength and stabilize his heart failure and improve his nutrition enough to undergo therapy once a diagnosis is made. I do not know if this is possible considering his poor functional status. We felt that the patient was medically stable 2 days prior to admission. The longterm facility accepted the patient in transfer. However we waited for 3 days for authorization from insurance company. Once we receive that authorization we were able to transfer the patient. At discharge his temperature is 37.2, pulse 78, blood pressure 119/59. Respirations 18 and he is 96% on room air. Weight on admission was 89 kg on September 17. He was 83 kg August 05. At discharge he is 91.5 kg. Even though anasarca of his general body, scrotum, and thighs improved, he still has 2+ edema of his legs. He wakes to voice, will respond and have complete conversations but he is vague, cachectic, malnourished looking. Lungs have diminished breath sounds at the bases without any increased respiratory effort. Slow unlabored respiration. He has a regular rate and rhythm with a systolic ejection murmur. The abdomen is protuberant, soft, nontender. Still has edema around the buttocks, lower abdominal pannus, but no skin breakdown. He has a left heel ulcer that is been seen by wound care and Dr. Duenas. It is covered, clean dressing. Physical therapy saw him the day before discharge and he participated in 10 minutes of occupational therapy and was able to cooperate with following task. He also worked with physical therapy on standing and transitioning. Greater than 30 minutes was spent coordinating discharge. - ALLERGIES Allergies/Adverse Reactions: Allergies Allergy/AdvReac Type Severity Reaction Status Date / Time No Known Drug Allergies Allergy Verified 08/05/20 10:40 - MEDICATIONS Home Medications: Ambulatory Orders Medication Instructions Recorded Confirmed Ferrous Gluconate 240 mg PO DAILY 09/18/20 09/18/20 Acetaminophen [Tylenol] 650 mg PO Q4HR PRN tablet 09/25/20 Apixaban [Eliquis] 5 mg PO BID tablet 09/25/20 Ascorbic Acid Chew [Vitamin C] 500 mg PO DAILY tablet 09/25/20 Ferrous Gluconate [Fergon] 324 mg PO DAILYWM tablet 09/25/20 Folic Acid 1 mg PO DAILY tablet 09/25/20 Furosemide [Lasix] 20 mg PO DAILY #1 tablet 09/25/20 Metoprolol Succinate [Toprol Xl] 25 mg PO BID tablet 09/25/20 Min Oil/Dimeth/Coconut Oil Crm 1 applic TOP PRN PRN tube 09/25/20 [Cavilon] Pantoprazole [Protonix] 40 mg PO QDAC tablet 09/25/20 Potassium Chloride [K-Dur] 20 meq PO 0800 #1 tablet 09/25/20 Spironolactone [Aldactone] 25 mg PO 1200 tablet 09/25/20 Zinc Oxide 20% Oint [Zinc Oxide] 1 applic TOP PRN PRN tube 09/25/20 cephALEXin [Keflex] 500 mg PO Q6HR capsule 09/25/20 diphenhydrAMINE [Benadryl] 25 mg PO QPM PRN capsule 09/25/20 lisinopriL [Zestril] 5 mg PO QPM tablet 09/25/20 - LABS Result Diagrams: 09/22/20 05:30 09/24/20 04:35"
== END 2020-09-26 11:05 | DRG 40 ==
LOC: ED 18:07 → MS2 19:56
PROVIDERS: ADMIT Internal Medicine; ATTEND Specialist
PROC: 30233N1 Transfusion of Nonautologous Red Blood Cells into Peripheral Vein, Percutaneous Approach (ICD-10-PCS; 2020-09-19)
PROC: 0JBR0ZZ Excision of Left Foot Subcutaneous Tissue and Fascia, Open Approach (ICD-10-PCS; principal; 2020-09-20 08:38)
DX: G93.41 Metabolic encephalopathy (principal); I50.41 Acute combined systolic (congestive) and diastolic (congestive) heart failure; L89.624 Pressure ulcer of left heel, stage 4; E43 Unspecified severe protein-calorie malnutrition; E87.1 Hypo-osmolality and hyponatremia; R64 Cachexia; I96 Gangrene, not elsewhere classified; I24.8 Other forms of acute ischemic heart disease; I42.9 Cardiomyopathy, unspecified; J90 Pleural effusion, not elsewhere classified; C85.93 Non-Hodgkin lymphoma, unspecified, intra-abdominal lymph nodes; B95.61 Methicillin susceptible Staphylococcus aureus infection as the cause of diseases classified elsewhere; I48.91 Unspecified atrial fibrillation; I48.0 Paroxysmal atrial fibrillation; E87.6 Hypokalemia; R62.7 Adult failure to thrive; F03.90 Unspecified dementia, unspecified severity, without behavioral disturbance, psychotic disturbance, mood disturbance, and anxiety; D50.9 Iron deficiency anemia, unspecified; D52.9 Folate deficiency anemia, unspecified; I34.0 Nonrheumatic mitral (valve) insufficiency; K21.9 Gastro-esophageal reflux disease without esophagitis; Z68.26 Body mass index [BMI] 26.0-26.9, adult; F40.240 Claustrophobia; R41.82 Altered mental status, unspecified; Z51.5 Encounter for palliative care; Z74.01 Bed confinement status; R09.02 Hypoxemia; R79.89 Other specified abnormal findings of blood chemistry; L89.629 Pressure ulcer of left heel, unspecified stage; Z20.828 Contact with and (suspected) exposure to other viral communicable diseases; Z79.899 Other long term (current) drug therapy; Z87.891 Personal history of nicotine dependence; Z87.11 Personal history of peptic ulcer disease; Z91.81 History of falling; Z75.1 Person awaiting admission to adequate facility elsewhere
CPT/HCPCS: 36415; 51701; 70450; 70551; 71045; 71260; 80048; 80053; 80202; 81003; 82272; 82607; 82746; 83605; 83690; 83735; 83880; 84443; 84484; 85014; 85018; 85025; 85610; 86850; 86900; 86901; 86920; 87040; 87070; 87181; 87205; 87640; 93005; 93306; 97161; 97165; 97530; 99285; A6250; A9270; J3370; J7120; P9016; P9047; Q9967; U0004; 80306; 81001; 87086